=== PATIENT | female | born 1960 | race Caucasian/White ===

== ENCOUNTER 2019-07-07 13:44 | Emergency (ER) | payer OTHER, SELFPAY ==
[2019-07-07] VITALS (7 sets, daily range): BP systolic 131–163; BP diastolic 74–90; PULSE 84–103; RESP 14–18; TEMP 37.3; O2SAT 94–99; BMI 31.0
--- NOTE | 2019-07-07 13:50 | RAD_ITS ---
STUDY: X-RAY - LEFT ANKLE REASON FOR EXAM: Female, 59 years old. Fall TECHNIQUE: 2 view(s) of the ankle. COMPARISON: None. FINDINGS: There is a comminuted fracture of the distal fibula. There is a fracture of the medial malleolus. There is a faint lucency in the lateral view which likely represents a minimally displaced fracture of the posterior malleolus. There is dislocation of the ankle. RAD/Ankle min 3 Views IMPRESSION: Fracture dislocation of the left ankle, as described above. Electronically Signed: Keyur Regalado, at 14:20 EDT Tel , Service support ,
--- NOTE | 2019-07-07 13:52 | ED.VIS.LOWEX ---
History of Present Illness <Andrey Marquez - Last Filed: 07/07/19 15:02> Informant: Patient Occurred: Today Mechanism/Context: Fall Onset: Today Context: Sudden Onset Timing: Continuous Quality of Pain: Sharp Location: left ankle Current Severity: Mild Maximum Severity: Moderate Worsened by: movement Relieved by: nothing Associated Symptoms: Negative for: Parasthesia, Weakness, Loss of Funtion Narrative: 59-year-old female presents by squad with a left ankle injury. Patient was on a stool standing cleaning windows fell and injured her left ankle. She did not hit her head or lose consciousness and she denies any other injuries at this time. She is not on anticoagulation. She denies numbness or tingling. She denies history of injury or surgery to this extremity previously. Tetanus Immunization: Unknown Prior similar symptoms: No Recent Illness/Hospitalization: No <Georgi Gonzalez - Last Filed: 07/07/19 15:16> Chief Complaint: Lower Extremity Injury Past Medical History <Andrey Marquez - Last Filed: 07/07/19 15:02> Prior records reviewed: Yes Past Medical History: None Surgical History: - - tubal ligation Lives: With Family Smoking Status: Current every day smoker Alcohol: Occasional Drugs: None <Georgi Gonzalez - Last Filed: 07/07/19 15:16> - Allergies and Home Meds Allergies/Adverse Reactions: Allergies aspirin Allergy (Verified 07/07/19 13:46) Shortness of breath clarithromycin [From Biaxin] Allergy (Verified 07/07/19 13:46) Rash zinc Allergy (Verified 07/07/19 13:46) Rash Primary Care Physician: NOT,DEFINED [Primary Care Provider] - (your orthopaedic surgeon of choice -- call tuesday for appt JILLIAN) Review of Systems All systems negative except as indicated General: Denies: Chills, Fever, Malaise Eyes: Denies: Visual changes - bilaterally, Blurred Vision - bilaterally, Diplopia ENT: Denies: Rhinorrhea, Sore throat Cardiovascular: Denies: Chest pain, Palpitations, Heart racing Respiratory: Denies: Dyspnea, Cough, Sputum Gastrointestinal: Denies: Abdominal pain, Nausea, Vomiting, Diarrhea Genitourinary: Denies: Dysuria, Hematuria, Frequency Musculoskeletal: Reports: Extremity Pain. Denies: Myalgias, Arthralgias, Neck pain, Back pain Skin: Denies: Rash, Abscess, Abrasions, Wounds Neurological: Denies: Headache, Weakness, Parasthesia, Numbness <Georgi Gonzalez - Last Filed: 07/07/19 15:16> Physical Exam Vital Signs/Narrative: Vital Signs Temp Pulse Pulse Pulse Pulse Resp Resp 07/07/19 14:55 85 17 07/07/19 14:50 90 18 07/07/19 14:45 91 18 07/07/19 14:35 103 H 102 H 86 16 07/07/19 14:18 88 18 07/07/19 13:45 99.2 F H 103 H 15 Resp Resp BP BP BP BP Pulse Ox 07/07/19 14:55 146/81 H 95 07/07/19 14:50 137/79 H 95 07/07/19 14:45 145/88 H 97 07/07/19 14:35 14 18 161/85 H 147/82 H 136/74 H 07/07/19 14:18 154/88 H 97 07/07/19 13:45 163/90 H 95 <Andrey Marquez - Last Filed: 07/07/19 15:02> Vital Signs/Narrative: Vital Signs Temp Pulse Resp BP Pulse Ox 07/07/19 13:45 99.2 F H 103 H 15 163/90 H 95 Inital Vital Signs reviewed: Yes - Extremity Exam Left Ankle: Contusion, Deformity, Edema, - - Patient has an obvious deformity to her left ankle. The skin is intact. DP and PT pulses are normal. She had normal capillary refill and sensation of all 5 toes. She had no bony tenderness of her foot leg or knee. General: Well nourished, Well developed Head: Normocephalic, Atraumatic. Negative for: Trauma Eyes: Perrl, EOMI ENT: No Trauma, Moist Mucous Membranes Neck: Nontender, Full ROM. Negative for: Spinal Tenderness, Paraspinal Tenderness Cardiovascular: Regular rate, Regular rhythm, No murmurs Respiratory: No distress, CTA bilaterally, Chest nontender Abdomen: Soft, Nontender, Nondistended, Normal bowel sounds, No masses Back: Nontender Skin: Normal color, No rash, Trauma Neurological: Alert, Oriented x3 Psychological: Normal affect, Normal Mood <Georgi Gonzalez - Last Filed: 07/07/19 15:16> Diagnostic/Tx/Re-eval - Medical Decision Making Seen and evaluated independently and in conjunction with physician assistant tennis professional. Agree with notes above unless documented otherwise. Patient has isolated closed fracture dislocation trimalleolar left ankle. See the procedure note and x-rays for details, she was sedated safely, reduced, splinted, there were no complications. She will follow-up as an outpatient and [place] [facility], she has an orthopedic surgeon in mind that she will see so she was given her x-rays on disc. <Andrey Marquez - Last Filed: 07/07/19 15:02> Impressions Ankle X-Ray 07/07/19 14:49 IMPRESSION: Status post reduction and casting with improved alignment. Electronically Signed: Keyur Fabricio, at 15:07 EDT Tel , Service support , 07/07/19 13:50 Ankle min 3 Views [RAD] Stat 07/07/19 14:49 XRAY Ankle [Ankle 2 Views] [RAD] Stat Laboratory Results 07/07/19 07/07/19 13:55 13:55 WBC 9.8 RBC 4.90 Hgb 13.7 Hct 44.1 MCV 90.0 MCH 28.0 MCHC 31.1 L RDW Std Deviation 47.6 H RDW Coeff of Delilah 14.4 Plt Count 369 MPV 9.1 Immature Gran % (Auto) 0.300 Neut % (Auto) 65.4 Lymph % (Auto) 26.1 [place] % (Auto) 6.9 Eos % (Auto) 0.9 Baso % (Auto) 0.4 Absolute Neuts (auto) 6.4 Absolute Lymphs (auto) 2.56 Nucleated RBC % 0 Sodium 140 Potassium 3.6 Chloride 106 Carbon Dioxide 28.0 Anion Gap 6 BUN 13 Creatinine 1.08 H Estim Creat Clear Calc 44.36 Est GFR (MDRD) Af Amer 67 Est GFR (MDRD) Non-Af 55 L BUN/Creatinine Ratio 12.0 Glucose 134 H Calcium 8.7 <Georgi Gonzalez - Last Filed: 07/07/19 15:16> Procedures - Lower Extremity Splints Lower Extremity Splint: Jose Espinosa - Short leg posterior and sugar tong; neurovascularly intact distally after splinting. Splint Fabrication: Fabricated Location: Left Procedure(s): Procedural sedation --patient had been n.p.o. for just over 1 hour at the time of sedation, so we did not sedate her deeply. We discussed the risks of aspiration with her, and alternative treatments other than sedation. She consented to sedation and preferred it despite the risks. She was pretreated with fentanyl 50 mcg and midazolam 4 mg. She was on nasal cannula oxygen, IV fluids, monitored the entire time, there were no complications and the patient tolerated sedation well and recovered uneventfully. Closed reduction left closed ankle fracture dislocation --prior to reduction, there was a 3-4-second cap refill, skin intact. Sedation as above was performed. Assisted by both physician assistant tennis professional and nursing, manual reduction was performed very easily, and splinting was performed. Neurovascularly intact distally after closed reduction with 2-3-second cap refill. X-rays show good reduction. <Andrey Marquez - Last Filed: 07/07/19 15:02> ED Disposition <Andrey Marquez - Last Filed: 07/07/19 15:02> <Georgi Gonzalez - Last Filed: 07/07/19 15:16> - Plan for ED Patient: Disposition: Home or Assisted Living Diagnosis: Displaced trimalleolar fracture of left lower leg, initial encounter for closed fracture Prescriptions: Oxycodone HCl/Acetaminophen [Percocet 5/325] 1 tab PO Q4H PRN PRN 3 Days #20 tab PRN Reason: Pain Prescription Printed Referrals: NOT,DEFINED [Primary Care Provider] - (your orthopaedic surgeon of choice -- call tuesday for appt JILLIAN) Damien Greco DO [STAFF PHYSICIAN] - Additional Instructions: NO weightbearing left lower extremity; use crutches, walker, assistance, whatever you need.
[2019-07-07 14:00] LABS: Absolute Lymphocyte Count 2.56 X10^3/uL (0.83-4.51); Absolute Neutrophil Count 6.4 X10^3/uL (2.0-7.7); Basophil# 0.04 X10^3/uL; Basophil% 0.4 % (0-1); Eosinophil# 0.09 X10^3/uL; Eosinophils% 0.9 % (0-5); Hematocrit 44.1 % (37-47); Hemoglobin 13.7 g/dL (12.0-15.0); Lymphocyte # 2.56 X10^3/ul (4.0); Lymphocyte % 26.1 % (19-41); Mean Corp Hgb Conc 31.1 g/dL (32-36); Mean Platelet Vol. 9.1 fl (6.2-12.0); Monocyte# 0.68 X10^3/uL; Monocyte% 6.9 % (0-10); NRBC Flagged by Analyzer 0 % (0-5); Neutrophil # 6.42 X10^3/uL (2.7-7.7); Neutrophil % 65.4 % (47-70); Platelet Count 369 K/mm3 (150-450); RBC Distribution Width CV 14.4 % (11.6-14.6); RBC Distribution Width SD 47.6 fl (35.1-43.9); White Blood Count 9.8 K/mm3 (4.4-11.0)
--- NOTE | 2019-07-07 14:05 | ED.RN ---
PTS FAMILY VERY UNDERSTANDING WITH NO VISITORS BUT WOULD LIKE A CALL WITH AN UPDATE OF PT. CALL MOM FIRST KERA - [phone]. IF NO ANSWER PLEASE CALL SISTER MARTIN @ [phone]
[2019-07-07 14:13] LABS: Anion Gap 6 (5-15); BUN 13 mg/dL (7-18); Calcium,Total 8.7 mg/dL (8.5-10.1); Chloride 106 mmol/L (98-107); Creatinine, Serum 1.08 mg/dL (0.55-1.02); EST Glomerular Filtration Rate 55 mL/min (>60); Est Glom Filt Rate - Afr Amer 67 mL/min (>60); Estimated Creatinine Clearance 44.36 ml/min; Glucose 134 mg/dL (74-106); Potassium 3.6 mmol/L (3.5-5.1); Sodium Level 140 mmol/L (136-145)
[2019-07-07] MEDS: fentaNYL 100 MCG/2 ML Ampul 50 MCG IV (14:30)
[2019-07-07] MEDS: Midazolam 5 MG/ML Syringe 4 MG IV (14:34)
--- NOTE | 2019-07-07 14:49 | RAD_ITS ---
STUDY: X-RAY - LEFT ANKLE REASON FOR EXAM: Female, 59 years old. Post reduction TECHNIQUE: 2 view(s) of the ankle. COMPARISON: 07/07/2019 FINDINGS: The patient is status post reduction and casting of the previously seen fracture dislocation of the left ankle. Alignment is improved. RAD/Ankle 2 Views IMPRESSION: Status post reduction and casting with improved alignment. Electronically Signed: Keyur Regalado, at 15:07 EDT Tel , Service support ,
== END 2019-07-07 15:36 | disposition home or self-care (01) ==
LOC: ED 15:19
PROVIDERS: Emergency Provider Physician Assistant Medical
DX: S82.852A Displaced trimalleolar fracture of left lower leg, initial encounter for closed fracture (principal); W08.XXXA Fall from other furniture, initial encounter; Y93.E9 Activity, other interior property and clothing maintenance; Y92.89 Other specified places as the place of occurrence of the external cause; Y99.9 Unspecified external cause status; F17.200 Nicotine dependence, unspecified, uncomplicated
CPT/HCPCS: 27818; 73600; 73610; 80048; 85025; 96374; 96375; 99152; 99285; J7030; A4216

== ENCOUNTER 2019-07-19 06:14 | Day surgery (SDC) | payer OTHER, SELFPAY ==
[2019-07-07 13:45] VITALS: BMI 31.0
--- NOTE | 2019-07-12 15:13 | CT_ITS ---
STUDY: CT LEFT ANKLE WITHOUT CONTRAST REASON FOR EXAM: Female, 59 years old. DISPLACED TRIMALLEOLAR FX RADIATION DOSAGE (If Supplied By Facility): CTDIvol = ( 15.35 ) mGy, DLP = ( 449.71 ) mGycm TECHNIQUE: Thin section transaxial imaging of the ankle was obtained, with sagittal and coronal reconstructed images. Individualized dose optimization techniques were used for this CT. COMPARISON: Comparison is made with prior radiographs dated July 07, 2019. FINDINGS: There is evidence of an avulsion fracture of the medial malleolus. There is evidence of an oblique fracture of the lateral malleolus with a mild lateral displacement of the distal fracture fragment. There is also evidence of a nondisplaced vertical fracture of the distal portion of the tibia. There is evidence of a asymmetry of the ankle mortise. A spur is seen at the insertion of the Achilles tendon.. Normal subtalar, talonavicular and calcaneocuboid articulations. Normal navicular-cuneiform, cuneiform tarsal bones and intercuneiform articulations. Normal tarsometatarsal articulations and visualized metatarsi. Diffuse soft tissue swelling. CT/Extremity Lower without Contra IMPRESSION: Trimalleolar fracture as described. Asymmetry of the ankle mortise. Diffuse soft tissue swelling. Electronically Signed: Gerson Gonzalez, at 15:41 EDT , Service support ,
--- NOTE | 2019-07-12 15:13 | RAD_ITS ---
STUDY: X-RAY CHEST REASON FOR EXAM: Female, 59 years old. PRE OP ANKLE TECHNIQUE: PA and lateral views of the chest. COMPARISON: None. FINDINGS: Scattered calcified granulomas. No acute abnormality is seen. There is no demonstrated pleural abnormality. Normal size heart. Normal mediastinum and brandy. Normal visualized pulmonary arteries. Normal visualized aortic arch and descending thoracic aorta. There are diffuse degenerative changes of the visualized thoracic spine. Mild dextroscoliosis. Normal visualized ribs, clavicles, and shoulders. There is no demonstrated abnormality of the visualized soft tissue structures of the upper abdomen. RAD/Chest PA and Lateral IMPRESSION: No acute abnormality is seen. Electronically Signed: Gerson Gonzalez, at 15:39 EDT , Service support ,
--- NOTE | 2019-07-12 15:14 | EKG12_ITS ---
Test Reason : PREOP Blood Pressure : / mmHG Vent. Rate : 106 BPM Atrial Rate : 106 BPM P-R Int : 148 ms QRS Dur : 090 ms QT Int : 332 ms P-R-T Axes : 066 -39 051 degrees QTc Int : 441 ms Sinus tachycardia Left axis deviation Abnormal ECG No previous ECGs available Confirmed by TANYA BUTLER, PAUL ([id number]), editor index MICK CULLEN ([id number]) on 07/17/2019 9:00:19 AM Referred By: Al Cullen Confirmed By:PAUL MARTÍNEZ MD
[2019-07-12 17:01] LABS: Partial Thromboplast Time 26.7 Seconds (24.1-36.2); Prothrombin Time (Protime)PT. 12.2 SECONDS (11.7-14.9)
[2019-07-12 17:26] LABS: Hemoglobin A1c 5.8 % (3.8-5.6)
[2019-07-19] VITALS (8 sets, daily range): BP systolic 130–154; BP diastolic 74–92; PULSE 72–80; RESP 14–18; TEMP 36.4–36.9; O2SAT 92–99; BMI 29.3
[2019-07-19] MEDS: Lactated Ringers 1,000 ML 100 ML IV (07:08)
--- NOTE | 2019-07-19 07:50 | RAD_ITS ---
STUDY: X-RAY - LEFT ANKLE REASON FOR EXAM: Female, 59 years old. Left ORIF Trimalleolar TECHNIQUE: 3 view(s) of the ankle. COMPARISON: None. FINDINGS: Intraoperative imaging provided for open reduction and internal fixation of the lateral malleolar fracture utilizing screws and sideplate fixation device. RAD/Ankle min 3 Views IMPRESSION: ORIF lateral malleolar fracture. There is good alignment. Electronically Signed: Gerson Gonzalez, at 13:56 EDT , Service support ,
[2019-07-19] MEDS: Cefazolin 2 GM in 0.9% Normal Saline 100 ML IV (08:14)
[2019-07-19] MEDS: Bupivacaine Mpf 0.5% 30 ML VIAL (08:30)
--- NOTE | 2019-07-19 10:42 | RAD_ITS ---
STUDY: X-RAY - LEFT ANKLE REASON FOR EXAM: Female, 59 years old. ORIF the trimalleolar fracture TECHNIQUE: 3 view(s) of the ankle. COMPARISON: Comparison is made with prior study done earlier in the day. FINDINGS: The patient is status post ORIF of the lateral malleolar fracture utilizing screw and sideplate fixation device. There is evidence of a screw fixation of the medial malleolar fracture. There is good alignment. RAD/Ankle min 3 Views IMPRESSION: Status post ORIF of the medial and lateral malleolar fractures. There is good alignment. Postoperative soft tissue changes. Electronically Signed: Gerson Gonzalez, at 13:57 EDT , Service support ,
--- NOTE | 2019-07-19 10:47 | PCM.DC.ORTHO ---
Discharge Diet: No Restrictions Discharge Activity: May Not Drive, May Not Shower, Use Walker, Use Crutches Ice area for (Minutes): 20 Weight Bearing Status: No weight bearing Keep extremity elevated above heart level: Left Leg Additional Activity Instructions:: 1. Keep dressing clean, dry, intact to the left lower extremity. Do not remove dressing. Do not get dressing wet. If get dressing wet, call office for further instructions. I recommend sponge bathing only at this time. 2. Elevate left foot above level of heart as much as possible until follow-up appointment. 3. Ice around the left knee 20 minutes on, 20 minutes off, every hour while you are awake until follow-up appointment. 4. No walking or standing on left foot. Use crutches/walker/scooter for assistance. 5. [facility], as instructed. Begin taking these when you start to feel pain. Take them as needed and as instructed. Can supplement with Tylenol, but make sure to not take more than 3000mg of Tyelenol in a 24 hour period. 6. Begin taking the doxycycline (antibiotic) tomorrow, July 19. This is twice a day. 7. Begin taking Xarelto tomorrow, July 19, as instructed. Call your doctor if your incision/area has: Sudden Increased Bleeding, Increased Pain/ Swelling Call your doctor if you observe: Fever of 101 or Higher, Coldness, Increased Pain, Inability to have a bowel movement, Shortness of breath, Chest pain, Prolonged hiccoughing, Increased palpitations (irregular heartbeat), Calf discomfort, Uncontrolled pain Cleanse incision/area with: Keep Dressing Clean & Dry Allergies/Adverse Reactions: Allergies aspirin Allergy (Verified 07/19/19 06:51) Shortness of breath clarithromycin [From Biaxin] Allergy (Verified 07/19/19 06:51) Rash zinc Allergy (Verified 07/19/19 06:51) Rash yellow jacket stings Allergy (Severe, Uncoded 07/19/19 06:51) Anaphylaxis environmental Allergy (Uncoded 07/19/19 06:51) Rash Medications to take at Discharge Acetaminophen [Tylenol Extra Strength] 500 - 1,000 mg PO Q6H PRN PRN 07/13/19 Epi Pen (for allergic rxn) 0.3 mg IM X1 07/13/19 Fluticasone 0.05% [Flonase Nasal [place]] 1 spray NASAL DAILY 07/13/19 Primary Care Physician: NAOMI BABIN [Other] Test Results: Test results from this visit will be discussed in further detail at your follow-up appointment, if applicable. Please Follow Up With: Al Cullen DPM When: as previously instructed Proposed Discharge Date: 07/19/19
--- NOTE | 2019-07-19 10:53 | PCM.OPRPT ---
Problem List (1) Fracture of ankle, trimalleolar, left, closed Status: Acute Qualifiers: Encounter type: initial encounter Qualified Code(s): S82.852A - Displaced trimalleolar fracture of left lower leg, initial encounter for closed fracture Report of Operation Date of Procedure: 07/19/19 Pre-Operative Diagnosis: 1. Left ankle joint trimalleolar fracture. 2. Left ankle joint dislocation Post-Operative Diagnosis: Same as preoperative Surgery/Procedure Performed:: 1. Left ankle open reduction with internal fixation of trimalleolar fracture. 2. Application of bone graft, left fibula. 3. Primary repair of deltoid ligament. Description of Surgical Findings:: Consistent with diagnosis. Comminution of fibular fracture noted. Due to multiple fragments, it was necessary to place a bone graft. manager code: Gauri Yoo Type of Anesthesia:: General/Regional - with a popliteal and saphenous block to the left lower extremity Anesthesiologist: Francisco Javier Padilla Special Medications: 2 g of Ancef given preoperatively Specimen's removed: None Drains: None Estimated Blood Loss (mL): 50 Description of Procedure: Anesthesia: General with a popliteal and saphenous block to left lower extremity Hemostasis: Pneumatic thigh tourniquet placed at the level of left thigh at 250 mmHg for 101 minutes Materials: #1. [place] Vitoss 2. [place] 4 hole distal lateral fibula plate. 3. [place] Asnis 4.0 x 30 mm partially-threaded screw. 4. Jovita Asnis 4.0 x 50 mm partially-threaded screw. 5. Jovita 3.5 x 12 mm locking screw x2. 6. [place] 3.5 x 14 mm locking screw. 7. Jovita 3.5 x 12 mm nonlocking screw x2. 8. [place] 3.5 x 14 mm nonlocking screw x2. 9. Jovita 3.5 x 16 mm nonlocking screw x1. 10. Size 2-0 Vicryl. 11. Size 3-0 Vicryl. 12. Size 4-0 nylon. Injectables: None Condition: Stable Indications: Patient is a 59-year-old female with multiple medical problems who suffered a slip and fall while at her mother's house on July 07, 2019. Patient states that she was up on a stepstool cleaning windows. She did lose her balance, and fell with full weight on her left ankle. Patient felt immediate pain in her left ankle, and noticed a deformity. Patient presented to the [facility] emergency department after the injury. X-rays were taken, revealing a trimalleolar fracture of the left ankle along with ankle joint dislocation. At that time, a closed reduction was performed, patient was then placed in a posterior splint and sent for follow-up. Patient initially presented to my office on July 08. At that time, clinical evaluation revealed significant swelling with loss of skin lines noted around the left ankle. I discussed with the patient that due to the significant swelling, we would have to wait a period of 10 to 14 days to allow the soft tissue edema to decrease. In the meantime, I ordered a CT scan of the left ankle for preoperative planning along with preoperative testing. I did discuss with the patient that due to the deformity that was present along with the fracture of her ankle, I recommended surgical intervention. I did discuss with the patient that since she is a smoker, she is at a significantly higher risk for delayed or nonhealing wound and delayed or nonhealing bone. I instructed the patient on proper smoking cessation, and the need for her to reduce and eventually quit her smoking to aid in her healing. Patient was agreeable to this. Patient then presented back to my office on July 15. A significant reduction in the swelling was noted. CT scan was then reviewed with the patient in detail at that time. I discussed with the patient the surgical intervention of the left ankle, including open reduction with internal fixation of the ankle fracture. Patient displayed verbal understanding. Patient was agreeable to the surgical intervention, which was scheduled today, July 19, 2019. Operative report: Before the patient was brought to the operating room, the risks, benefits, possible outcomes, possible complications of the procedure were discussed with the patient. These included but not limited to delayed or nonhealing wounds, delayed or nonhealing bone, infection, DVT, loss of function of limb, decreased function of limb, loss of limb, loss of life. COVID-19 risks were discussed with her as well. Since this surgery was necessary to avoid permanent dysfunction of her limb, patient understood and accepted the risks. Her smoking status and proper cessation was reiterated once again. All the patient's questions were answered to her satisfaction and all of her concerns were addressed. No guarantees were made as to the outcome of the procedure. Patient understood all aspects of the procedure, and consent was then signed by the patient. Before the patient was brought to the operating room, the anesthesiologist administered a popliteal block to the left lower extremity. Patient was then brought to the operating room and placed on the operating table in the supine position. Care was taken make sure that adequate padding was placed in all pressure points. Anesthesia then to control the airway, and general anesthesia was obtained. Next, 10 mL of 0.5% Marcaine plain was distributed a proximal saphenous nerve block fashion in the area of the medial tibial tuberosity. Next, well-padded pneumatic thigh tourniquet was placed at the level of the left thigh. The left foot, ankle, leg were then scrubbed, prepped, draped in the usual sterile manner. At this time, attention was then directed to the lateral aspect of the left ankle. Radiographic evaluation was performed to determine the level of the distal tip of the lateral malleolus, fracture of the fibula, and the lateral aspect of the distal one third of the fibular shaft. These were then marked on the patient. Of note was that patient had a callus formation noted on the lateral aspect of the distal fibula. Careful incision planning was performed. Attention was then directed to the medial aspect the left ankle in the area of the medial malleolus fracture. The level of the fracture along with the distal tip of the medial malleolus were palpated and marked on the patient, with confirmation using radiographs. At this time, the left lower extremity was elevated and exsanguinated via Esmarch and inflation with pneumatic thigh tourniquet was performed to 250 mmHg. Attention was then directed back to the lateral aspect the left ankle. At this time, a #15 blade was used to perform a curvilinear longitudinal incision starting at the distal aspect the lateral malleolus extending proximally to the lateral aspect of the distal one third of the fibular shaft. This was performed to avoid the callus tissue formation. This incision was deepened utilizing sharp and blunt dissection. Care was taken retract all vital neural and vascular structures. All bleeders were cauterized and ligated as necessary. Next, a linear periosteal incision was made in line with the original skin incision. The periosteal and capsular structures were then reflected anteriorly and posteriorly, thus exposing the fibular fracture at the operative site. At this time, upon viewing the fibular fracture, comminuted pieces were noted. These were multiple in nature, specifically in the anterior aspect of the fibula. It was incredibly difficult to reapproximate these pieces. Thus, it was determined that a bone graft will be placed in this area when the fibular fracture was reduced. At this time, a curette was used to remove any fibrous tissue contained within the fracture fibula. The surgical site was irrigated with copious amounts normal sterile saline. At this time, the fibula fracture was then reduced and held via temporary fixation. Radiographs were then performed. The fibula was noted to be out to length at this time. Slight external rotation was noted of the distal fibula. Multiple attempts were made to reduce this. Radiograph evaluation was performed, and adequate reduction was obtained. The fibula was noted to be out to length at this time. This was then held via temporary fixation. At this time, a [place] 3.5 nonlocking screw was placed from anterior superior to posterior inferior across the fracture fragment to aid as an interfragmentary screw. This was inserted in standard AO fixation and as perpendicular to the fracture as possible. Of note during insertion of the screw was adequate compression of the fracture fragments. Furthermore, no shifting any of the fragments occurred during insertion of the screw. Once the screw was fully inserted, all temporary fixation was then removed. The fibula was noted to be out to length at this time, and and the interfragmentary screw was noted to hold the fibula in the reduced position. Next, the Jovita 4 hole fibular plate was placed over the lateral aspect of the fibula. Radiographic evaluation was performed to determine positioning. Once adequate positioning was had, this was temporarily fixed to the lateral aspect of the fibula. Next, a mixture of nonlocking and locking screws were used to adhere the plate to the bone. Of note during insertion of the screws was the adequate compression of the plate to the bone. Furthermore, no shifting in the fragments occurred during insertion of the screws. Once the screws were fully inserted, all temporary fixation was then removed. Radiograph evaluation was then performed. The hardware noted on the fibula was noted to hold the fibula in the corrected reduced position. The screws noted in either be too long or too short. At this time, live radiograph evaluation was used to perform the hook and cotton test to assess the syndesmosis. The syndesmosis was deemed intact at this time. Attention was then directed back to the anterior aspect of the fibula where the bone void was noted. At this time, the pieces of bone that were comminuted in the anterior fibular were crushed up and mixed with Jovita Vitoss. These were then applied to that void site. At this time, radiograph evaluation was used to assess the posterior malleolus. At this time, the posterior malleolus was noted to be reduced from preoperative assessment. Furthermore, the posterior malleolus was noted to be less than 25% of the articular surface of the joint. At this time, is determined that no fixation would be needed for the posterior malleolus. Attention was then directed to the medial aspect the left ankle in the area of the medial malleolus. At this time, a curvilinear incision was made starting the medial aspect of the medial malleolus just above the fracture site extending distally and anteriorly past the distal tip of the medial malleolus. This incision was deepened utilizing sharp and blunt dissection. Care was taken retract all vital neural and vascular structures. All bleeders were cauterized and ligated as necessary. At this time, visual inspection was then performed of the deltoid ligament, which was noted to have tearing. It was determined that this deltoid ligament would be repaired. Next, dental pick was used to reduce the medial malleolus in the correct the reduced position. This was then held via temporary fixation. At this time, radiographic evaluation was then performed. The medial malleolus was noted to be held back in the reduced position. Next, the [place] 4.0 Asnis screws x 2 were placed from the inferior aspect of the medial malleolus and into the midportion of the tibia. These were inserted in standard AO fixation. Of note during insertion of the screws was the adequate compression of the medial malleolus fracture. Furthermore, no shifting of the fragment occurred during insertion of the screws. Once the screws were fully inserted, all temporary fixation was then removed. Radiographic evaluation was then performed once again. The medial malleolus was noted to be held in the correct the reduced position. Furthermore, the screws were noted to not to be too long or too short and were well contained within the medullary canal of the tibia. Radiograph evaluation was then performed once again. The fibula was noted to be out the length at this time. The hardware was noted to hold the fibula in the reduced position, the hardware was noted to not be too long or too short. The medial malleolus was noted to be back to the reduced position. Furthermore, the hardware was noted to hold the medial malleolus in the corrected reduced position. The posterior malleolus was then assessed once again, and it was deemed that no internal fixation was needed. The syndesmosis was checked once again, and was deemed intact under live radiograph evaluation. At this time, the pneumatic thigh tourniquet was then released and a prompt hyperemic response noted to the entirety of the left lower extremity. All bleeders were cauterized and ligated as necessary. Each surgical site was then irrigated with copious amounts of normal sterile saline. The deltoid ligament of the medial malleolus was then repaired utilizing size 2-0 Vicryl in a pants over vest stitch fashion. Good coaptation of the deltoid ligament was achieved. The subcutaneous tissue of the medial malleolus surgical site was reapproximated coapted utilizing 2-0 Vicryl and 3-0 Vicryl. The skin of the medial malleolus surgical site was reapproximated coapted using 4-0 nylon in a simple interrupted and horizontal mattress fashion. The periosteal and capsular structures of the lateral surgical site were reapproximated and coapted utilizing size 2-0 Vicryl and 3-0 Vicryl. The subcutaneous tissue was reapproximated coapted utilizing 3-0 Vicryl. The skin was reapproximated coapted utilizing 4-0 nylon in a simple interrupted horizontal mattress fashion. Each surgical site was then dressed with Betadine soaked gauze, and a dry sterile dressing consisting of 4 x 4 gauze, ABD pads, wrapped with Kerlix. The left foot and ankle were then wrapped with an Anastacio bandage. At this time, a stockinette was placed over the left lower extremity for the metatarsal heads up to the tibial tuberosity. Cast padding was wrapped from the metatarsal heads extending proximally to the level just distal to the tibial tuberosity. A posterior splint was fashioned to the left lower extremity and was adhered to the left lower extremity utilizing Anastacio bandages. Care was taken make sure that the foot and ankle held in neutral position as the posterior splint dried. The patient tolerated the anesthesia and the procedure well and was transported to the PACU vital signs stable and neurovascular status intact to left lower extremity. After period of postoperative monitoring, patient was discharged home with written and oral instructions for wound care and follow-up. The surgical territory manager, the nurse practitioner, was utilized throughout the entire procedure. She helped with patient positioning, holding of limb, holding retractors. She helped with exposure throughout. She helped with bandage application, and cast application. Without the surgical territory manager, surgical time would have been increased and surgical outcome could have been less optimal. - Complications Comminution of fibular fracture noted. Due to multiple pieces, was necessary to place a bone graft to fill the void of the fibula fracture. - Admit VTE Documentation VTE Present on Admission: No VTE Mechan Device Prophylaxis: SCD's VTE Pharm Prophylaxis ordered?: Yes
[2019-07-19] MEDS: HYDROmorphone 0.5 MG/0.5 ML SYRINGE IV (13:09)
[2019-07-19] MEDS: HYDROcodone Bitartrate/Apap 5/325 Tablet PO (13:56)
== END 2019-07-19 14:48 | disposition home or self-care (01) ==
LOC: SDC 06:15 → AC 06:15
PROVIDERS: Anesthesiology; Referring Provider Podiatrist Foot & Ankle Surgery; Visit Provider Podiatrist Foot & Ankle Surgery
DX: S82.852D Displaced trimalleolar fracture of left lower leg, subsequent encounter for closed fracture with routine healing (principal); S93.05XD Dislocation of left ankle joint, subsequent encounter; W08.XXXD Fall from other furniture, subsequent encounter; E78.00 Pure hypercholesterolemia, unspecified; F17.210 Nicotine dependence, cigarettes, uncomplicated; R60.0 Localized edema; Z11.59 Encounter for screening for other viral diseases
CPT/HCPCS: 01470; 27695; 27822; 27899; 64445; 36415; 71046; 73610; 73700; 76000; 83036; 85610; 85730; 87635; 93005; C1713; C9803; G2023; J7120; J2405; U0003

== ENCOUNTER 2022-11-05 11:22 | Inpatient (IN) | payer OTHER, SELFPAY ==
[2022-11-05] VITALS (34 sets, daily range): BP systolic 120–177; BP diastolic 67–112; PULSE 73–114; RESP 13–24; TEMP 36.1–37.2; O2SAT 90–98; BMI 28.5; BMI 31.1
--- NOTE | 2022-11-05 11:28 | CT_ITS ---
STUDY: CTA HEAD AND NECK WITH CONTRAST REASON FOR EXAM: Female, 62 years old. Neuro deficit, acute, stroke suspected RADIATION DOSAGE (If Supplied By Facility): CTDIvol = ( 18.96 ) mGy, DLP = ( 741.16 ) mGycm TECHNIQUE: CT angiography was performed with a multi-detector CT scanner. Data acquisition was obtained from the skull base through the vertex following intravenous administration of IV 100mL [id number]-[id number]. MIP images were reconstructed from the axial data set. Post-processing of the angiographic images was performed, with multiplanar reformation and 3D reconstruction. Individualized dose optimization techniques were used for this CT. COMPARISON: No relevant priors. FINDINGS: Normal bilateral petrous carotid arteries. There is calcified plaque formation of the right cavernous carotid artery, without a cross-sectional luminal stenosis. There is calcified plaque formation of the left cavernous carotid artery, without a cross-sectional luminal stenosis. Normal right A1 segments of the anterior cerebral artery. Normal left A1 segments of the anterior cerebral artery. Normal intact anterior communicating artery (ACOM). Normal bilateral A2 segments of the anterior cerebral arteries. Normal right M1 and M2 segments of the middle cerebral arteries, with a normal M1 bifurcation. Normal left M1 and M2 segments of the middle cerebral arteries, with a normal M1 bifurcation. Normal right posterior communicating artery (PCOM). Normal left posterior communicating artery (PCOM). Normal bilateral vertebral arteries. Normal basilar artery with a normal basilar bifurcation. The visualized bilateral superior cerebellar (SCA) arteries are normal. Normal bilateral P1, P2 and visualized P3 segments of the posterior cerebral arteries. There is no demonstrated aneurysm of the [place]. There is no demonstrated abnormality of the visualized brain. AORTIC ARCH: There is atherosclerotic calcific plaque formation of the aortic arch and great vessels arising from the aortic arch, without a hemodynamically significant stenosis. There is a normal origin of the brachiocephalic, left common carotid, and left subclavian arteries. Calcific plaque at the origin of the left subclavian artery and left common carotid artery. . RIGHT CAROTID ARTERIES: Normal right common carotid artery (CCA). Normal right common carotid bulb. There is moderate atherosclerotic plaque formation of the origin of the right internal carotid artery with an estimated stenosis of 50-69% stenosis. Normal visualized cervical portion of the right internal carotid artery. Normal origin of the right external carotid artery (ECA). LEFT CAROTID ARTERIES: Normal left common carotid artery (CCA). Normal left common carotid bulb. There is mild atherosclerotic plaque formation of the origin of the left internal carotid artery with less than 50% cross sectional diameter stenosis. Normal visualized cervical portion of the left internal carotid artery. Normal origin of the left external carotid artery (ECA). VERTEBRAL ARTERIES: Normal bilateral vertebral arteries. CT/STROKE CTA Head AND Neck W/Con IMPRESSION: Plaque formation at the origin of the right internal carotid artery causing between 50 and 69% stenosis. Calcific plaque at the origin of the left internal carotid artery causing approximately 50% narrowing. N.B. : The above Results were Read Back by Gerson Gonzalez MD to Dr Alma MD, and understanding confirmed on 11/05/2022 12:18:27 (ET). Electronically Signed: Gerson Gonzalez MD at 12:19 EDT ,
--- NOTE | 2022-11-05 11:28 | CT_ITS ---
STUDY: CT HEAD STROKE PROTOCOL W/O CONTRAST INJECTION REASON FOR EXAM: Female, 62 years old. Neuro deficit, acute, stroke suspected RADIATION DOSAGE (If Supplied By Facility): CTDIvol = ( 44.99 ) mGy, DLP = ( 779.24 ) mGycm TECHNIQUE: Transaxial CT imaging of the brain was performed without administration of intravenous contrast material. Individualized dose optimization techniques were used for this CT. COMPARISON: No relevant priors. FINDINGS: Normal soft tissue structures. Normal calvarium. Normal size ventricles and extra-axial spaces for the patient''s age. Normal white matter tracts of the cerebral hemispheres. Normal basal ganglia and thalami. Normal brainstem. Normal cerebellum. There is no intracranial hemorrhage. There are no findings of an acute ischemic infarction. Atherosclerotic plaque formation of the cavernous portions of the internal carotid arteries bilaterally. Normal visualized paranasal sinuses. ASPECT score: 10 CT/STROKE Brain/Head without Cont IMPRESSION: Normal unenhanced CT scan of the brain. N.B. : The above Results were Read Back by Gerson Gonzalez MD to Dr Alma MD, and understanding confirmed on 11/05/2022 11:42:23 (ET). Electronically Signed: Gerson Gonzalez MD at 11:43 EDT ,
--- NOTE | 2022-11-05 11:30 | ED.VIS.STROK ---
HPI History of Present Illness Chief Complaint: Stroke Alert Informant: patient Narrative Narrative: Patient presents with weakness and numbness to the left arm that started suddenly 15 minutes prior to arrival, she walked in the front door on her own. She states she feels a little dizzy, off balance, and has some numbness in the left lower face and left upper extremity, but denies any other symptoms. She denies leg issues. She denies headache. She has no vision change. She states she had just gotten out of the shower when this started out of nowhere. She has never had this before. She is healthy except for being a smoker. She has had a tubal ligation in the past and an orthopedic ankle surgery neither of which were recent, no recent injuries, no chest pain or shortness of breath or recent illness otherwise. She takes no medications. She sees a doctor every now and then. [facility] Medical History (Updated 11/05/22 @ 12:[address] Andrey Marquez MD) No acute medical problems Medical History no medical history no medical history Home Medications acetaminophen 500 mg tablet 500 - 1,000 mg PO Q6H PRN PRN Pain Or Fever 07/13/19 [History Last Taken Unknown] epinephrine 0.3 mg/0.3 mL injection, auto-injector 0.3 mg IM X1 yellow jackets 07/13/19 [History Last Taken Unknown] fluticasone propionate 50 mcg/actuation nasal spray,suspension 1 spray NASAL DAILY allergies 07/13/19 [History Last Taken Unknown] Allergy/AdvReac Type Severity Reaction Status Date / Time insect venom [yellow jacket] Allergy Severe Anaphylaxis Verified 11/05/22 12:06 aspirin Allergy Shortness Verified 11/05/22 12:06 of breath clarithromycin [From Biaxin] Allergy Rash Verified 11/05/22 12:06 Environmental Allergies: Allergy Rash Verified 11/05/22 12:06 Uncoded zinc Allergy Rash Verified 11/05/22 12:06 Social History Smoking Status: Current every day smoker tobacco type: cigarettes ROS ROS ED Constitutional Constitutional ED: Denies chills or fever(s) Eyes Eyes: Denies change in vision or diplopia ENT ENT ED: Denies rhinorrhea or sore throat Cardiovascular Cardiovascular: Denies chest pain or palpitations Respiratory/Chest Respiratory/Chest: Denies cough or dyspnea Gastrointestinal Gastrointestinal: Denies abdominal pain, diarrhea, nausea or vomiting Genitourinary Genitourinary ED: Denies dysuria or hematuria Musculoskeletal Musculoskeletal: Denies back pain or neck pain Integumentary Denies abscess or rash Neurologic Neurologic: Reports as per HPI, disequilibrium, paresthesias LUE (And left lower face) and weakness; Denies headache(s) or vertigo Psychiatric Psychiatric: Denies anxiety or suicidal thoughts EXAM Physical Exam Const Vital Signs: 11/05/22 11:26 11/05/22 11:33 11/05/22 11:44 Temperature 97 F L 97 F L Temperature Source Temporal Temporal Pulse Rate 114 H 114 H Respiratory Rate 18 18 Blood Pressure 177/112 H 177/112 H 159/84 H Blood Pressure Mean 133 133 Blood Pressure Source Blood Pressure Position Blood Pressure Location Pulse Ox 91 91 Oxygen Delivery Method Room Air Room Air 11/05/22 11:58 11/05/22 11:59 11/05/22 11:59 Temperature Temperature Source Pulse Rate 84 91 Respiratory Rate 15 17 Blood Pressure 165/95 H 155/92 H Blood Pressure Mean 118 113 Blood Pressure Source Monitor Blood Pressure Position Semi-Fowlers Blood Pressure Location Left Arm Pulse Ox 95 98 94 Oxygen Delivery Method Room Air Room Air Room Air 11/05/22 12:03 11/05/22 12:14 11/05/22 11:44 Temperature 98.2 F Temperature Source Oral Pulse Rate 89 92 93 Respiratory Rate 15 17 15 Blood Pressure 155/92 H 167/87 H 159/84 H Blood Pressure Mean 113 113 109 Blood Pressure Source Monitor Monitor Blood Pressure Position Semi-Fowlers Semi-Fowlers Blood Pressure Location Left Arm Left Arm Pulse Ox 94 94 97 Oxygen Delivery Method Room Air Room Air Room Air 11/05/22 12:26 11/05/22 11:44 11/05/22 12:29 Temperature Temperature Source Pulse Rate 83 93 89 Respiratory Rate 17 15 18 Blood Pressure 165/91 H 159/84 H 147/86 H Blood Pressure Mean 115 109 106 Blood Pressure Source Monitor Blood Pressure Position Semi-Fowlers Blood Pressure Location Left Arm Pulse Ox 93 97 93 Oxygen Delivery Method Room Air Room Air Room Air 11/05/22 12:30 11/05/22 12:44 Temperature Temperature Source Pulse Rate 85 90 Respiratory Rate 22 H 18 Blood Pressure 147/86 H 159/70 H Blood Pressure Mean 106 99 Blood Pressure Source Monitor Blood Pressure Position Semi-Fowlers Blood Pressure Location Left Arm Pulse Ox 94 94 Oxygen Delivery Method Room Air Room Air Positive well nourished and well developed General Appearance ED: well developed and NAD HEENT Reports moist mucous membranes normocephalic and atraumatic Eyes PERRL and EOMs intact bilaterally Neck full ROM and supple Neck Narrative: No carotid bruits Resp normal respiratory effort and clear to auscultation bilaterally Cardio regular rate, regular rhythm and no murmurs Cardio Narrative: Equal bilateral 2+/4 radial pulses GI non-tender and non-distended Auscultation: normoactive bowel sounds Palpation: soft Back/Spine no CVA tenderness General Back: other FROM Extremity normal to inspection General Extremety ED: Negative for edema, pulses abnormal or tenderness General Extremity: Negative for edema or pulses abnormal Neuro oriented x3 and CN's II-XII intact bilaterally Neuro Narrative: See NIHSS. Keenly alert. Answers questions appropriately. Normal gait. Sensorium / Orientation: awake and alert Psych mental status grossly normal Skin no rashes or lesions noted and no wounds NIHSS NIHSS Initial: 1a Level of Consciousness: 0 1b LOC Questions (Score 2 if aphasic/stupor): 0 1c LOC Commands (Only score 1st attempt): 0 2 Best Gaze (If aphasic, use reflexive mvmts.): 0 3 Visual: 0 4 Facial Palsy: 1 5 Motor Arm Right (UN = amputation/fusion): 0 5 Motor Arm Left: 3 6 Motor Leg Right: 0 6 Motor Leg Left: 0 7 Limb ataxia (Only + if out of proportion): 0 8 Sensory (Aphasia/stupor=0 or 1, coma=2): 1 9 Best Language: 0 10 Dysarthria (mute, coma=2, intubated=UN): 0 11 Extinction and Inattention (only scored if +): 0 Total Score: 5 pre-TNK: 1a Level of Consciousness: 0 1b LOC Questions (Score 2 if aphasic/stupor): 0 1c LOC Commands (Only score 1st attempt): 0 2 Best Gaze (If aphasic, use reflexive mvmts.): 0 3 Visual: 0 4 Facial Palsy: 1 5 Motor Arm Right (UN = amputation/fusion): 0 5 Motor Arm Left: 1 6 Motor Leg Right: 0 6 Motor Leg Left: 0 7 Limb ataxia (Only + if out of proportion): 0 8 Sensory (Aphasia/stupor=0 or 1, coma=2): 1 9 Best Language: 0 10 Dysarthria (mute, coma=2, intubated=UN): 0 11 Extinction and Inattention (only scored if +): 0 Total Score: 3 MDM MDM MDM Narrative Medical decision making narrative: Stat BGT 118. Blood pressure initially 177/112, on recheck 155/92 and then prior to giving TNK diastolic in the 80s. Patient does not have any contraindications to TNK, and CT shows no bleed, I reviewed the images and discussed with the radiologist. I ordered TNK and pharmacy brought to the bedside, we held it until we discussed with neurology who agreed with giving it although the patient was improving when we repeated the NIH with the neurologist. Discussed pros and cons with the patient, she is well informed of the risks and benefits and is agreeable to the medications understanding that if we wait, we made increased risk for bleeding, and if long enough we may not be able to give the medication, and her weakness in her left arm may not come back as a worst case scenario. History & Record Review Discussion w/independent historian: Patient Additional record(s) reviewed:: No prior records Lab Data Attestation: I reviewed the patient's lab results. Labs: Laboratory Results - last 24 hr 11/05/22 11/05/22 11:25 11:32 WBC 9.4 RBC 5.56 H Hgb 15.2 H Hct 49.3 H MCV 88.7 MCH 27.3 MCHC 30.8 L RDW Std Deviation 49.2 H RDW Coeff of Delilah 15.0 H Plt Count 409 MPV 9.3 Immature Gran % (Auto) 0.600 Neut % (Auto) 62.8 Lymph % (Auto) 27.3 [place] % (Auto) 7.4 Eos % (Auto) 1.3 Baso % (Auto) 0.6 Absolute Neuts (auto) 5.9 Absolute Lymphs (auto) 2.55 Nucleated RBC % 0 Sodium 140 Potassium 3.3 L Chloride 107 Carbon Dioxide 29.0 Anion Gap 4 L BUN 12 Creatinine 0.84 Estim Creat Clear Calc 59.96 Est GFR (MDRD) Af Amer 89 Est GFR (MDRD) Non-Af 73 BUN/Creatinine Ratio 14.4 Glucose 113 H Calcium 8.9 Troponin I High Sens 7 POC Glucose 118 H Radiography Chest X-Ray - ED: 1 View, Read by ED Physician, Normal, Lungs, Mediastinum and No Acute Disease Diagnostic Testing: Clinical Impression(s) from Imaging Studies Brain CT 11/05/22 11:28 IMPRESSION: Normal unenhanced CT scan of the brain. N.B. : The above Results were Read Back by Gerson Gonzalez MD to Dr Alma MD, and understanding confirmed on 11/05/2022 11:42:23 (ET). Electronically Signed: Gerson Gonzalez MD at 11:43 EDT , ADDENDUM: 11/05/22 1150 IMPRESSION: Normal unenhanced CT scan of the brain. N.B. : The above Results were Read Back by Gerson Gonzalez MD to Dr Alma MD, and understanding confirmed on 11/05/2022 11:42:23 (ET). Electronically Signed: Gerson Gonzalez MD at 11:43 EDT , Head/Neck CTA 11/05/22 11:28 IMPRESSION: Plaque formation at the origin of the right internal carotid artery causing between 50 and 69% stenosis. Calcific plaque at the origin of the left internal carotid artery causing approximately 50% narrowing. N.B. : The above Results were Read Back by Gerson Gonzalez MD to Dr Alma MD, and understanding confirmed on 11/05/2022 12:18:27 (ET). Electronically Signed: Gerson Gonzalez MD at 12:19 EDT , ADDENDUM: 11/05/22 1226 IMPRESSION: Plaque formation at the origin of the right internal carotid artery causing between 50 and 69% stenosis. Calcific plaque at the origin of the left internal carotid artery causing approximately 50% narrowing. N.B. : The above Results were Read Back by Gerson Gonzalez MD to Dr Alma MD, and understanding confirmed on 11/05/2022 12:18:27 (ET). Electronically Signed: Gerson Gonzalez MD at 12:19 EDT , Rhythm Strip Rhythm Strip: Sinus Rhythm Rate: 90 Ectopy: None EKG Initial EKG: Attestation: I personally reviewed and interpreted this EKG as follows: Interpretation: Sinus Rhythm and No Acute Injury Pattern Management Discussion w/another healthcare provider: Hospitalist, Barbed Wire Machine Operator (Stroke neurologist) and Radiologist Stroke Documentation Questions Stroke Team Activated: Yes Reviewed Inclusion/Exclusion criteria: Yes Was Patient considered for Endovascular Intervention?: No-CTA negative, determined not to be an endovascular candidate IV Thrombolytic Administered: Yes No contraindications from thrombolytic administration: Yes Risks, Benefits, Alternatives Discussed: Yes Critical Care Time Critical Care Time: Yes Critical care time (excluding procedures): 30-74 minutes (33 min), Including time spent:, Discussing w/Patient &/or Family/Building Maintenance Custodian, Discussing w/Consultants, Arranging Admission or Transfer and Performing Direct Patient Care at Bedside Discharge Plan Triage Chief Complaint: Stroke Alert ED Provider: Andrey Marquez Dx/Rx/DC Orders Clinical Impression: Acute ischemic right MCA stroke Prescriptions: No Action epinephrine 0.3 MG syringe 0.3 mg IM X1 fluticasone propionate 1 SPRAY spray,suspension 1 spray NASAL DAILY acetaminophen 500 MG tablet 500 - 1,000 mg PO Q6H PRN PRN (Reason: Pain Or Fever) Primary Care Provider: Kristine Daly MD Referrals: Care Physician,No Primary [Non-Staff] - Disposition Disposition: Acute Care [facility]
--- NOTE | 2022-11-05 11:33 | CM.ED ---
Social Work Note Referral Source: Stroke Alert Referral Reason: emotional support SW responded to stroke alert and introduced herself and role to patient's mother. Patient's mother was agreeable to speak with SW and reviewed recent events explaining patient noticed this morning being unable to lift her arm, fingers were numb as well as face numbing. SW provided emotional support and reviewed [facility] response to stroke alert including teleconference with [facility] neurology. SW remains available if additional needs arise. Kassi Mckeon MSW, DULCE MARIA
[2022-11-05] MEDS: 0.9% Saline Lock 10 ML Syringe IV ×2 (11:43→11:45)
[2022-11-05] MEDS: TENECTEPLASE 2,707.2 MG IV (11:44)
[2022-11-05 11:46] LABS: Bedside Glucose 118 mg/dL (74-106)
[2022-11-05] MEDS: 0.9% Normal Saline (1000mL) 1,000 ML 100 ML IV ×2 (11:46→21:12)
--- NOTE | 2022-11-05 12:08 | ED.RN ---
[facility] NEUROLOGIST CALLED BACK AT 1140. [facility]UR[facility] BEAMED IN AT 1141. PER [facility] NEUROLOGY AND AT BEDSIDE, OKAY TO GIVE IV TENECTEPLASE ORDERED. DAVID MITCHELLINSURANCE VERIFICATION REP AND THIS RN CONFIRMED DOSAGE, ALLERGIES, HOME MEDICATIONS, AND WEIGHT PRIOR TO ADMINISTRATION.
--- NOTE | 2022-11-05 12:18 | RAD_ITS ---
STUDY: X-RAY CHEST REASON FOR EXAM: Female, 62 years old. Neuro deficit, acute, stroke suspected TECHNIQUE: Single AP portable view of the chest. COMPARISON: Comparison is made with prior study of July 12, 2019. FINDINGS: EKG electrodes are seen. The lungs are clear and expanded. There is no demonstrated pleural abnormality. Normal size heart. Normal mediastinum and brandy. Normal visualized pulmonary arteries. There is atherosclerotic tortuosity of the aortic arch and descending thoracic aorta. There are degenerative changes of the visualized thoracic spine. Normal visualized ribs, clavicles, and shoulders. There is no demonstrated abnormality of the visualized soft tissue structures of the upper abdomen. RAD/Chest 1 View IMPRESSION: No acute abnormality is seen. Electronically Signed: Gerson Gonzalez MD at 12:55 EDT ,
[2022-11-05 12:29] LABS: International Normalized Ratio 0.9
[2022-11-05 12:30] LABS: Absolute Lymphocyte Count 2.55 X10^3/uL (0.83-4.51); Absolute Neutrophil Count 5.9 X10^3/uL (2.0-7.7); Basophil# 0.06 X10^3/uL; Basophil% 0.6 % (0-1); Eosinophil# 0.12 X10^3/uL; Eosinophils% 1.3 % (0-5); Hematocrit 49.3 % (37-47); Hemoglobin 15.2 g/dL (12.0-15.0); Lymphocyte # 2.55 X10^3/ul (0.83-4.51); Lymphocyte % 27.3 % (19-41); Mean Corp Hgb Conc 30.8 g/dL (32-36); Mean Corpuscular Hgb 27.3 pg (27.0-32.0); Mean Corpuscular Volume 88.7 fL (81-99); Mean Platelet Vol. 9.3 fl (6.2-12.0); Monocyte# 0.69 X10^3/uL; Monocyte% 7.4 % (0-10); NRBC Flagged by Analyzer 0 % (0-5); Neutrophil # 5.87 X10^3/uL (2.7-7.7); Neutrophil % 62.8 % (47-70); Platelet Count 409 K/mm3 (150-450); RBC Distribution Width SD 49.2 fl (35.1-43.9); Red Blood Count 5.56 M/mm3 (4.2-5.4); White Blood Count 9.4 K/mm3 (4.4-11.0)
[2022-11-05 12:31] LABS: Partial Thromboplast Time 27.4 Seconds (24.1-36.2)
[2022-11-05 12:41] LABS: Anion Gap 4 (5-15); BUN 12 mg/dL (7-18); BUN/Creat Ratio 14.4 RATIO (10-20); Calcium,Total 8.9 mg/dL (8.5-10.1); Chloride 107 mmol/L (98-107); Creatinine, Serum 0.84 mg/dL (0.55-1.02); EST Glomerular Filtration Rate 73 mL/min (>60); Est Glom Filt Rate - Afr Amer 89 mL/min (>60); Estimated Creatinine Clearance 59.96 ml/min; Glucose 113 mg/dL (74-106); Potassium 3.3 mmol/L (3.5-5.1); Sodium Level 140 mmol/L (136-145); Troponin-I HS 7 pg/mL (3.0-54.0)
--- NOTE | 2022-11-05 12:56 | HP.PCM.HOS_ITS ---
HPI - General General Date of Admission: 11/05/22 Date of Service: 11/05/22 Chief Complaint: Left arm weakness HPI Narrative PRADEEP JIMENEZ, is a 62 F with history of tobacco use who presented to [facility] 11/05/22 as a stroke alert. She had weakness and numbness to the L arm that started 15min [employer]. Additionally she felt dizzy, off balance, and had some sensory changes in LL face and LUE. She was seen by [facility] stroke team and they recommended TNK after evaluation. This was given in the ED and the hospitalist consulted for admission. Patient seen with family/friends at bedside, she reports that she resumed her usual health until she got out of the shower this morning and realized that she could not move her left arm at all and was having some numbness and tingling in her hand and left lower part of her face. She called a friend who brought her to the hospital 15 minutes after onset of symptoms, she arrived around 11 AM. NIH was 5 initially, it was evaluated and patient given TNK and symptoms began to improve. Presently she reports she feels like the feeling is beginning to come back in her hand and her strength is significantly better and she feels almost back to normal. Denies any other complaints [facility] Medical History (Updated 11/05/22 @ 13:[address] Elvia Mcdermott MD) No acute medical problems Medical History no medical history Home Medications acetaminophen 500 mg tablet 500 - 1,000 mg PO Q6H PRN PRN Pain Or Fever 07/13/19 [History Last Taken Unknown] epinephrine 0.3 mg/0.3 mL injection, auto-injector 0.3 mg IM X1 yellow jackets 07/13/19 [History Last Taken Unknown] fluticasone propionate 50 mcg/actuation nasal spray,suspension 1 spray NASAL DAILY allergies 07/13/19 [History Last Taken Unknown] Allergy/AdvReac Type Severity Reaction Status Date / Time insect venom [yellow jacket] Allergy Severe Anaphylaxis Verified 11/05/22 12:06 aspirin Allergy Shortness Verified 11/05/22 12:06 of breath clarithromycin [From Biaxin] Allergy Rash Verified 11/05/22 12:06 Environmental Allergies: Allergy Rash Verified 11/05/22 12:06 Uncoded zinc Allergy Rash Verified 11/05/22 12:06 Social History Smoking Status: Current every day smoker tobacco type: cigarettes ROS ROS Narrative General: Denies fever/chills HENT: Denies headache, denies stuffy nose, denies sore throat EYES: Denies changes in vision Resp: Denies cough, denies shortness of breath Cardiac: Denies chest pain GI: Denies abdominal pain, denies changes in bowel, denies nausea/vomiting : Denies changes in urination Extremity: Denies swelling MSK: Denies weakness Neuro: Feeling beginning to come back in her left arm, feels her strength is improved as well Heme: Denies any bleeding or bruising Skin: Denies rashes Psychiatric: No complaints voiced Vital Signs Vital Signs Vital Signs: 11/05/22 11:26 11/05/22 11:33 11/05/22 11:44 Temperature 97 F L 97 F L Temperature Source Temporal Temporal Pulse Rate 114 H 114 H Respiratory Rate 18 18 Blood Pressure 177/112 H 177/112 H 159/84 H Blood Pressure Mean 133 133 Blood Pressure Source Blood Pressure Position Blood Pressure Location Pulse Ox 91 91 Oxygen Delivery Method Room Air Room Air 11/05/22 11:58 11/05/22 11:59 11/05/22 11:59 Temperature Temperature Source Pulse Rate 84 91 Respiratory Rate 15 17 Blood Pressure 165/95 H 155/92 H Blood Pressure Mean 118 113 Blood Pressure Source Monitor Blood Pressure Position Semi-Fowlers Blood Pressure Location Left Arm Pulse Ox 95 98 94 Oxygen Delivery Method Room Air Room Air Room Air 11/05/22 12:03 11/05/22 12:14 11/05/22 11:44 Temperature 98.2 F Temperature Source Oral Pulse Rate 89 92 93 Respiratory Rate 15 17 15 Blood Pressure 155/92 H 167/87 H 159/84 H Blood Pressure Mean 113 113 109 Blood Pressure Source Monitor Monitor Blood Pressure Position Semi-Fowlers Semi-Fowlers Blood Pressure Location Left Arm Left Arm Pulse Ox 94 94 97 Oxygen Delivery Method Room Air Room Air Room Air 11/05/22 12:26 11/05/22 11:44 11/05/22 12:29 Temperature Temperature Source Pulse Rate 83 93 89 Respiratory Rate 17 15 18 Blood Pressure 165/91 H 159/84 H 147/86 H Blood Pressure Mean 115 109 106 Blood Pressure Source Monitor Blood Pressure Position Semi-Fowlers Blood Pressure Location Left Arm Pulse Ox 93 97 93 Oxygen Delivery Method Room Air Room Air Room Air 11/05/22 12:30 11/05/22 12:44 Temperature Temperature Source Pulse Rate 85 90 Respiratory Rate 22 H 18 Blood Pressure 147/86 H 159/70 H Blood Pressure Mean 106 99 Blood Pressure Source Monitor Blood Pressure Position Semi-Fowlers Blood Pressure Location Left Arm Pulse Ox 94 94 Oxygen Delivery Method Room Air Room Air Weight Weight: 75.387 kg Body Mass Index (BMI) 28.5 Physical Exam Narrative General: Alert, oriented, no apparent distress HEENT: Atraumatic, normocephalic Eyes: Anicteric, normal conjunctiva, extraocular movements intact, pupils equal Neck: Supple Respiratory: Clear to auscultation bilaterally, normal respiratory effort Cardiovascular: Regular rate and rhythm GI: Soft, nontender, nondistended Extremities: No edema Musculoskeletal: Strength 5 out of 5 in right upper extremity, 5 - out of 5 left upper extremity, 5 out of 5 right lower extremity, 5 out of 5 left lower extremity Neuro: No overt focal neurological deficits, cranial nerves II through XII intact, [id number] without significant difficulty bilaterally Skin: No rashes appreciated Psych: Cooperative Results Lab / Micro Data 11/05/22 11:32 11/05/22 11:32 Labs: Laboratory Results - last 24 hr 11/05/22 11:25: POC Glucose 118 H 11/05/22 11:32: WBC 9.4, RBC 5.56 H, Hgb 15.2 H, Hct 49.3 H, MCV 88.7, MCH 27.3, MCHC 30.8 L, RDW Std Deviation 49.2 H, RDW Coeff of Delilah 15.0 H, Plt Count 409, MPV 9.3, Immature Gran % (Auto) 0.600, Neut % (Auto) 62.8, Lymph % (Auto) 27.3, [place] % (Auto) 7.4, Eos % (Auto) 1.3, Baso % (Auto) 0.6, Absolute Neuts (auto) 5.9, Absolute Lymphs (auto) 2.55, Nucleated RBC % 0, Sodium 140, Potassium 3.3 L , Chloride 107, Carbon Dioxide 29.0, Anion Gap 4 L, BUN 12, Creatinine 0.84, Estim Creat Clear Calc 59.96, Est GFR (MDRD) Af Amer 89, Est GFR (MDRD) Non-Af 73, BUN/Creatinine Ratio 14.4, Glucose 113 H, Calcium 8.9, Troponin I High Sens 7 Rhythm Strip Rhythm Strip: Sinus Rhythm Rate: 90 Ectopy: None Radiology Impression Brain CT 11/05/22 11:28 IMPRESSION: Normal unenhanced CT scan of the brain. N.B. : The above Results were Read Back by Gerson Gonzalez MD to Dr Alma MD, and understanding confirmed on 11/05/2022 11:42:23 (ET). Electronically Signed: Gerson Gonzalez MD at 11:43 EDT , ADDENDUM: 11/05/22 1150 IMPRESSION: Normal unenhanced CT scan of the brain. N.B. : The above Results were Read Back by Gerson Gonzalez MD to Dr Alma MD, and understanding confirmed on 11/05/2022 11:42:23 (ET). Electronically Signed: Gerson Gonzalez MD at 11:43 EDT , Head/Neck CTA 11/05/22 11:28 IMPRESSION: Plaque formation at the origin of the right internal carotid artery causing between 50 and 69% stenosis. Calcific plaque at the origin of the left internal carotid artery causing approximately 50% narrowing. N.B. : The above Results were Read Back by Gerson Gonzalez MD to Dr Alma MD, and understanding confirmed on 11/05/2022 12:18:27 (ET). Electronically Signed: Gerson Gonzalez MD at 12:19 EDT , ADDENDUM: 11/05/22 1226 IMPRESSION: Plaque formation at the origin of the right internal carotid artery causing between 50 and 69% stenosis. Calcific plaque at the origin of the left internal carotid artery causing approximately 50% narrowing. N.B. : The above Results were Read Back by Gerson Gonzalez MD to Dr Alma MD, and understanding confirmed on 11/05/2022 12:18:27 (ET). Electronically Signed: Gerson Gonzalez MD at 12:19 EDT , Assessment & Plan Assessment/Plan (1) Symptoms of cerebrovascular accident (CVA): PLAN: Plan #CVA status post TNK -Symptoms almost completely resolved -CT prior to TNK within normal limits, patient with right internal carotid plaque between 50 and 69% and on the left internal roughly 50% with no acute stroke identified -Admit to ICU with strict blood pressure parameters -Neuro checks -Mcbride catheter placed, bed rest for 24 hours -Vital signs per TNK protocol -A.m. lipid panel and A1c -MRI ordered, will also need repeat CT at 24 hours prior to transfer to the floor -Echo ordered, PT/OT/speech #Tobacco use -Advise cessation Time spent in the patient's overall evaluation,decision-making process, review of diagnostic data, adjustment of management, discussion with other providers, nursing nursing and ancillary staff involved in patient's care documentation, 56 minutes nicotine replacement Charges/Coding Visit Charges Inpatient E&M: 50817 Init Hosp L2
--- NOTE | 2022-11-05 13:28 | ED.RN ---
THIS RN CALLED REPORT AT 1323 TO ICU. REPORT GIVEN TO OLIVER ECKERT.
--- NOTE | 2022-11-05 13:37 | ECHOCS_ITS ---
Reason For Study: TIA/CVA Procedure This was a 2D Doppler, Color Flow transthoracic echocardiogram. The study was technically difficult. Contrast injection was performed. Exam performed portable in ICU/CCU. Left Ventricle Normal size and thickness. The left ventricular ejection fraction is 65 %. Stage 1 diastolic dysfunction. Right Ventricle Normal right ventricle. Atria The left and right atria are normal. Bubble contrast study is negative for PFO/ASD. Mitral Valve The mitral valve is structurally normal. No prolapse or stenosis seen. Tricuspid Valve Trivial tricuspid valve insufficiency. Unable to estimate RV systolic pressure due to insufficient tricuspid regurgitant envelope. Aortic Valve Trisinus/trileaflet aortic valve. Pulmonic Valve The pulmonic valve is not well visualized. Great Vessels Normal sized aortic root. Pericardium/Pleural Trivial pericardial effusion. Anterior epicardial fat pad versus pericardial layered clot. Recommend cardiac CT/MRI for further evaluation. Medication Diluted definity 2ml given slow IV push to enhance endocardial definition. Performed a rapid injection of agitated mix of 9 cc saline and 1cc air to assess for atrial septal defect. MMode/2D Measurements & Calculations LVIDd: 4.2 cm IVSd: 1.0 cm Ao root diam: 3.0 cm LVIDs: 2.9 cm LVPWd: 1.2 cm LA dimension: 3.7 cm FS: 31.1 % LAV(MOD-bp): 47.6 ml LVAd ap4: 26.8 cm2 SV(MOD-sp4): 49.5 ml LAV(MOD-bp) Indexed: 26.4 ml/m2 LVLd ap4: 7.4 cm LAV(MOD-sp2): 57.2 ml EDV(MOD-sp4): 78.1 ml LAV(MOD-sp4): 39.3 ml EDV(sp4-el): 82.1 ml LVAs ap4: 14.5 cm2 LVLs ap4: 6.3 cm ESV(MOD-sp4): 28.7 ml ESV(sp4-el): 28.6 ml EF(MOD-sp4): 63.3 % EF(sp4-el): 65.1 % SV(sp4-el): 53.5 ml LA A4 area: 16.5 cm2 RA A4 area: 14.4 cm2 TAPSE: 1.7 cm Time Measurements MV dec time: 0.18 sec Doppler Measurements & Calculations MV E max maksim: 70.4 cm/sec Lat Peak E' Maksim: 8.5 cm/sec Med Peak E' Maksim: 8.2 cm/sec MV A max maksim: 88.1 cm/sec E/E' lat: 8.2 E/E' med: 8.6 MV E/A: 0.80 MV V2 max: 104.1 cm/sec MV P1/2t max maksim: 91.8 cm/sec Ao V2 max: 149.7 cm/sec MV max P.3 mmHg MV P1/2t: 66.7 msec Ao max P.0 mmHg MV V2 mean: 53.2 cm/sec Ao V2 mean: 99.2 cm/sec MV mean P.4 mmHg MV dec slope: 403.4 cm/sec2 Ao mean P.6 mmHg MV V2 VTI: 32.0 cm MVA(P1/2t): 3.3 cm2 Ao V2 VTI: 31.2 cm AV (velocity ratio): 0.77 LV V1 max: 125.0 cm/sec PA V2 max: 108.0 cm/sec LV V1 max P.2 mmHg PA V2 mean: 78.5 cm/sec LV V1 mean P.2 mmHg LV V1 mean: 84.2 cm/sec LV V1 VTI: 23.9 cm ECHO/Echo Complete W/ Contrast Interpretation Summary The left ventricular ejection fraction is 65 %. Stage 1 diastolic dysfunction. Anterior epicardial fat pad versus pericardial layered clot. Recommend cardiac CT/MRI for further evaluation. Ordering Physician: Elvia Mcdermott Performed By: Torey Bateman RCS
--- NOTE | 2022-11-05 14:18 | ED.RN ---
THIS RN COMPLETED NIH ASSESSMENT AT THE BEDSIDE WITH OLIVER ECKERT. PT A&OX3. DENIES ANY PAIN OR ADVERSE SYMPTOMS.
--- NOTE | 2022-11-05 15:29 | EX.PCM.CONCC ---
Assessment & Plan Assessment/Plan (1) Acute ischemic right MCA stroke: PLAN: Plan RECOMMENDATIONS: 1. Continue with post tenecteplase order set 2. As needed antihypertensives for now, possible baseline tomorrow 3. Consider neurology consult for aspirin recommendations 4. Potassium supplementation as ordered IMPRESSIONS: 1. Acute CVA status post tenecteplase Patient with findings consistent with a right MCA stroke. Patient has responded well to tenecteplase. Blood pressure is slightly elevated and as needed meds are ordered. SCDs will be added for DVT prophylaxis. Patient was able to pass bedside swallow evaluation, so oral potassium has been ordered for hypokalemia. Echocardiogram is currently pending. CT/MRI have been ordered for tomorrow. Patient is reporting a significant allergy to aspirin, but defer to neurology on alternative. If patient has resolution of symptoms by tomorrow, will likely sign off from a critical care perspective 2. Obesity/rare primary care/aspirin allergy/hyperglycemia Complicates care, management, review and prognosis. Patient does have a slightly elevated glucose, but hemoglobin A1c has been ordered for evaluation of diabetes. Patient does have some mild stenosis noted. Patient may require baseline medications after 24 hours for hypertension. HPI Consult Data Date of Consult: 11/05/22 HPI Narrative HPI Narrative: PRADEEP JIMENEZ is a 62 F, with past medical history listed below, who presents to [facility] 11/05/2022 secondary to acute onset of left upper extremity numbness and weakness about 15 minutes prior to arrival. Patient states that she felt dizzy and off-balance with some numbness of her face, left upper extremity, but no leg issues or headache. Patient did not have any change in vision. Patient reportedly had just gotten out of the shower when this was in onset. Patient reportedly does not take any prescription medications, but does smoke at baseline. Patient has had no previous complaints. Patient does admit to not following up with a doctor routinely. Patient has noted that her blood pressure can be high at times. In the ER, patient was hypertensive at 177/112, but saturating 91% on room air. Patient was afebrile and tachycardic to 114 bpm. Patient's initial NIH was 5 secondary to a facial palsy, paralysis of the left upper extremity and sensory deprivation. Patient received the stroke protocol and was noted to have white blood cell count of 9.4, hemoglobin of 15.2 and platelets of 409. Chemistries were relatively unremarkable except for potassium of 3.3 and a bicarbonate of 29. Glucose was slightly elevated at 113. CT of the head was unremarkable and a CTA showed some mild stenosis of the right internal carotid. Given patient's findings, tenecteplase was chosen. Patient received tenecteplase and NIH improved to 3 with significant improvement in left upper arm. On arrival to the intensive care unit, patient was doing well. Patient did have some slightly elevated blood pressures, but not enough to require treatment. Patient does state that she only takes a vitamin at baseline. Patient has known knowledge of any diabetes, A-fib or previous stroke. Patient does have a long smoking history, but has never been diagnosed with COPD or asthma. Patient's NIH has improved to 2 with points only for left upper extremity sensory and mild drift. Patient's facial droop has resolved. Review of systems otherwise negative from a constitutional, HEENT, respiratory, cardiovascular, GI, genitourinary, musculoskeletal, skin, neurologic, psychiatric and hematologic system unless stated above. [facility] Medical History No acute medical problems Medical History no medical history no medical history (Admits to rare doctor visits) Home Medications acetaminophen 500 mg tablet 500 - 1,000 mg PO Q6H PRN PRN Pain Or Fever 07/13/19 [History Last Taken Unknown] epinephrine 0.3 mg/0.3 mL injection, auto-injector 0.3 mg IM X1 yellow jackets 07/13/19 [History Last Taken Unknown] fluticasone propionate 50 mcg/actuation nasal spray,suspension 1 spray NASAL DAILY allergies 07/13/19 [History Last Taken Unknown] Allergy/AdvReac Type Severity Reaction Status Date / Time insect venom [yellow jacket] Allergy Severe Anaphylaxis Verified 11/05/22 12:06 aspirin Allergy Shortness Verified 11/05/22 12:06 of breath clarithromycin [From Biaxin] Allergy Rash Verified 11/05/22 12:06 Environmental Allergies: Allergy Rash Verified 11/05/22 12:06 Uncoded zinc Allergy Rash Verified 11/05/22 12:06 no significant family history no surgical history Social History Smoking Status: Current every day smoker tobacco type: cigarettes ROS ROS Narrative See HPI Physical Exam Const oriented x3 and no apparent distress General Appearance: Negative for in distress HEENT normocephalic and head/scalp atraumatic; Negative for moist oral mucous membranes Eyes PERRL, EOMs intact bilaterally and conjunctivae normal Neck full ROM Lymph Lymphatic: no lymphadenopathy noted Resp normal respiratory effort and no use of accessory muscles Effort and Inspection: able to speak in complete sentences Auscultation: clear to auscultation bilaterally; Negative for rales, rhonchi or wheezes Cardio regular rate, regular rhythm, S1 normal heart sound, S2 normal heart sound, no murmurs, no rub, no gallops and no JVD GI normal to inspection, nondistended, normoactive bowel sounds Narrative: Mild CVA tenderness noted Extremity no clubbing, cyanosis or edema Skin no rashes or lesions noted Neuro oriented x3 and CN's II-XII intact bilaterally Neuro Narrative: Slight decrease sensation and drift of left upper extremity Psych cooperative and affect normal Medical Records Data Attestation: I reviewed the patient's medical records Lab / Micro Data Attestation: I reviewed the patient's lab results. 11/05/22 11:32 11/05/22 11:32 Labs: Laboratory Results - last 24 hr 11/05/22 11:25: POC Glucose 118 H 11/05/22 11:32: WBC 9.4, RBC 5.56 H, Hgb 15.2 H, Hct 49.3 H, MCV 88.7, MCH 27.3, MCHC 30.8 L, RDW Std Deviation 49.2 H, RDW Coeff of Delilah 15.0 H, Plt Count 409, MPV 9.3, Immature Gran % (Auto) 0.600, Neut % (Auto) 62.8, Lymph % (Auto) 27.3, Burt % (Auto) 7.4, Eos % (Auto) 1.3, Baso % (Auto) 0.6, Absolute Neuts (auto) 5.9, Absolute Lymphs (auto) 2.55, Nucleated RBC % 0, PT 12.0, INR 0.9, APTT 27.4, Sodium 140, Potassium 3.3 L, Chloride 107, Carbon Dioxide 29.0, Anion Gap 4 L, BUN 12, Creatinine 0.84, Estim Creat Clear Calc 59.96, Est GFR (MDRD) Af Amer 89, Est GFR (MDRD) Non-Af 73, BUN/Creatinine Ratio 14.4, Glucose 113 H, Calcium 8.9, Troponin I High Sens 7 Rhythm Strip Rhythm Strip: Sinus Rhythm Rate: 94 Ectopy: None Radiology Impression Brain CT 11/05/22 11:28 IMPRESSION: Normal unenhanced CT scan of the brain. N.B. : The above Results were Read Back by Gerson Gonzalez MD to Dr Alma MD, and understanding confirmed on 11/05/2022 11:42:23 (ET). Electronically Signed: Gerson Gonzalez MD at 11:43 EDT , ADDENDUM: 11/05/22 1150 IMPRESSION: Normal unenhanced CT scan of the brain. N.B. : The above Results were Read Back by Gerson Gonzalez MD to Dr Alma MD, and understanding confirmed on 11/05/2022 11:42:23 (ET). Electronically Signed: Gerson Gonzalez MD at 11:43 EDT , Head/Neck CTA 11/05/22 11:28 IMPRESSION: Plaque formation at the origin of the right internal carotid artery causing between 50 and 69% stenosis. Calcific plaque at the origin of the left internal carotid artery causing approximately 50% narrowing. N.B. : The above Results were Read Back by Gerson Gonzalez MD to Dr Alma MD, and understanding confirmed on 11/05/2022 12:18:27 (ET). Electronically Signed: Gerson Gonzalez MD at 12:19 EDT , ADDENDUM: 11/05/22 1226 IMPRESSION: Plaque formation at the origin of the right internal carotid artery causing between 50 and 69% stenosis. Calcific plaque at the origin of the left internal carotid artery causing approximately 50% narrowing. N.B. : The above Results were Read Back by Gerson Gonzalez MD to Dr Alma MD, and understanding confirmed on 11/05/2022 12:18:27 (ET). Electronically Signed: Gerson Gonzalez MD at 12:19 EDT , Chest X-Ray 11/05/22 12:18 IMPRESSION: No acute abnormality is seen. Electronically Signed: Gerson Gonzalez MD at 12:55 EDT , Charges/Coding Visit Charges Inpatient E&M: 30550 Init Hosp L2
[2022-11-05] MEDS: Potassium Chloride Oral Tablet 20 MEQ PO (16:55)
[2022-11-05] MEDS: Atorvastatin Calcium 80 MG Tablet PO (21:12)
[2022-11-06] VITALS (24 sets, daily range): BP systolic 101–171; BP diastolic 48–86; PULSE 62–83; RESP 13–22; TEMP 36.6–36.9; O2SAT 90–95; BMI 31.1; BMI 31.4
[2022-11-06 04:33] LABS: Absolute Lymphocyte Count 2.14 X10^3/uL (0.83-4.51); Absolute Neutrophil Count 6.1 X10^3/uL (2.0-7.7); Basophil# 0.04 X10^3/uL; Basophil% 0.4 % (0-1); Eosinophil# 0.11 X10^3/uL; Eosinophils% 1.2 % (0-5); Hematocrit 43.8 % (37-47); Hemoglobin 13.6 g/dL (12.0-15.0); Lymphocyte # 2.14 X10^3/ul (0.83-4.51); Lymphocyte % 23.7 % (19-41); Mean Corp Hgb Conc 31.1 g/dL (32-36); Mean Corpuscular Hgb 27.3 pg (27.0-32.0); Mean Platelet Vol. 8.9 fl (6.2-12.0); Monocyte# 0.58 X10^3/uL; Monocyte% 6.4 % (0-10); NRBC Flagged by Analyzer 0 % (0-5); Neutrophil # 6.12 X10^3/uL (2.7-7.7); Platelet Count 299 K/mm3 (150-450); RBC Distribution Width CV 14.8 % (11.6-14.6); RBC Distribution Width SD 47.7 fl (35.1-43.9); Red Blood Count 4.98 M/mm3 (4.2-5.4)
[2022-11-06 05:10] LABS: Anion Gap 4 (5-15); BUN 9 mg/dL (7-18); BUN/Creat Ratio 14.4 RATIO (10-20); Calcium,Total 8.1 mg/dL (8.5-10.1); Chloride 110 mmol/L (98-107); Cholesterol 242 mg/dL (200); Creatinine, Serum 0.62 mg/dL (0.55-1.02); EST Glomerular Filtration Rate 103 mL/min (>60); Est Glom Filt Rate - Afr Amer 124 mL/min (>60); Estimated Creatinine Clearance 74.41 ml/min; Glucose 111 mg/dL (74-106); High Density Lipoprotein 48 mg/dL; Potassium 3.9 mmol/L (3.5-5.1); Sodium Level 140 mmol/L (136-145); Thyroid Stim Hormone (TSH) 1.59 uIU/mL (0.358-3.74); Triglycerides 97 mg/dL; Very Low Density Lipoprotein 19 mg/dL (5-40)
--- NOTE | 2022-11-06 06:56 | PCM.PN.INT ---
Assessment & Plan Assessment/Plan (1) Acute ischemic right MCA stroke: PLAN: Plan RECOMMENDATIONS: 1. Continue with post tenecteplase order set 2. Consider neuro consult for antiplatelet recommendations given aspirin issues 3. Outpatient complete PFT given decreased oxygen saturations 4. Potential therapy for diabetes pending hemoglobin A1c IMPRESSIONS: 1. Acute CVA status post tenecteplase Patient with findings consistent with a right MCA stroke. Patient has responded well to tenecteplase. Blood pressure is slightly elevated and as needed meds are ordered. SCDs will be added for DVT prophylaxis. Patient's neurologic symptoms have resolved. Patient should have an MRI today to see if there is any residual damage. Patient likely would benefit from a neuro consult as she is reporting an allergy to aspirin. Patient likely will require a high-dose statin. Given hemodynamic stability with resolution of neurologic symptoms, will sign off from a critical care perspective. Would be happy to see as an outpatient if pulmonary function tests are abnormal 2. Obesity/rare primary care/aspirin allergy/hyperglycemia Complicates care, management, review and prognosis. Patient does have a slightly elevated glucose, but hemoglobin A1c has been ordered for evaluation of diabetes. Patient does have some mild carotid stenosis noted. Patient may require baseline medications after 24 hours for hypertension and diabetes. Patient likely would benefit from a pulmonary function test as she has had marginal saturations overnight with a protracted smoking history. Did stress smoking cessation. Subjective Subjective Patient did well overnight. Patient has reported some mild left hand swelling, but neurologic symptoms have completely resolved. Nursing has reported marginal saturations overnight in the low 90s on room air. Objective Data Objective Data Vital Signs: Vital Signs Temp Pulse Resp BP Pulse Ox O2 Del Method 36.6 C 66 13 126/69 H 90 Room Air 11/06/22 04:00 11/06/22 06:00 11/06/22 06:00 11/06/22 06:00 11/06/22 06:00 11/06/22 06:00 Oxygen Delivery Method Room Air Weight: 78.1 kg Body Mass Index (BMI) 31.4 Intake & Output: Intake and Output for Last 24 Hours 11/04/22 11/05/22 11/06/22 23:59 23:59 23:59 Intake Total 1443.33 / 1443.33 Output Total 1100 / 1400 750 / 750 Balance 343.33 / 43.33 -750 / -750 Lab / Micro Data Attestation: I reviewed the patient's lab results. 11/06/22 04:15 11/06/22 04:15 Labs: Laboratory Results - last 24 hr 11/05/22 11:25: POC Glucose 118 H 11/05/22 11:32: WBC 9.4, RBC 5.56 H, Hgb 15.2 H, Hct 49.3 H, MCV 88.7, MCH 27.3, MCHC 30.8 L, RDW Std Deviation 49.2 H, RDW Coeff of Delilah 15.0 H, Plt Count 409, MPV 9.3, Immature Gran % (Auto) 0.600, Neut % (Auto) 62.8, Lymph % (Auto) 27.3, Hettinger % (Auto) 7.4, Eos % (Auto) 1.3, Baso % (Auto) 0.6, Absolute Neuts (auto) 5.9, Absolute Lymphs (auto) 2.55, Nucleated RBC % 0, PT 12.0, INR 0.9, APTT 27.4, Sodium 140, Potassium 3.3 L, Chloride 107, Carbon Dioxide 29.0, Anion Gap 4 L, BUN 12, Creatinine 0.84, Estim Creat Clear Calc 59.96, Est GFR (MDRD) Af Amer 89, Est GFR (MDRD) Non-Af 73, BUN/Creatinine Ratio 14.4, Glucose 113 H, Calcium 8.9, Troponin I High Sens 7 11/06/22 04:15: WBC 9.0, RBC 4.98, Hgb 13.6, Hct 43.8, MCV 88.0, MCH 27.3, MCHC 31.1 L, RDW Std Deviation 47.7 H, RDW Coeff of Delilah 14.8 H, Plt Count 299, MPV 8.9, Immature Gran % (Auto) 0.300, Neut % (Auto) 68.0, Lymph % (Auto) 23.7, Hettinger % (Auto) 6.4, Eos % (Auto) 1.2, Baso % (Auto) 0.4, Absolute Neuts (auto) 6.1, Absolute Lymphs (auto) 2.14, Nucleated RBC % 0, Sodium 140, Potassium 3.9, Chloride 110 H, Carbon Dioxide 26.0, Anion Gap 4 L, BUN 9, Creatinine 0.62, Estim Creat Clear Calc 74.41, Est GFR (MDRD) Af Amer 124, Est GFR (MDRD) Non-Af 103, BUN/Creatinine Ratio 14.4, Glucose 111 H, Calcium 8.1 L, Triglycerides 97, Cholesterol 242 H, LDL Cholesterol 175 H, VLDL Cholesterol 19, HDL Cholesterol 48, TSH 1.59 Radiography Diagnostic Testing: Radiology Impression Brain CT 11/05/22 11:28 IMPRESSION: Normal unenhanced CT scan of the brain. N.B. : The above Results were Read Back by Gerson Gonzalez MD to Dr Alma MD, and understanding confirmed on 11/05/2022 11:42:23 (ET). Electronically Signed: Gerson Gonzalez MD at 11:43 EDT , ADDENDUM: 11/05/22 1150 IMPRESSION: Normal unenhanced CT scan of the brain. N.B. : The above Results were Read Back by Gerson Gonzalez MD to Dr Alma MD, and understanding confirmed on 11/05/2022 11:42:23 (ET). Electronically Signed: Gerson Gonzalez MD at 11:43 EDT , Head/Neck CTA 11/05/22 11:28 IMPRESSION: Plaque formation at the origin of the right internal carotid artery causing between 50 and 69% stenosis. Calcific plaque at the origin of the left internal carotid artery causing approximately 50% narrowing. N.B. : The above Results were Read Back by Gesron Gonzalez MD to Dr Alma MD, and understanding confirmed on 11/05/2022 12:18:27 (ET). Electronically Signed: Gerson Gonzalez MD at 12:19 EDT , ADDENDUM: 11/05/22 1226 IMPRESSION: Plaque formation at the origin of the right internal carotid artery causing between 50 and 69% stenosis. Calcific plaque at the origin of the left internal carotid artery causing approximately 50% narrowing. N.B. : The above Results were Read Back by Gerson Gonzalez MD to Dr Alma MD, and understanding confirmed on 11/05/2022 12:18:27 (ET). Electronically Signed: Gerson Gonzalez MD at 12:19 EDT , Chest X-Ray 11/05/22 12:18 IMPRESSION: No acute abnormality is seen. Electronically Signed: Gerson Gonzalez MD at 12:55 EDT , Rhythm Strip Rhythm Strip: Sinus Rhythm Rate: 78 Ectopy: None Physical Exam Const oriented x3 and no apparent distress General Appearance: Negative for in distress HEENT normocephalic and head/scalp atraumatic; Negative for moist oral mucous membranes Eyes PERRL, EOMs intact bilaterally and conjunctivae normal Neck full ROM Lymph Lymphatic: no lymphadenopathy noted Resp normal respiratory effort and no use of accessory muscles Effort and Inspection: able to speak in complete sentences Auscultation: clear to auscultation bilaterally; Negative for rales, rhonchi or wheezes Cardio regular rate, regular rhythm, S1 normal heart sound, S2 normal heart sound, no murmurs, no rub, no gallops and no JVD GI normal to inspection, nondistended, normoactive bowel sounds Narrative: Mild CVA tenderness noted Extremity no clubbing, cyanosis or edema Skin no rashes or lesions noted Neuro oriented x3, CN's II-XII intact bilaterally, moves all extremities and no focal motor deficits Neuro Narrative: NIH 0 Psych cooperative and affect normal Charges/Coding Visit Charges Inpatient E&M: 41131 Subs Hosp L2
--- NOTE | 2022-11-06 07:04 | PN.HOSP_ITS ---
Reason for Visit Reason for Visit: Diagnoses Cerebral infarction due to unspecified occlusion or stenosis of right middle ce rebral artery (11/05/22) Other specified symptoms and signs involving the circulatory and respiratory systems (11/05/22) Subjective Subjective Feeling stronger today, feels her symptoms have almost resolved. Reported she f elt a little chest discomfort when she swallowed her atorvastatin that has since resolved and it was right after she ate so she is not sure if it was GERD or not. Objective Data Objective Data Vital Signs: Vital Signs Temp Pulse Resp BP Pulse Ox O2 Del Method 97.8 F 66 13 126/69 H 90 Room Air 11/06/22 04:00 11/06/22 06:00 11/06/22 06:00 11/06/22 06:00 11/06/22 06:00 11/06/22 06:00 Oxygen Delivery Method Room Air Weight: 78.1 kg Body Mass Index (BMI) 31.4 Intake & Output: Intake and Output for Last 24 Hours 11/04/22 11/05/22 11/06/22 23:59 23:59 23:59 Intake Total 1443.33 / 1443.33 Output Total 1100 / 1400 750 / 750 Balance 343.33 / 43.33 -750 / -750 Lab / Micro Data 11/06/22 04:15 11/06/22 04:15 Labs: Laboratory Results - last 24 hr 11/05/22 11:25: POC Glucose 118 H 11/05/22 11:32: WBC 9.4, RBC 5.56 H, Hgb 15.2 H, Hct 49.3 H, MCV 88.7, MCH 27.3, MCHC 30.8 L, RDW Std Deviation 49.2 H, RDW Coeff of Delilah 15.0 H, Plt Count 409, MPV 9.3, Immature Gran % (Auto) 0.600, Neut % (Auto) 62.8, Lymph % (Auto) 27.3, [place] % (Auto) 7.4, Eos % (Auto) 1.3, Baso % (Auto) 0.6, Absolute Neuts (auto) 5.9, Absolute Lymphs (auto) 2.55, Nucleated RBC % 0, PT 12.0, INR 0.9, APTT 27.4, Sodium 140, Potassium 3.3 L, Chloride 107, Carbon Dioxide 29.0, Anion Gap 4 L, BUN 12, Creatinine 0.84, Estim Creat Clear Calc 59.96, Est GFR (MDRD) Af Amer 89, Est GFR (MDRD) Non-Af 73, BUN/Creatinine Ratio 14.4, Glucose 113 H, Calcium 8.9, Troponin I High Sens 7 11/06/22 04:15: WBC 9.0, RBC 4.98, Hgb 13.6, Hct 43.8, MCV 88.0, MCH 27.3, MCHC 31.1 L, RDW Std Deviation 47.7 H, RDW Coeff of Delilah 14.8 H, Plt Count 299, MPV 8.9, Immature Gran % (Auto) 0.300, Neut % (Auto) 68.0, Lymph % (Auto) 23.7, [place] % (Auto) 6.4, Eos % (Auto) 1.2, Baso % (Auto) 0.4, Absolute Neuts (auto) 6.1, Absolute Lymphs (auto) 2.14, Nucleated RBC % 0, Sodium 140, Potassium 3.9, Chloride 110 H, Carbon Dioxide 26.0, Anion Gap 4 L, BUN 9, Creatinine 0.62, Estim Creat Clear Calc 74.41, Est GFR (MDRD) Af Amer 124, Est GFR (MDRD) Non-Af 103, BUN/Creatinine Ratio 14.4, Glucose 111 H, Calcium 8.1 L, Triglycerides 97, Cholesterol 242 H, LDL Cholesterol 175 H, VLDL Cholesterol 19, HDL Cholesterol 48, TSH 1.59 Radiography Diagnostic Testing: Radiology Impression Brain CT 11/05/22 11:28 IMPRESSION: Normal unenhanced CT scan of the brain. N.B. : The above Results were Read Back by Gerson Gonzalez MD to Dr Alma MD, and understanding confirmed on 11/05/2022 11:42:23 (ET). Electronically Signed: Gerson Gonzalez MD at 11:43 EDT , ADDENDUM: 11/05/22 1150 IMPRESSION: Normal unenhanced CT scan of the brain. N.B. : The above Results were Read Back by Gerson Gonzalez MD to Dr Alma MD, and understanding confirmed on 11/05/2022 11:42:23 (ET). Electronically Signed: Gerson Gonzalez MD at 11:43 EDT , Head/Neck CTA 11/05/22 11:28 IMPRESSION: Plaque formation at the origin of the right internal carotid artery causing between 50 and 69% stenosis. Calcific plaque at the origin of the left internal carotid artery causing approximately 50% narrowing. N.B. : The above Results were Read Back by Gerson Gonzalez MD to Dr Alma MD, and understanding confirmed on 11/05/2022 12:18:27 (ET). Electronically Signed: Gerson Gonzalez MD at 12:19 EDT , ADDENDUM: 11/05/22 1226 IMPRESSION: Plaque formation at the origin of the right internal carotid artery causing between 50 and 69% stenosis. Calcific plaque at the origin of the left internal carotid artery causing approximately 50% narrowing. N.B. : The above Results were Read Back by Gerson Gonzalez MD to Dr Alma MD, and understanding confirmed on 11/05/2022 12:18:27 (ET). Electronically Signed: Gerson Gonzalez MD at 12:19 EDT , Chest X-Ray 11/05/22 12:18 IMPRESSION: No acute abnormality is seen. Electronically Signed: Gerson Gonzalez MD at 12:55 EDT , Rhythm Strip Rhythm Strip: Sinus Rhythm Rate: 78 Ectopy: None Physical Exam Narrative General: Alert, oriented, no apparent distress HEENT: Atraumatic, normocephalic Eyes: Anicteric, normal conjunctiva, extraocular movements intact, pupils equal Neck: Supple Respiratory: Clear to auscultation bilaterally, normal respiratory effort Cardiovascular: Regular rate and rhythm GI: Soft, nontender, nondistended Extremities: No edema Musculoskeletal: Strength 5 out of 5 in right upper extremity, 5 - out of 5 left upper extremity, 5 out of 5 right lower extremity, 5 out of 5 left lower extremity Neuro: No overt focal neurological deficits, cranial nerves II through XII intac t, [id number] without significant difficulty bilaterally Skin: No rashes appreciated Psych: Cooperative Assessment & Plan Assessment/Plan (1) Symptoms of cerebrovascular accident (CVA): PLAN: Plan #CVA status post TNK -Symptoms almost completely resolved -CT prior to TNK within normal limits, patient with right internal carotid plaque between 50 and 69% and on the left internal roughly 50% with no acute stroke identified -Admit to ICU with strict blood pressure parameters -Neuro checks -Mcbride catheter placed, bed rest for 24 hours -Vital signs per TNK protocol -A.m. lipid panel and A1c -MRI ordered, will also need repeat CT at 24 hours prior to transfer to the floor -Echo ordered, PT/OT/speech -11/05: Pending, will consult neuro after transfer to floor for antiplatelet recommendations given reported intolerance to aspirin which will likely be later today #Prediabetes -A1c 6.1 -Strongly recommend lifestyle management #Tobacco use -Advise cessation -11/05: Outpatient PFTs due to decreased O2 Time spent in the patient's overall evaluation,decision-making process, review of diagnostic data, adjustment of management, discussion with other providers, nursing nursing and ancillary staff involved in patient's care documentation, 36 minutes nicotine replacement Charges/Coding Visit Charges Inpatient E&M: 32726 Subs Hosp L2
[2022-11-06 08:35] LABS: Hemoglobin A1c 6.1 % (3.8-5.6)
[2022-11-06] MEDS: Pantoprazole Sodium 40 MG Tablet PO (09:28)
--- NOTE | 2022-11-06 10:15 | CASEMGMT ---
Social Work PHQ-9 completed, assessment does not indicate signs of depression. SHON Kitchen
[2022-11-06] MEDS: LORazepam 0.5 MG Tablet PO (10:48)
--- NOTE | 2022-11-06 11:30 | MRI_ITS ---
We are attempting to reach an attending provider to discuss findings. An addendum with communication details will be sent when the communication is complete. STUDY: MRI BRAIN WITHOUT CONTRAST REASON FOR EXAM: Female, 62 years old. CVA -- MRI 24 hours after IV thrombolytic administration TECHNIQUE: Standardized multiplanar fat and water weighted pulse sequences were obtained. COMPARISON: Head CT dated November 05, 2022 FINDINGS: There are multiple cortical acute infarcts clustered at the superior/apex region of the right frontal and parietal lobes and one single acute cortical infarct in the right external capsule region of the right parietal lobe seen on image 18/56 series 4. Normal size of the ventricles and extra-axial spaces for the patient''s age. There are a limited number of small white matter hyperintensities, distributed throughout the deep white matter tracts of the cerebral hemispheres, consistent with mild chronic white matter ischemic changes. Normal bilateral basal ganglia. Normal thalami. There is no extra-axial fluid accumulation. Normal flow voids within the major intracranial circulation suggesting patency by spin echo criteria. Normal sella turcica, pituitary gland, infundibular stalk, optic chiasm and hypothalamus. Normal tectal plate and pineal gland. Normal midbrain, sawyer and medulla. Normal cerebellum. Normal basal cisterns. Normal bilateral temporal bones. Normal bilateral internal auditory canals. No demonstrated orbital abnormality, within the constraints of a routine brain study. Normal visualized paranasal sinuses. Normal calvarium and skull base. Normal visualized soft tissue structures. Normal visualized upper cervical spine. MRI/Brain without Contrast IMPRESSION: 1. There are multiple cortical acute infarcts clustered at the superior/apex region of the right frontal and parietal lobes and one single acute cortical infarct in the right external capsule region of the right parietal lobe seen on image 18/56 series 4. Electronically Signed: Maldonado Dorman MD at 12:31 EDT ,
--- NOTE | 2022-11-06 12:00 | CASEMGMT ---
RN CM Face to Face with patient for initial transition planning/care coordination assessment. RN CM introduced self and role at [facility]. Patient lying in bed, alert and oriented. Patient willing to participate in assessment and is able to answer all questions appropriately. Care providers, pharmacy, and demographics verified. Patient wishes to discharge home, denies need for home health at this time. Patient states she has no further needs or concerns at this time. CM to follow for discharge planning needs that may arise. PCP: Malika Specialists: none Preferred Pharmacy: [facility] Insurance: MMO Prescription Benefit: yes Living Will/HPOA: none LNOK: mother, sister Living Arrangements: Patient lives with mother and sister in a single story home with 2 steps to enter. Patient states she is independent at home. Transportation: self, sister, mother DME/HHC: Patient states she has shower chair, cane, walker, wheelchair, grab bars, and knee scooter at home. No previous HHC or SNF Disposition Plan: Patient to discharge home with family support and follow-up plans in place. Will monitor progress with therapy. Anita ROSA, RN, CM
[2022-11-06] MEDS: Atorvastatin Calcium 80 MG Tablet PO (21:04)
[2022-11-07] VITALS (14 sets, daily range): BP systolic 117–173; BP diastolic 63–98; PULSE 60–82; RESP 16–20; TEMP 36.1–37.2; O2SAT 91–98; BMI 31.1
--- NOTE | 2022-11-07 02:52 | NURSING ---
SOC called for consult related to antiplatelet recommendation. Pt sleeping at this time. SOC will call back in the morning [phone] for consult.
[2022-11-07 05:35] LABS: Absolute Neutrophil Count 6.1 X10^3/uL (2.0-7.7); Basophil# 0.05 X10^3/uL; Basophil% 0.6 % (0-1); Eosinophils% 1.2 % (0-5); Hematocrit 43.9 % (37-47); Hemoglobin 13.7 g/dL (12.0-15.0); Mean Corp Hgb Conc 31.2 g/dL (32-36); Mean Corpuscular Hgb 27.2 pg (27.0-32.0); Mean Corpuscular Volume 87.3 fL (81-99); Mean Platelet Vol. 9.1 fl (6.2-12.0); Monocyte# 0.54 X10^3/uL; Monocyte% 6.3 % (0-10); NRBC Flagged by Analyzer 0 % (0-5); Neutrophil # 6.06 X10^3/uL (2.7-7.7); Neutrophil % 70.7 % (47-70); Platelet Count 297 K/mm3 (150-450); RBC Distribution Width CV 14.9 % (11.6-14.6); Red Blood Count 5.03 M/mm3 (4.2-5.4); White Blood Count 8.6 K/mm3 (4.4-11.0)
[2022-11-07 05:51] LABS: Anion Gap 4 (5-15); BUN 9 mg/dL (7-18); Calcium,Total 8.4 mg/dL (8.5-10.1); Chloride 109 mmol/L (98-107); Creatinine, Serum 0.64 mg/dL (0.55-1.02); EST Glomerular Filtration Rate 99 mL/min (>60); Est Glom Filt Rate - Afr Amer 120 mL/min (>60); Estimated Creatinine Clearance 72.08 ml/min; Glucose 111 mg/dL (74-106); Potassium 3.7 mmol/L (3.5-5.1); Sodium Level 140 mmol/L (136-145)
--- NOTE | 2022-11-07 07:01 | PCM.PN.HOSP ---
Reason for Visit Reason for Visit: Diagnoses Cerebral infarction due to unspecified occlusion or stenosis of right middle cerebral artery (11/05/22) Other specified symptoms and signs involving the circulatory and respiratory systems (11/05/22) Subjective Subjective Patient still with slight residual weakness but overall feels much better Objective Data Objective Data Vital Signs: Vital Signs Temp Pulse Resp BP Pulse Ox O2 Del Method 97.8 F 62 16 129/68 H 92 Room Air 11/07/22 06:00 11/07/22 06:00 11/07/22 06:00 11/07/22 06:00 11/07/22 06:00 11/07/22 06:00 Oxygen Delivery Method Room Air Weight: 77.4 kg Body Mass Index (BMI) 31.1 Intake & Output: Intake and Output for Last 24 Hours 11/05/22 11/06/22 11/07/22 23:59 23:59 23:59 Intake Total 1443.33 / 1443.33 2080 / 2080 200 / 200 Output Total 1100 / 1400 2000 Balance 343.33 / 43.33 79 / 79 200 / 200 Lab / Micro Data 11/07/22 05:15 11/07/22 05:15 Labs: Laboratory Results - last 24 hr 11/06/22 04:31: Hemoglobin A1c 6.1 H 11/07/22 05:15: WBC 8.6, RBC 5.03, Hgb 13.7, Hct 43.9, MCV 87.3, MCH 27.2, MCHC 31.2 L, RDW Std Deviation 48.0 H, RDW Coeff of Delilah 14.9 H, Plt Count 297, MPV 9.1, Immature Gran % (Auto) 0.200, Neut % (Auto) 70.7 H, Lymph % (Auto) 21.0, [place] % (Auto) 6.3, Eos % (Auto) 1.2, Baso % (Auto) 0.6, Absolute Neuts (auto) 6.1, Absolute Lymphs (auto) 1.80, Nucleated RBC % 0, Sodium 140, Potassium 3.7, Chloride 109 H, Carbon Dioxide 27.0, Anion Gap 4 L, BUN 9, Creatinine 0.64, Estim Creat Clear Calc 72.08, Est GFR (MDRD) Af Amer 120, Est GFR (MDRD) Non-Af 99, BUN/Creatinine Ratio 14.0, Glucose 111 H, Calcium 8.4 L Radiography Diagnostic Testing: Radiology Impression Echocardiogram 11/05/22 13:37 Interpretation Summary The left ventricular ejection fraction is 65 %. Stage 1 diastolic dysfunction. Anterior epicardial fat pad versus pericardial layered clot. Recommend cardiac CT/MRI for further evaluation. Ordering Physician: Elvia Mcdermott Performed By: Torey Bateman RCS Brain MRI 11/06/22 11:30 IMPRESSION: 1. There are multiple cortical acute infarcts clustered at the superior/apex region of the right frontal and parietal lobes and one single acute cortical infarct in the right external capsule region of the right parietal lobe seen on image 18/56 series 4. Electronically Signed: Maldonado Dorman MD at 12:31 EDT , ADDENDUM: 11/06/22 1250 IMPRESSION: 1. There are multiple cortical acute infarcts clustered at the superior/apex region of the right frontal and parietal lobes and one single acute cortical infarct in the right external capsule region of the right parietal lobe seen on image 18/56 series 4. N.B. : Felicia Vasquez RN, confirmed on 11/06/2022 12:44:06 (ET) that the referring physician received the results and does not require a verbal communication. Electronically Signed: Maldonado Dorman MD at 12:31 EDT , Rhythm Strip Rhythm Strip: Sinus Rhythm Rate: 78 Ectopy: None Physical Exam Narrative General: Alert, oriented, no apparent distress HEENT: Atraumatic, normocephalic Eyes: Anicteric, normal conjunctiva, extraocular movements intact, pupils equal Neck: Supple Respiratory: Clear to auscultation bilaterally, normal respiratory effort Cardiovascular: Regular rate and rhythm GI: Soft, nontender, nondistended Extremities: No edema Musculoskeletal: Strength 5 out of 5 in right upper extremity, 5 - out of 5 left upper extremity, 5 out of 5 right lower extremity, 5 out of 5 left lower extremity Neuro: No overt focal neurological deficits, cranial nerves II through XII intact Skin: No rashes appreciated Psych: Cooperative Assessment & Plan Assessment/Plan (1) Symptoms of cerebrovascular accident (CVA): PLAN: Plan #CVA status post TNK -Symptoms almost completely resolved -CT prior to TNK within normal limits, patient with right internal carotid plaque between 50 and 69% and on the left internal roughly 50% with no acute stroke identified -Admit to ICU with strict blood pressure parameters -Neuro checks -Mcbride catheter placed, bed rest for 24 hours -Vital signs per TNK protocol -A.m. lipid panel and A1c -MRI ordered, will also need repeat CT at 24 hours prior to transfer to the floor -Echo ordered, PT/OT/speech -11/06: Pending, will consult neuro after transfer to floor for antiplatelet recommendations given reported intolerance to aspirin which will likely be later today -11/07: MRI with multiple right hemispheric strokes concerning for embolic phenomenon, echocardiogram queried. Buccal fat pad versus pericardial layering clot, do not have the ability to do inpatient cardiac MRI or cardiac CT, discussed with coatings inspector who said that this was a nonemergent finding that could be further evaluated on outpatient basis. Neuro has been consulted however for further recommendations on antiplatelet/anticoagulation given her multiple strokes and her aspirin allergy #Prediabetes -A1c 6.1 -Strongly recommend lifestyle management #Tobacco use -Advise cessation -11/06: Outpatient PFTs due to decreased O2 Time spent in the patient's overall evaluation,decision-making process, review of diagnostic data, adjustment of management, discussion with other providers, nursing nursing and ancillary staff involved in patient's care documentation, 36 minutes nicotine replacement Charges/Coding Visit Charges Inpatient E&M: 47317 Subs Hosp L2
[2022-11-07] MEDS: Pantoprazole Sodium 40 MG Tablet PO (09:31)
--- NOTE | 2022-11-07 19:26 | PCM.HOSP.N ---
Hospitalist Note Spoke w/ neuro, they recommended life long plavix and vascular consult d/t multiple right sided strokes and R sided carotid plaque, orders placed
[2022-11-07] MEDS: Atorvastatin Calcium 80 MG Tablet PO (22:43)
[2022-11-07] MEDS: Clopidogrel Bisulfate 75 MG Tablet PO (22:43)
[2022-11-08 03:26] VITALS: BMI 29.7
[2022-11-08 03:30] VITALS: BP 144/67; PULSE 62; RESP 16; TEMP 36.5; O2SAT 95
[2022-11-08 07:08] LABS: Absolute Lymphocyte Count 1.58 X10^3/uL (0.83-4.51); Basophil# 0.04 X10^3/uL; Basophil% 0.5 % (0-1); Eosinophil# 0.08 X10^3/uL; Hematocrit 44.8 % (37-47); Hemoglobin 14.1 g/dL (12.0-15.0); Lymphocyte # 1.58 X10^3/ul (0.83-4.51); Lymphocyte % 19.2 % (19-41); Mean Corp Hgb Conc 31.5 g/dL (32-36); Mean Corpuscular Hgb 27.6 pg (27.0-32.0); Mean Corpuscular Volume 87.7 fL (81-99); Mean Platelet Vol. 9.1 fl (6.2-12.0); Monocyte# 0.56 X10^3/uL; Monocyte% 6.8 % (0-10); NRBC Flagged by Analyzer 0 % (0-5); Neutrophil # 5.96 X10^3/uL (2.7-7.7); Neutrophil % 72.3 % (47-70); Platelet Count 313 K/mm3 (150-450); RBC Distribution Width CV 14.7 % (11.6-14.6); RBC Distribution Width SD 47.6 fl (35.1-43.9); Red Blood Count 5.11 M/mm3 (4.2-5.4); White Blood Count 8.2 K/mm3 (4.4-11.0)
[2022-11-08 07:15] VITALS: BP 139/72; PULSE 65; RESP 15; TEMP 36.6; O2SAT 95
[2022-11-08 07:24] LABS: Anion Gap 4 (5-15); BUN 11 mg/dL (7-18); BUN/Creat Ratio 16.1 RATIO (10-20); Calcium,Total 8.7 mg/dL (8.5-10.1); Chloride 107 mmol/L (98-107); Creatinine, Serum 0.68 mg/dL (0.55-1.02); EST Glomerular Filtration Rate 93 mL/min (>60); Est Glom Filt Rate - Afr Amer 112 mL/min (>60); Estimated Creatinine Clearance 67.84 ml/min; Glucose 105 mg/dL (74-106); Potassium 3.7 mmol/L (3.5-5.1); Sodium Level 139 mmol/L (136-145)
[2022-11-08 07:42] VITALS: O2SAT 95
[2022-11-08] MEDS: Clopidogrel Bisulfate 75 MG Tablet PO (09:39)
[2022-11-08] MEDS: Pantoprazole Sodium 40 MG Tablet PO (09:39)
[2022-11-08 11:15] VITALS: BP 130/72; PULSE 74; RESP 14; TEMP 36.7; O2SAT 94
--- NOTE | 2022-11-08 11:29 | CDU_ITS ---
Reason For Study: Carotid Stenosis Rt. Velocities/BP Lt. Velocities/BP Prox CCA 96/19 cm/sec. Prox CCA 80/15 cm/sec. Mid CCA 80/20 cm/sec. Mid CCA 83/19 cm/sec. Dist CCA 69/16 cm/sec. Dist CCA 69/19 cm/sec. Prox ICA 36/12 cm/sec. Prox ICA 79/19 cm/sec. Mid ICA 90/28 cm/sec. Mid ICA 58/17 cm/sec. Dist ICA 84/29 cm/sec. Dist ICA 65/23 cm/sec. Rt. ICA/CCA = 1.1. Lt. ICA/CCA = 1.0. Prox ECA 134/16 cm/sec. Prox ECA 131/5 cm/sec. Rt. Vert. 44/13 cm/sec. Lt. Vert. 68/16 cm/sec. Right Extracranial There is heterogeneous, smooth atherosclerotic plaque noted in the right common carotid artery. There is heterogeneous, irregular atherosclerotic plaque noted in the right internal carotid artery. There is heterogeneous, smooth atherosclerotic plaque noted in the right external carotid artery. Antegrade flow is noted in the right vertebral artery. Left Extracranial There is heterogeneous, irregular atherosclerotic plaque noted in the left common carotid artery. There is heterogeneous, irregular atherosclerotic plaque noted in the left internal carotid artery. There is intimal thickening but no significant atherosclerotic plaque noted in the left external carotid artery. Antegrade flow is noted in the left vertebral artery. Procedure Carotid Duplex [id number]. This is a Carotid Duplex examination using B-mode, color flow and specral Doppler. Exam performed portable in patient room. VL/Carotid Duplex Ultrasound Interpretation Summary Mild (<50%) stenosis right extracranial internal carotid. Mild (<50%) stenosis left extracranial internal carotid. Patent and antegrade vertebrals bilaterally. Ordering Physician: Francisco Javier Valentine Performed By: Earlene Ivan, RDCS, RVT
--- NOTE | 2022-11-08 11:48 | EX.PCM.CON.S ---
Assessment & Plan Assessment/Plan (1) Carotid stenosis, symptomatic, with infarction: PLAN: -given poor CT quality will obtain duplex to confirm significant enough stenosis to be considered cause of CVA -if duplex does not reveal stenosis may repeat CTA -will start scheduling process for potential CEA, either this week while admitted or next week as outpatient HPI Consult Data Date of Consult: 11/08/22 HPI Narrative HPI Narrative: PRADEEP JIMENEZ, is a 62 F who presents with left upper extremity weakness/numbness, left facial numbness. Presented to ED quickly after symptom onset and received lytics; her symptoms resolved. MRI revealed multi-focal right hemispheric acute infarcts. CTA revealed right carotid stenosis, though contrast timing was poor. [facility] Medical History No acute medical problems Medical History no medical history Home Medications acetaminophen 500 mg tablet 500 - 1,000 mg PO Q6H PRN PRN Pain Or Fever 07/13/19 [History Last Taken Unknown] epinephrine 0.3 mg/0.3 mL injection, auto-injector 0.3 mg IM X1 yellow jackets 07/13/19 [History Last Taken Unknown] fluticasone propionate 50 mcg/actuation nasal spray,suspension 1 spray NASAL DAILY allergies 07/13/19 [History Last Taken Unknown] Allergy/AdvReac Type Severity Reaction Status Date / Time insect venom [yellow jacket] Allergy Severe Anaphylaxis Verified 11/05/22 12:06 aspirin Allergy Shortness Verified 11/05/22 12:06 of breath clarithromycin [From Biaxin] Allergy Rash Verified 11/05/22 12:06 Environmental Allergies: Allergy Rash Verified 11/05/22 12:06 Uncoded zinc Allergy Rash Verified 11/05/22 12:06 Family History no significant family his Surgical History no surgical history Social History Smoking Status: Current every day smoker tobacco type: cigarettes ROS Constitutional Constitutional: Denies chills, fever(s), frequent falls, lethargy or weakness Eyes Eyes: Denies blind spots, change in vision or loss of vision ENT HEENT: Denies bleeding gums, hoarseness or sore throat Cardiovascular Cardiovascular: Reports numbness in extremities and weakness in extremities; Denies abdominal pain, bluish discoloration of hand/feet, chest pain with activity, claudication, cold extremities, cyanosis, dyspnea on exertion, erythema on extremities, irregular heart rhythm, leg edema or leg ulcers Respiratory/Chest Respiratory/Chest: Denies cough, excessive phlegm production, shortness of breath at rest, shortness of breath with exertion or wheezing Gastrointestinal Gastrointestinal: Denies anorexia, change in stool character, constipation, diarrhea, melena or rectal bleeding Genitourinary Genitourinary: Denies dysuria or hematuria Musculoskeletal Musculoskeletal: Denies abnormal gait Integumentary Integumentary: Reports other Details: ; Denies erythema, non-healing lesions or wounds Neurologic Neurologic: Reports focal weakness, numbness and sensory deficit; Denies abnormal speech, headache(s), loss of vision or paresthesias Hematologic/Lymphatic Hematologic/Lymphatic: Denies easy bleeding, easy bruising or lymphadenopathy Physical Exam Const alert, oriented x3, no apparent distress and healthy appearing General Appearance: cooperative; Negative for combative or lethargic Orientation / Consciousness: awake Exam Limitations: no limitations HEENT Head and Scalp: normocephalic and atraumatic Eyes EOMs intact bilaterally General Eye: normal appearance of both eyes Neck full ROM and thyroid normal General: trachea midline Thyroid: thyroid normal Resp normal respiratory effort and no use of accessory muscles Effort and Inspection: Negative for labored, stridor or audible wheezes Cardio regular rate and regular rhythm Back/Spine Cervical Spine: cervical ROM normal Extremity full ROM, normal capillary refill and no clubbing, cyanosis or edema Skin no rashes or lesions noted and no wounds Neuro oriented x3, CN's II-XII intact bilaterally, no focal motor deficits and no sensory deficits noted Psych thought process normal, cooperative, affect normal, speech normal and activity/motor behavior normal Lab / Micro Data 11/08/22 06:36 11/08/22 06:36 Labs: Laboratory Results - last 24 hr 11/08/22 06:36: WBC 8.2, RBC 5.11, Hgb 14.1, Hct 44.8, MCV 87.7, MCH 27.6, MCHC 31.5 L, RDW Std Deviation 47.6 H, RDW Coeff of Delilah 14.7 H, Plt Count 313, MPV 9.1, Immature Gran % (Auto) 0.200, Neut % (Auto) 72.3 H, Lymph % (Auto) 19.2, [place] % (Auto) 6.8, Eos % (Auto) 1.0, Baso % (Auto) 0.5, Absolute Neuts (auto) 6.0, Absolute Lymphs (auto) 1.58, Nucleated RBC % 0, Sodium 139, Potassium 3.7, Chloride 107, Carbon Dioxide 28.0, Anion Gap 4 L, BUN 11, Creatinine 0.68, Estim Creat Clear Calc 67.84, Est GFR (MDRD) Af Amer 112, Est GFR (MDRD) Non-Af 93, BUN/Creatinine Ratio 16.1, Glucose 105, Calcium 8.7 Rhythm Strip Rhythm Strip: Sinus Rhythm Rate: 78 Ectopy: None Charges/Coding Visit Charges Inpatient E&M: 84963 Init Hosp L3
--- NOTE | 2022-11-08 12:20 | CT_ITS ---
STUDY: CTA NECK WITH CONTRAST REASON FOR EXAM: Female, 62 years old. carotid stenosis. Comparison is made with prior study November 05, 2022. RADIATION DOSAGE (If Supplied By Facility): CTDIvol = ( 20.52 ) mGy, DLP = ( 512.76 ) mGycm TECHNIQUE: CT angiography with multi-detector data acquisition was performed from the aortic arch to the skull base following intravenous administration of IV 100mL Isovue-370. MIP images were reconstructed from the axial data set. Post-processing of the angiographic images was performed, with multiplanar reformation and 3D reconstruction. Individualized dose optimization techniques were used for this CT. COMPARISON: None. FINDINGS: AORTIC ARCH: There is atherosclerotic calcific plaque formation of the aortic arch and great vessels arising from the aortic arch, without a hemodynamically significant stenosis. There is a normal origin of the brachiocephalic, left common carotid, and left subclavian arteries. Atherosclerotic plaque formation at the origin of the left common carotid artery and left subclavian artery. RIGHT CAROTID ARTERIES: Normal right common carotid artery (CCA). Normal right common carotid bulb. There is mild atherosclerotic plaque formation of the origin of the right internal carotid artery with less than 50% cross sectional diameter stenosis. Normal visualized cervical portion of the right internal carotid artery. Normal origin of the right external carotid artery (ECA). LEFT CAROTID ARTERIES: Normal left common carotid artery (CCA). Normal left common carotid bulb. There is mild atherosclerotic plaque formation of the origin of the left internal carotid artery with less than 50% cross sectional diameter stenosis. Normal visualized cervical portion of the left internal carotid artery. Normal origin of the left external carotid artery (ECA). VERTEBRAL ARTERIES: Normal bilateral vertebral arteries. CT/CTA Neck W/WO Contrast IMPRESSION: Calcific plaque formation at the origin of the right and left internal carotid arteries causing less than 50% luminal stenosis. Electronically Signed: Gerson Gonzalez MD at 14:23 EDT ,
--- NOTE | 2022-11-08 14:05 | DCINST_ITS ---
Discharge Instructions Diet Discharge Diet: Low fat / Low cholesterol Activity Discharge Activity: Return to Normal Activity Weight Bearing Status: Weight bearing as tolerated Dressing / Incision Call your doctor if you observe: Fever of 101 or Higher, Shortness of breath, Dizziness, Swelling in the ankles and Chest pain Follow Up Care Test Results: Test results from this visit will be discussed in further detail at your follow- up appointment, if applicable. Discharge Plan Admission Admit Date/Time: 11/05/22 12:56 Primary Reason for Your Visit: acute CVA Attending Provider: Ptai Quinones Primary Care Provider: Kristine Daly MD Consulting Providers: Juan Sumner; Jeremy Logan; Antonio Lugo; Michelet Rutherford; Tam Peters; Rianna Sales METAL NUMERICAL TOOL PROGRAMMER; Elvia Mcdermott; Francisco Javier Valentine Instructions Patient Instructions: Booklet - Understanding Stroke Discharge Orders/Prescriptions Prescriptions: New atorvastatin 80 mg Tablet 80 mg PO QHS Qty: 30 2RF clopidogrel 75 mg Tablet 75 mg PO DAILY Qty: 30 2RF Continued epinephrine 0.3 MG syringe 0.3 mg IM X1 fluticasone propionate 1 SPRAY spray,suspension 1 spray NASAL DAILY acetaminophen 500 MG tablet 500 - 1,000 mg PO Q6H PRN PRN (Reason: Pain Or Fever) Referrals / Follow Up: Kristine Daly MD [Other] - Within 2 Weeks Francisco Javier Valentine MD [Med Staff - Active Staff] - Within 2 Weeks Azael Cavanaugh MD [Non-Staff -Ordering Privileges] - Within 2 Weeks (see to establish care for neurology. ) Care Physician,No Primary [Non-Staff] - Disposition Disposition (needs filled in before D/C Order can be placed): Home, Self Care
--- NOTE | 2022-11-08 14:06 | DS.PCM_ITS ---
Providers Date of Admission: 11/05/22 Date of Discharge: 11/08/22 Primary Care Physician: Kristine Phillip MD, [place] Consultations 11/05/22 11:29 Consult: Public Health Specialist / Pulmonary Medicine Routine Consulting Provider: Pulmonary Medicine alyssa [place] Reason for Consult: stroke for thrombolytic administration EMERGENT Consult: Yes MD Notified: Yes Date Notified: 11/05/22 Time Notified: 11:29 Method of Notification: Verbal Comments:: Consult may be done in ED or ICU 11/08/22 05:55 Consult: Vascular Surgery AM (NON MEDS) Consulting Provider: Francisco Javier Valentine Reason for Consult: R sided carotid plaque w/ mult R hemispheric strokes- neuro rec vasc c/s EMERGENT Consult: No Notified: Yes Date Notified: 11/08/22 Time Notified: 07:41 Method of Notification: Text 11/08/22 08:13 Consult: Vascular Surgery Routine Consulting Provider: Francisco Javier Valentine Reason for Consult: embolic stroke, concern for right carotid stenosis EMERGENT Consult: No Notified: Yes Date Notified: 11/08/22 Time Notified: 08:13 Method of Notification: Text Reason For Visit: STROKE S/P TNK Diagnosis Discharge Diagnosis (1) Carotid stenosis, symptomatic, with infarction: Status: Acute Code(s): I63.239 - Cerebral infarction due to unspecified occlusion or stenosis of unspecified carotid artery Medications at Discharge Home Medications acetaminophen 500 mg tablet 500 - 1,000 mg PO Q6H PRN PRN Pain Or Fever 07/13/19 epinephrine 0.3 mg/0.3 mL injection, auto-injector 0.3 mg IM X1 yellow jackets 07/13/19 fluticasone propionate 50 mcg/actuation nasal spray,suspension 1 spray NASAL DAILY allergies 07/13/19 atorvastatin 80 mg tablet 80 mg PO QHS #30 tabs 11/08/22 clopidogrel 75 mg tablet 75 mg PO DAILY #30 tabs 11/08/22 Hospital Course Operations None Procedures 2-D Echocardiogram Summary of Care Provided Minutes Spent on Discharge: 45 Hospital Course: Patient is a 62 y/o female with a PMH as outlined including nicotine dependence who was admitted via the ED on 11/05/2022 with a complaint of weakness and numbness to the left arm that started about 15 minutes prior to arrival. She had associated dizziness, and felt off balance, and also had some sensory changes to the left side of her face and LUE. [facility] reviewed patient and TNK was recommended. She received TNK and she was admitted and managed for probable stroke. Her symptoms started improving afterwards and subsequently resolved. CT of the brain showed no acute intracranial pathology. CTA of the brain showed right internal carotid plaque between 50-69% and on the left internal carotid artery, roughly 50% with no acute stroke identified. She was initially admitted to the ICU. MRI of the brain showed multiple cortical acute infarcts clustered at the superior/apex region of the right frontal and parietal lobes and one single acute cortical infarct in the right external capsule region of the right parietal lobe. [facility] neurology was consulted and reviewed patient, and recommended patient be on lifelong plavix and high intensity statin. Patient was allergic to aspirin, so she wasnt placed on aspirin. She had 2D echo which showed LVEF of 65% and stage 1 diastolic dysfunction, as well as anterior epicardial fat pad vs pericardial layered clot, nad cardiac CT/MRI was recommended for further evaluation. HOspitalist seeing patient then discussed with hydroelectric plant electrical engineer who felt that this was a nonemergent finding and could be further evaluated on outpatient basis. NEurology reviewed echo and felt it was an incidental finding and was unrelated to the stroke. Vascular surgery was consulted, and requested for a carotid USG showed mild <50% right and left extracranial internal carotid arteries. She remained stable and was discharged home on 11/08/2022. She is to follow up with her PCP and was referred to neurology on outpatient basis. She is to follow up with vascular surgery within one week. Patient seen and examined. She had no complaints and had an uneventful night. Review of systems is otherwise negative. Labs and vitals reviewed. HOme meds reviewed and reconciled. Physical Exam Const alert, oriented x3 and no apparent distress General Appearance: cooperative, comfortable and well kempt Orientation / Consciousness: awake Exam Limitations: no limitations and altered mental status HEENT normocephalic, head/scalp atraumatic, hearing grossly normal bilaterally and moist oral mucous membranes Mouth: oral and palatal mucosa normal Eyes PERRL, EOMs intact bilaterally and conjunctivae normal Resp normal respiratory effort, no retractions, no use of accessory muscles and clear to auscultation bilaterally Cardio regular rate, regular rhythm, S1 normal heart sound, S2 normal heart sound and no murmurs GI normal to inspection, nondistended, normoactive bowel sounds, soft to palpation, non-tender and non-distended Extremity normal to inspection, full ROM and no clubbing, cyanosis or edema Skin no rashes or lesions noted Neuro oriented x3, CN's II-XII intact bilaterally, moves all extremities and no focal motor deficits Sensorium / Orientation: awake and alert Motor Exam: strength 5/5 throughout Psych affect normal Weight / BMI Weight Weight: 170 lb 10.205 oz Body Mass Index (BMI) 29.7 ABG / Lab / Microbiology Data 11/08/22 06:36 11/08/22 06:36 Laboratory: Laboratory Results - last 24 hr 11/08/22 06:36: WBC 8.2, RBC 5.11, Hgb 14.1, Hct 44.8, MCV 87.7, MCH 27.6, MCHC 31.5 L, RDW Std Deviation 47.6 H, RDW Coeff of Delilah 14.7 H, Plt Count 313, MPV 9.1, Immature Gran % (Auto) 0.200, Neut % (Auto) 72.3 H, Lymph % (Auto) 19.2, Wilcox % (Auto) 6.8, Eos % (Auto) 1.0, Baso % (Auto) 0.5, Absolute Neuts (auto) 6.0, Absolute Lymphs (auto) 1.58, Nucleated RBC % 0, Sodium 139, Potassium 3.7, Chloride 107, Carbon Dioxide 28.0, Anion Gap 4 L, BUN 11, Creatinine 0.68, Estim Creat Clear Calc 67.84, Est GFR (MDRD) Af Amer 112, Est GFR (MDRD) Non-Af 93, BUN/Creatinine Ratio 16.1, Glucose 105, Calcium 8.7 D/C Instructions Discharge Diet: Low fat / Low cholesterol Discharge Activity: Return to Normal Activity Weight Bearing Status: Weight bearing as tolerated Call your doctor if you observe: Fever of 101 or Higher, Shortness of breath, Dizziness, Swelling in the ankles and Chest pain Meaningful Use Info Meaningful Use Diagnoses (Choose all that apply): None applicable Discharge Plan Admission Admit Date/Time: 11/05/22 12:56 Primary Reason for Your Visit: acute CVA Attending Provider: Pati Quinones Primary Care Provider: Kristine Daly MD Consulting Providers: Juan Sumner; Jeremy Logan; Antonio Lugo; Michelet Rutherford; Tam Peters; Rianna Sales PROP SETTER; Elvia Mcdermott; Francisco Javier Valentine Instructions Patient Instructions: Booklet - Understanding Stroke Discharge Orders/Prescriptions Prescriptions: New atorvastatin 80 mg Tablet 80 mg PO QHS Qty: 30 2RF clopidogrel 75 mg Tablet 75 mg PO DAILY Qty: 30 2RF Continued epinephrine 0.3 MG syringe 0.3 mg IM X1 fluticasone propionate 1 SPRAY spray,suspension 1 spray NASAL DAILY acetaminophen 500 MG tablet 500 - 1,000 mg PO Q6H PRN PRN (Reason: Pain Or Fever) Referrals / Follow Up: Kristine Daly MD [Other] - Within 2 Weeks Francisco Javier Valentine MD [Med Staff - Active Staff] - Within 2 Weeks Azael Cavanaugh MD [Non-Staff -Ordering Privileges] - Within 2 Weeks (see to establish care for neurology. ) Care Physician,No Primary [Non-Staff] - Disposition Disposition (needs filled in before D/C Order can be placed): Home, Self Care Charges/Coding Visit Charges Inpatient E&M: 23097 Disch Hosp >30min
--- NOTE | 2022-11-08 14:28 | CHAPLAIN ---
Type of Pastoral Visit _x__ Initial Visit ___ Follow-up Visit ___ On-call Visit ___ General Patient Visit ___ Spiritual Assessment ___ Family Conference ___ Bereavement ___ Rapid Response ___ Code Blue ___ Other (describe below) Pastoral Care Referral From _x__ Patient ___ Family ___ Nurse ___ Physician ___ Input Output Clerk ___ Office Support Clerk ___ Other (describe below) Sacrament/Intervention _x__ Active listening ___ Anointing ___ Yarsani ___ Bereavement ___ Communion _x__ Molly exploration ___ ___ Life review _x__ Prayer ___ Reconciliation ___ Sacrament of Sick ___ Supportive presence ___ Wedding ___ Other (describe below) Pastoral Comments patient has had good news and good results in her care; pt is very expressive about thanks to God and for medical help; pt speaks of her spiritual insights to this stage builder and reports a new sense of the larger picture of life; pt welcomes prayer of thanks and presence
--- NOTE | 2022-11-08 14:59 | PHA.DC.MC.R ---
Pharmacy [facility] has performed discharge medication reconciliation and counseling for this patient. The patient's discharge medication list was reviewed for discrepancies and discrepancies were resolved. The patient was counseled on the following discharge medications and changes in medications for homegoing were reviewed. The Reason for Use, instructions for use, and potential side effects were reviewed for all new medications. The patient's questions regarding all of their medications were answered. 1. Atorvastatin 80 mg PO QHS 2. Clopidogrel 75 mg PO daily The patient was able to verbally demonstrate an understanding of their discharge medications. Medications at Discharge Home Medications acetaminophen 500 mg tablet 500 - 1,000 mg PO Q6H PRN PRN Pain Or Fever 07/13/19 epinephrine 0.3 mg/0.3 mL injection, auto-injector 0.3 mg IM X1 yellow jackets 07/13/19 fluticasone propionate 50 mcg/actuation nasal spray,suspension 1 spray NASAL DAILY allergies 07/13/19 atorvastatin 80 mg tablet 80 mg PO QHS #30 tabs 11/08/22 clopidogrel 75 mg tablet 75 mg PO DAILY #30 tabs 11/08/22
--- NOTE | 2022-11-08 15:13 | CASEMGMT ---
OLIVER GARCIA Follow-up: This RN CM met with pt at bedside. Noted PT and OT notes reflect pt to be back to baseline and not needing further therapy. Pt states she plans to return home at discharge and denies any discharge needs at this time. Pt states she has the support of her mom and other family if needed. Plan: Return home with support of family. Merly Colon RN CM
[2022-11-08 17:01] VITALS: BP 153/98; PULSE 78; RESP 17; TEMP 36.6; O2SAT 97
[2022-11-08 17:13] VITALS: BMI 29.7
== END 2022-11-08 17:30 | disposition home or self-care (01) | DRG 66 ==
LOC: ED 12:49 → ICU 13:09 → PCU 11-07 11:02
PROVIDERS: Admitting Provider Internal Medicine; Emergency Provider Emergency Medicine; Visit Provider Student in an Organized Health Care Education/Training Program
DX: I63.511 Cerebral infarction due to unspecified occlusion or stenosis of right middle cerebral artery (principal); E11.65 Type 2 diabetes mellitus with hyperglycemia; I10 Essential (primary) hypertension; I65.23 Occlusion and stenosis of bilateral carotid arteries; F17.210 Nicotine dependence, cigarettes, uncomplicated; E87.6 Hypokalemia; G51.0 Bell's palsy; E66.9 Obesity, unspecified; Z68.29 Body mass index [BMI] 29.0-29.9, adult
CPT/HCPCS: 36415; 51702; 70450; 70496; 70498; 70551; 71045; 80048; 80061; 82962; 83036; 84443; 84484; 85025; 85610; 85730; 92610; 93005; 93306; 93880; 97165; 97802; 99285; J3101; J7030; Q9957; Q9967; A4216; C8929

== ENCOUNTER → 2023-04-12 | Outpatient (CLI) | payer OTHER, SELFPAY ==
[2023-04-12 12:41] LABS: Erythrocyte Sedimentation Rate 51 mm/hr (0-30)
[2023-04-12 13:14] LABS: ALB/GLOB Ratio 0.8 RATIO (0.9-2.4); AST(SGOT) 16 U/L (15-37); Alanine Aminotransfer ALT/SGPT 26 U/L (13-56); Albumin, Serum 3.3 g/dL (3.2-5.0); Alkaline Phosphatase 121 U/L (45-117); Anion Gap 8 (5-15); BUN 8 mg/dL (7-18); BUN/Creat Ratio 11.6 RATIO (10-20); Calcium,Total 8.8 mg/dL (8.5-10.1); Chloride 108 mmol/L (98-107); Cholesterol 174 mg/dL (200); Creatinine, Serum 0.69 mg/dL (0.55-1.02); EST Glomerular Filtration Rate 92 mL/min (>60); Est Glom Filt Rate - Afr Amer 111 mL/min (>60); Globulin 4.2 g/dL (2.2-4.2); Glucose 111 mg/dL (74-106); High Density Lipoprotein 52 mg/dL; Potassium 4.1 mmol/L (3.5-5.1); Protein, Total 7.5 g/dL (6.4-8.2); Sodium Level 142 mmol/L (136-145); Thyroid Stim Hormone (TSH) 1.61 uIU/mL (0.358-3.74); Triglycerides 118 mg/dL; Very Low Density Lipoprotein 24 mg/dL (5-40)
[2023-04-12 13:20] LABS: Vitamin B12 177 pg/mL (211-911)
[2023-04-12 14:35] LABS: Hemoglobin A1c 6.2 % (3.8-5.6)
[2023-04-13 14:10] LABS: ANTINUCLEAR ANTIBODIES DIRECT Negative (Negative)
[2023-04-21 10:09] LABS: Anti-Cardiolipin Ab, IgA, Qn < 9 APL U/mL (0-11); Anti-Cardiolipin Ab, IgG, Qn < 9 GPL U/mL (0-14); Anti-Cardiolipin Ab, IgM, Qn < 9 MPL U/mL (0-12); Anti-Thrombin 3 AG, Immunol 116 % (72-124); Antithrombin 3 Function 116 % (75-135); Complement C3 155 mg/dL (82-167); Complement CH50 > 60 U/mL (>41); Dilute Prothrombin Time (dPT) 37.6 sec (0.0-47.6); Dilute Russell Viper Venom 36.5 sec (0.0-47.0); Free Kappa Light Chains 31.3 mg/L (3.3-19.4); Free Lambda Light Chains 20.8 mg/L (5.7-26.3); Interpretation Comment: (.); PTT-LA 38.2 sec (0.0-43.5); Protein C Antigen 170 % (60-150); Protein C, Functional 151 % (73-180); Protein S, Free 92 % (61-136); Protein S, Funtional 82 % (63-140); Protein S, Total 85 % (60-150); Thrombin Time 16.5 sec (0.0-23.0); Vitamin B1, Thiamine 147.2 nmol/L (66.5-200.0); dPT Confirm Ratio 1.22 Ratio (0.00-1.34)
== END | disposition home or self-care (01) ==
LOC: MTLAB 09:14
PROVIDERS: Referring Provider Psychiatry & Neurology Neurology; Visit Provider Psychiatry & Neurology Neurology
DX: I63.9 Cerebral infarction, unspecified (principal); E78.00 Pure hypercholesterolemia, unspecified; G62.9 Polyneuropathy, unspecified; R73.09 Other abnormal glucose
CPT/HCPCS: 36415; 80053; 80061; 81240; 81241; 82607; 82746; 83036; 83883; 84425; 84443; 85300; 85301; 85302; 85303; 85305; 85306; 85652; 86038; 86147; 86160; 86162; 86225; 86235

== ENCOUNTER → 2023-04-19 | Outpatient (CLI) | payer OTHER, SELFPAY ==
--- OUTSIDE RECORDS SUMMARY | 2023-04-19 20:26 | XMS RPT_ITS | CCD ---
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 Name Role Phone Talya BUTLER, Naomi Phillip Primary Care Provider AQUILES EDMONDSON Attending Unavailabl e TALYANAOMI Abbasi Primary Care Unavailable TALYANAOMI Abbasi Attending Unavailable TALYARENANNAOMI Kenji Primary Care Unavailable TALYARENANNAOMI Kenji Attending Unavailable TALYA, NAOMI L Primary Care Unavailable TALYAGISELLENAOMI L Primary Care Unavailable Allergies Allergy Classification Reported Allergen(s) Allergy Type Date of Onset Reaction(s) Facility (13 sources) Aspirin; Translations: [ASPIRIN] Drug Allergy 11-16-2002 [facility] Work Phone: (13 sources) Clarithromycin; Translations: [CLARITHROMYCIN] Drug Allergy 12-17-2005 Rash [facility] Work Phone: (13 sources) Tomatoes; Translations: [TOMATOES] Food Allergy 04-11-2012 Shortness of Breath [facility] Work Phone: Medications Current Medications Medication Drug Class(es) Dates Sig (Normalized) Sig (Original) amoxicillin 875 mg oral tablet (2 sources) Penicillin-class Antibacterial Start: 09-30-2022 End: 10-10-2022 take 1 tablet by mouth twice daily amoxicillin (AMOXIL) 875 mg tablet Indications: Toothache Take 1 tablet by mouth twice daily for 10 days. 20 tablet 0 09/30/2022 10/10/2022 Active Completed/Discontinued Medications Medication Drug Class(es) Dates Sig (Normalized) Sig (Original) [id number] 0.3 ml EPINEPHrine 1 mg/ml auto-injector (12 sources) alpha-Adrenergic Agonist, beta-Adrenergic Agonist, Catecholamine Start: 05-08-2019 End: 10-05-2022 EPINEPHrine (EPIPEN) 0.3 mg/0.3 mL auto-injector Indications: Food allergy Inject 0.3 mL intramuscularly as needed. 1 Each 0 10/05/2022 Active Problems Active Problems Problem Classification Problem Date Documented Date Episodic/Chronic Acute cerebrovascular disease (4 sources) Cerebrovascular accident; Translations: [Cerebral infarction, unspecified] Onset: 01-06-2023 11-17-2022 Chronic Diabetes mellitus without complication (1 source) Impaired fasting glycemia; Translations: [Impaired fasting glucose] 11-23-2022 Episodic Disorders of lipid metabolism (15 sources) Hyperlipidemia; Translations: [Hyperlipidemia, unspecified] Onset: 05-03-2016 05-03-2016 Chronic Disorders of teeth and jaw (1 source) Toothache; Translations: [Other specified disorders of teeth and supporting structures] 09-30-2022 Episodic Other circulatory disease (12 sources) Elevated blood-pressure reading without diagnosis of hypertension; Translations: [Elevated blood-pressure reading, without diagnosis of hypertension] Onset: 05-03-2016 05-03-2016 Episodic Other connective tissue disease (1 source) Other symptoms and signs involving the musculoskeletal system; Translations: [Other musculoskeletal symptoms referable to limbs] 11-17-2022 Episodic Other screening for suspected conditions (not mental disorders or infectious disease) (5 sources) Patient encounter status; Translations: [Encounter for screening mammogram for malignant neoplasm of breast] Onset: 01-06-2023 Episodic Residual codes; unclassified (1 source) History of ankle surgery; Translations: [Other specified postprocedural states] Episodic Residual codes; unclassified (1 source) Tobacco user; Translations: [Tobacco use] 12-13-2022 Episodic Substance-related disorders (13 sources) Tobacco user; Translations: [Nicotine dependence, unspecified, uncomplicated] Onset: 11-16-2002 06-03-2003 Chronic Past or Other Problems Problem Classification Problem Date Documented Da te Episodic/Chronic Allergic reactions (12 sources) Allergy to yellow jacket venom; Translations: [Bee allergy status] Onset: 11-12-2014 11-12-2014 Episodic Other circulatory disease (1 source) Elevated blood-pressure reading, without diagnosis of hypertension; Translations: [Elevated blood pressure reading without diagnosis of hypertension] Onset: 05-03-2016 Episodic Results Test Name Value Interpretation Reference Range Facil ity Vital Signs Date Time Vital Sign Value Performing Clinician Ana Paula ruiz 01-06-2023 10:25-0500 Body height 157.5 cm Aquiles Edmondson MD Work Phone: [facility] 01-06-2023 10:25-0500 Body weight 72.58 kg Aquiles Edmondson MD Work Phone: [facility] 01-06-2023 10:25-0500 Diastolic blood pressure 95 mm[Hg] Aquiles Edmondson MD Work Phone: [facility] 01-06-2023 10:25-0500 Heart rate 76 /min Aquiles Edmondson MD Work Phone: [facility] 01-06-2023 10:25-0500 Respiratory rate 18 /min Aquiles Edmondson MD Work Phone: [facility] 01-06-2023 10:25-0500 SaO2% (BldA) [Mass fraction] 95 % Aquiles Edmondson MD Work Phone: [facility] 01-06-2023 10:25-0500 Systolic blood pressure 166 mm[Hg] Aquiles Edmondson MD Work Phone: [facility] 12-06-2022 14:38-0400 Body weight 73.94 kg Naomi Babin MD Work Phone: [facility] 12-06-2022 14:38-0400 Diastolic blood pressure 86 mm[Hg] Naomi Babin MD Work Phone: [facility] 12-06-2022 14:38-0400 Heart rate 82 /min Naomi Babin MD Work Phone: [facility] 12-06-2022 14:38-0400 SaO2% (BldA) [Mass fraction] 98 % Naomi Babin MD Work Phone: [facility] 12-06-2022 14:38-0400 Systolic blood pressure 138 mm[Hg] Naomi Babin MD Work Phone: [facility] 11-17-2022 12:38-0400 Diastolic blood pressure 82 mm[Hg] Naomi Babin MD Work Phone: [facility] 11-17-2022 12:38-0400 Systolic blood pressure 127 mm[Hg] Naomi Babin MD Work Phone: [facility] 11-17-2022 11:40-0400 Body weight 74.39 kg Naomi Babin MD Work Phone: [facility] 11-17-2022 11:40-0400 Heart rate 79 /min Naomi Babin MD Work Phone: [facility] 11-17-2022 11:40-0400 SaO2% (BldA) [Mass fraction] 96 % Naomi Babin MD Work Phone: [facility] 09-30-2022 12:32-0400 Body temperature 98.29 [degF] Clemente Levar FUSING LINE INSPECTOR.DISTRICT BRANCH MANAGER Work Phone: [facility] 09-30-2022 12:32-0400 Body weight 75.03 kg Clemente Levar FUSING LINE INSPECTOR.DISTRICT BRANCH MANAGER Work Phone: [facility] 09-30-2022 12:32-0400 Diastolic blood pressure 88 mm[Hg] Clemente Levar FUSING LINE INSPECTOR.DISTRICT BRANCH MANAGER Work Phone: [facility] 09-30-2022 12:32-0400 Heart rate 98 /min Clemente Levar FUSING LINE INSPECTOR.DISTRICT BRANCH MANAGER Work Phone: [facility] 09-30-2022 12:32-0400 Respiratory rate 21 /min Clemente Levar FUSING LINE INSPECTOR.DISTRICT BRANCH MANAGER Work Phone: [facility] 09-30-2022 12:32-0400 SaO2% (BldA) [Mass fraction] 95 % Clemente Levar FUSING LINE INSPECTOR.DISTRICT BRANCH MANAGER Work Phone: [facility] 09-30-2022 12:32-0400 Systolic blood pressure 150 mm[Hg] Clemente Cristobal APRNZeeDISTRICT BRANCH MANAGER Work Phone: [facility] Encounters Encounter Date Encounter Type Care Provider Facility Start: 01-06-2023 End: 01-06-2023 ambulatory AQUILES EDMONDSON Facility:[facility] Start: 01-06-2023 End: 01-06-2023 Patient encounter procedure Aquiles Edmondson MD Work Phone: [facility] Procedures Date Procedure Procedure Detail Performing Clinician Start: 01-06-2023 Ecg routine ecg w/le ast 12 lds w/i&r Aquiles Edmondson MD Work Phone: Start: 05-18-2016 Lipid 1996 panel - S armida or Plasma Naomi Babin MD Work Phone: Start: 05-03-2016 Adult depression screening assessment Naomi Babin MD Work Phone: Plan of Treatment Date Care Activity Detail Author Start: 11-27-2024 Urine microalbumin profile [facility] Start: 11-17-2022 End: 01-17-2023 Comprehensive metabolic 2000 panel - Serum or Plasma COMP METABOLIC PANEL Lab Routine Mixed hyperlipidemia Expected: 11/17/2022, Expires: 01/17/2023 [facility] Work Phone: Immunizations Immunization Date Immunization Notes Care Provider Fa ciligabrielle 05-03-2016 influenza virus vacc ine, unspecified formulation Naomi Babin MD Work Phone: [facility] 11-27-2014 pneumococcal polysaccharide vaccine, 23 valent Naomi Babin MD Work Phone: [facility] 11-27-2014 tetanus toxoid, redu jerson diphtheria toxoid, and acellular pertussis vaccine, adsorbed Naomi Babin MD Work Phone: [facility] Payers Date Payer Category Payer Unknown MMO MMO [employer] [id number] 2018-Present [phone] [address] [place] [address] PPO [id number] 2018 Unknown MMO MMO [employer] PPO [id number] 2018-Present [phone] [address] [place] [address] PPO [id number] 2018 Unknown [id number] Social History Date Type Detail Facility Start: 03-31-2012 Tobacco smoking stat [facility] Smokes tobacco daily [facility] History of tobacco use Cigarette Smoker C [facility] Start: 08-15-2019 End: 01-06-2023 Alcohol intake Current drinker of alcohol (finding) [facility] Start: 03-31-2012 History SDOH Alcohol Comment social - wine [facility] Start: 1960 Sex Assigned At Not on file C [facility] Start: 03-31-2012 End: 11-10-2022 Cigarettes smoked current (pack per day) - Reported 1 [facility] Start: 03-31-2012 Tobacco use and exposure Smokeless tobacco non-user [facility] Work Phone: Start: 09-30-2022 End: 11-10-2022 Tobacco use panel [facility] National Score (1-10 0), lower number is lower risk Not on file [facility] Are you now , , , , never or living with a partner? Refused [facility] (I/We) worried marilyn er (my/our) food would run out before (I/we) got money to buy more. DK or Refused [facility] Clinical Notes 08-08-2007 to 01-06-2023 Patient InstructionsAquiles Edmondson MD - 01/06/2023 10:37 AM Amina Souza MA - 01/06/2023 10:25 AM Tamara Ureña RN - 12/06/2022 3:16 PM EDTStacia Harris - 08/25/2021 2:40 PM EDT Note Date & Type Note Facility 01-06-2023 Note HNO ID: [id number] Author: Aquiles Edmondson MD Service: ? Author Type: Physician Type: Progress Notes Filed: 01/06/2023 11:13 AM Note Text: Chief Complaint Patient presents with: CARD New Patient Consult: Scleroscope Tester ref for abnormal echo History of Present Illness: Pradeep Jimenez is a 62 year old female with hx of HTN, HLD, CVA (recent cortical infarcts ). Pt. Noted to have trivial pericardial effusion with possible pericardial fat vs layered clot described on TTE from [place], [place]. Pt. Noted to have no significant recurrence of L arm weakness, she intermittent sxs of weakness in L arm with increased activity and note compliance with rx. 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 She reports cutting back on cigarettes to 7 cigs a day, she notes no orthopnea, PND or LE edema, notes no chest pain or palpitation. She notes no sxs of dizzyness or syncope. Pt notes well controlled BP in 130s at home, notes cutting back on caffeine, sodas and tobacco. Noted to have frontal and parietal cortical infarct and R carotid has a 50-69% stenosis and L carotid has a 50% stenosis. PAST MEDICAL HISTORY Diagnosis Date Abnormal echocardiogram CVA (cerebral vascular accident) (HCC) Mixed hyperlipidemia Yellow jacket sting allergy PAST SURGICAL HISTORY Procedure Laterality Date LIG/TRNSXJ FLP TUBE ABDL/VAG APPR UNI/BI 1999 OPTX ANKLE DISLOCATION W/REPAIR/INT/XTRNL FIXJ 07/19/2019 ORIF Ankle FAMILY HISTORY Problem Relation Age of Onset Diabetes Mother Hypertension Mother Seizures Mother historical Cancer Mother lymphoma other (Hyperparathyroid) Mother other (Migraine) Mother other (SHIV) Mother Coronary Artery Disease Father dx late 50's, stent Prostate Cancer Father Cancer Father lung other (Asbestosis) Father Coronary Artery Disease Sister stent age 58 Hypertension Sister other (Nephrolithiasis) Sister Asthma Sister Aneurysm Maternal Grandfather Coronary Artery Disease Paternal Uncle MD 60's Colon Cancer Other paternal cousin (dx age 50) Social History Tobacco Use Smoking status: Every Day Packs/day: 1.00 Years: 36.00 Additional pack years: 0.00 Total pack years: 36.00 Types: Cigarettes Smokeless tobacco: Never Substance Use Topics Alcohol use: Yes Comment: social - wine Drug use: No ALLERGIES Allergen Reactions Aspirin tinnitus, sob, dizziness Biaxin [Clarithromy* Rash Tomatoes Shortness of Breath Medications: Current Outpatient Medications Medication Sig Dispense Refill atorvastatin (LIPITOR) 80 mg tablet Take 1 tablet by mouth once daily. clopidogrel (PLAVIX) 75 mg tablet Take 1 tablet by mouth once daily. EPINEPHrine (EPIPEN) 0.3 mg/0.3 mL auto-injector Inject 0.3 mL intramuscularly as needed. 1 Each 0 fluocinolone (SYNALAR) 0.01 % external solution 2 gtts in each ear bid prn itching 60 mL 0 fluticasone (FLONASE) 50 mcg/actuation nasal spray Use 2 Sprays in each nostril once daily as needed. 1 Bottle 6 triamcinolone acetonide (KENALOG) 0.5 % cream Apply as directed to affected area twice daily. (Patient not taking: Reported on 01/06/2023) 45 g 0 OMEGA-3 FATTY ACIDS (OMEGA-3 ORAL) Take by mouth. (Patient not taking: Reported on 01/06/2023) No current facility-administered medications for this visit. Review of Systems Constitutional: Negative for diaphoresis, malaise/fatigue and weight loss. HENT: Negative for congestion and nosebleeds. Eyes: Negative for blurred vision and double vision. Respiratory: Negative for cough, sputum production, shortness of breath and stridor. Cardiovascular: Negative for chest pain, palpitations, orthopnea, claudication, leg swelling and PND. Gastrointestinal: Negative for abdominal pain, blood in stool, constipation, diarrhea, heartburn, melena and nausea. Genitourinary: Negative for frequency and urgency. Musculoskeletal: Negative for falls and myalgias. Skin: Negative for rash. Neurological: Positive for weakness (Intermittent L arm weakness and burning sensation.). Negative for dizziness, tingling, tremors, sensory change, speech change and headaches. Endo/Heme/Allergies: Does not bruise/bleed easily. Psychiatric/Behavioral: Negative for memory loss. The patient does not have insomnia. Physical Examination: Vitals:BP 166/95 Pulse 76 Resp 18 Ht 5' 2 (1.58m) Wt 160 lb (72.6kg) SpO2 95[ROOM AIR]% LMP 10/29/2014 BMI 29.26 kg/(m2). BP w/Orthostatic Vitals Date and Time Orthostatic BP Orthostatic Pulse BP Pulse BP Position BP Site BP Cuff Size 01/06/23 1025 -- -- 166/95 76 Sitting Left Arm Regular Adult Peak Flow Date and Time PF Resp 01/06/23 1025 -- 18 Last 2 Encounter Wt Readings: Date: Wt: 01/06/2023 160 lb (72.6 kg) 12/06/2022 163 lb (73.9 kg) Physical Exam Vitals and nursing note reviewed. Constitutional: General: She is not in acute distress. Appearance: She is not diaph (more content not included)... [facility] 01-06-2023 Instructions Aquiles Edmondson MD - 01/06/2023 11:03 AM EST Heart Disease: Warning Signs Why are warning signs of heart disease important? Heart disease is the leading cause of in the [place]. Often there are symptoms of heart disease years before you have major heart problems. Ignoring warning signs of heart disease can be fatal. It can also lead to years of unnecessary disability. The signs of heart disease are not the same for everyone, and symptoms can be a lot like symptoms of other problems. However, some common warning signs are: Chest pain Shortness of breath, especially with activity Swelling in the legs and feet Pain in your calf muscles when you are walking High blood pressure High cholesterol If you pay attention to these possible signs of heart and blood vessel disease and get treatment, you may prevent a serious problem later. Chest pain (angina) Angina is pain, tightness, or pressure in your chest. It happens when your heart muscles are not getting enough oxygen. The symptoms of angina may vary from person to person. It can be a discomfort in the chest that lasts for several minutes, or that goes away but keeps coming back. It can feel like uncomfortable pressure, squeezing, or viselike pain. There may be discomfort in other areas of the upper body, such as in one or both upper arms, the back, neck, or jaw. Angina can also feel like stomach indigestion or heartburn. It can happen with activity, after you eat, or even when you are just resting. Most angina happens when you exert yourself physically and then goes away when you rest. A type of angina that comes on unexpectedly, particularly when you are at rest, is called unstable angina. Unstable angina is much more serious. It may mean that without immediate medical attention a heart attack will soon occur. It is possible to have a heart attack with no warning and no pain, but many people have angina for days, weeks, or months before a heart attack. If you think you have been having angina, you should see your healthcare provider right away. Follow your provider's advice for control of blood pressure, cholesterol, smoking, diet, exercise, weight, and stress. This may help prevent a heart attack. Call 911 for emergency help right away if you have symptoms of a heart attack or stroke. The most common symptoms of a heart attack include: Chest pain or pressure, squeezing, or fullness in the center of your chest that lasts more than a few minutes, or goes away and comes back (may feel like indigestion or heartburn) Pain or discomfort in one or both arms or shoulders, or in your back, neck, jaw, or stomach Trouble breathing Breaking out in a cold sweat for no known reason If your provider has prescribed nitroglycerin for angina, pain that does not go away after taking your nitroglycerin as directed Along with these symptoms, you may also feel very tired, faint, or be sick to your stomach. Shortness of breath Shortness of breath is the most common symptom of heart failure. Heart failure happens when the heart muscle is cannot pump enough blood to meet the body's needs. The blood begins to back up because the heart is not pumping well. The veins, tissues, and lungs become congested with fluid. This can make it hard for you to breathe. If heart failure is not treated, it will get worse. If you begin to get breathless going upstairs, or after less than usual exercise, or if you need to be propped by more pillows to breathe comfortably in bed at night, see your provider as soon as possible. Shortness of breath from heart failure usually happens gradually over a long period of time. Sudden shortness of breath, even without chest pain, can mean a heart attack. There are usually other symptoms with a heart attack, such as nausea, sweating, and lightheadedness, but sudden shortness of breath is an emergency, even when there are no other symptoms. Swelling (edema) in the legs and feet Many people have leg swelling from causes other than heart disease. However, the collection of fluid in your legs can be a warning sign of heart problems. This is especially true if you have other symptoms, such as shortness of breath, especially with activity. You may have swelling in your abdomen, too. Tell your healthcare provider if your legs, ankles, or feet have become swollen. Pain in the legs with walking (claudication) Pain that occurs in the calf muscles when you walk can be a sign of heart and blood vessel disease. This type of pain happens only with activity and stops a minute or two after you stop the activity. It occurs when your muscles are not getting enough oxygen because of blocked arteries. Blocked leg arteries may mean there are also blockages in the heart (coronary) arteries. High blood pressure and high blood cholesterol High blood pressure and high blood cholesterol are both warning signs of possible heart problems. You usually cannot tell if you have high blood pressure or high blood cholesterol without measuring your blood pressure or testing your blood. Both measurements may be done at health checkups. A blood pressure machine may be available in your local pharmacy. High blood pressure and high blood cholesterol can be treated by your healthcare provider. High blood pressure also increases your risk of stroke, kidney problems, and loss of vision. Lowering your blood pressure helps lower your risk of heart disease and these other problems. What should I do if have warning signs of heart disease? If you have any of these warning signs, see your healthcare provider. Your provider will ask about your personal and family medical history, examine you, and do the recommended tests to check for heart disease. You can lower your risk of heart attack or other problems caused by heart disease by following the treatment recommended by your provider. documented in this encounter [facility] 01-06-2023 History of Presen t illness Narrative Chief Complaint Patient presents with: CARD New Patient Consult: Scleroscope Tester ref for abnormal echo History of Present Illness: Pradeep Jimenez is a 62 year old female with hx of HTN, HLD, CVA (recent cortical infarcts ). Pt. Noted to have trivial pericardial effusion with possible pericardial fat vs layered clot described on TTE from [place], [place]. Pt. Noted to have no significant recurrence of L arm weakness, she intermittent sxs of weakness in L arm with increased activity and note compliance with rx. 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 She reports cutting back on cigarettes to 7 cigs a day, she notes no orthopnea, PND or LE edema, notes no chest pain or palpitation. She notes no sxs of dizzyness or syncope. Pt notes well controlled BP in 130s at home, notes cutting back on caffeine, sodas and tobacco. Noted to have frontal and parietal cortical infarct and R carotid has a 50-69% stenosis and L carotid has a 50% stenosis. PAST MEDICAL HISTORY Diagnosis Date Abnormal echocardiogram CVA (cerebral vascular accident) (HCC) Mixed hyperlipidemia Yellow jacket sting allergy PAST SURGICAL HISTORY Procedure Laterality Date LIG/TRNSXJ FLP TUBE ABDL/VAG APPR UNI/BI 1999 OPTX ANKLE DISLOCATION W/REPAIR/INT/XTRNL FIXJ 07/19/2019 ORIF Ankle FAMILY HISTORY Problem Relation Age of Onset Diabetes Mother Hypertension Mother Seizures Mother historical Cancer Mother lymphoma other (Hyperparathyroid) Mother other (Migraine) Mother other (SHIV) Mother Coronary Artery Disease Father dx late 50's, stent Prostate Cancer Father Cancer Father lung other (Asbestosis) Father Coronary Artery Disease Sister stent age 58 Hypertension Sister other (Nephrolithiasis) Sister Asthma Sister Aneurysm Maternal Grandfather Coronary Artery Disease Paternal Uncle MD 60's Colon Cancer Other paternal cousin (dx age 50) Social History Tobacco Use Smoking status: Every Day Packs/day: 1.00 Years: 36.00 Additional pack years: 0.00 Total pack years: 36.00 Types: Cigarettes Smokeless tobacco: Never Substance Use Topics Alcohol use: Yes Comment: social - wine Drug use: No ALLERGIES Allergen Reactions Aspirin tinnitus, sob, dizziness Biaxin [Clarithromy* Rash Tomatoes Shortness of Breath Medications: Current Outpatient Medications Medication Sig Dispense Refill atorvastatin (LIPITOR) 80 mg tablet Take 1 tablet by mouth once daily. clopidogrel (PLAVIX) 75 mg tablet Take 1 tablet by mouth once daily. EPINEPHrine (EPIPEN) 0.3 mg/0.3 mL auto-injector Inject 0.3 mL intramuscularly as needed. 1 Each 0 fluocinolone (SYNALAR) 0.01 % external solution 2 gtts in each ear bid prn itching 60 mL 0 fluticasone (FLONASE) 50 mcg/actuation nasal spray Use 2 Sprays in each nostril once daily as needed. 1 Bottle 6 triamcinolone acetonide (KENALOG) 0.5 % cream Apply as directed to affected area twice daily. (Patient not taking: Reported on 01/06/2023) 45 g 0 OMEGA-3 FATTY ACIDS (OMEGA-3 ORAL) Take by mouth. (Patient not taking: Reported on 01/06/2023) No current facility-administered medications for this visit. Review of Systems Constitutional: Negative for diaphoresis, malaise/fatigue and weight loss. HENT: Negative for congestion and nosebleeds. Eyes: Negative for blurred vision and double vision. Respiratory: Negative for cough, sputum production, shortness of breath and stridor. Cardiovascular: Negative for chest pain, palpitations, orthopnea, claudication, leg swelling and PND. Gastrointestinal: Negative for abdominal pain, blood in stool, constipation, diarrhea, heartburn, melena and nausea. Genitourinary: Negative for frequency and urgency. Musculoskeletal: Negative for falls and myalgias. Skin: Negative for rash. Neurological: Positive for weakness (Intermittent L arm weakness and burning sensation.). Negative for dizziness, tingling, tremors, sensory change, speech change and headaches. Endo/Heme/Allergies: Does not bruise/bleed easily. Psychiatric/Behavioral: Negative for memory loss. The patient does not have insomnia. Physical Examination: Vitals:BP 166/95 Pulse 76 Resp 18 Ht 5' 2 (1.58m) Wt 160 lb (72.6kg) SpO2 95[ROOM AIR]% LMP 10/29/2014 BMI 29.26 kg/(m^2). BP w/Orthostatic Vitals Date and Time Orthostatic BP Orthostatic Pulse BP Pulse BP Position BP Site BP Cuff Size 01/06/23 1025 -- -- 166/95 76 Sitting Left Arm Regular Adult Peak Flow Date and Time PF Resp 01/06/23 1025 -- 18 Last 2 Encounter Wt Readings: Date: Wt: 01/06/2023 160 lb (72.6 kg) 12/06/2022 163 lb (73.9 kg) Physical Exam Vitals and nursing note reviewed. Constitutional: General: She is not in acute distress. Appearance: She is not diaphoretic. HENT: Head: Normocephalic. Eyes: General: No scleral icterus. Conjunctiva/sclera: Conjunctivae normal. Neck: Thyroid: No thyromegaly. Vascular: Carotid bruit (faint bruit in R) present. No JVD. Trachea: No tracheal deviation. Cardiovascular: Rate and Rhythm: Normal rate and regular rhythm. No extrasystoles are present. Chest Wall: PMI is not displaced. Pulses: No decreased pulses. Carotid pulses are 2+ on the right side and 2+ on the left side. Radial pulses are 2+ on the right side and 2+ on the left side. Dorsalis pedis pulses are 2+ on the right side and 2+ on the left side. Posterior tibial pulses are 2+ on the right side and 2+ on the left side. Heart sounds: S1 normal and S2 normal. Heart sounds not distant. No murmur heard. No systolic murmur is present. No diastolic murmur is present. No friction rub. No gallop. No S3 or S4 sounds. Pulmonary: Effort: Pulmonary effort is normal. No respiratory distress. Breath sounds: Normal breath sounds. No stridor. No wheezing or rales. Chest: Chest wall: No tenderness. Abdominal: General: Bowel sounds are normal. There is no distension. Palpations: Abdomen is soft. Tenderness: There is no abdominal tenderness. There is no rebound. Musculoskeletal: General: No tenderness or deformity. Right lower leg: No edema. Left lower leg: No edema. Lymphadenopathy: Cervical: No cervical adenopathy. Skin: General: Skin is warm and dry. Findings: No erythema or rash. Neurological: Mental Status: She is alert and oriented to person, place, and time. Cranial Nerves: No cranial nerve deficit. Gait: Gait is intact. Psychiatric: Mood and Affect: Mood normal. Cognition and Memory: Memory normal. Pertinent Labs: CBC: Hemoglobin (g/dL) Date Value 05/18/2016 16.0 Hematocrit (%) Date Value 05/18/2016 50.1 WBC (k/uL) Date Value 05/18/2016 3.75 Platelet Count (k/uL) Date Value 05/18/2016 288 BMP: Glucose (mg/dL) Date Value 05/18/2016 106 Potassium (mmol/L) Date Value 05/18/2016 4.1 Sodium (mmol/L) Date Value 05/18/2016 138 Chloride (mmol/L) Date Value 05/18/2016 97 CO2 (mmol/L) Date Value 05/18/2016 24 Creatinine (mg/dL) Date Value 05/18/2016 0.78 BUN (mg/dL) Date Value 05/18/2016 12 Anion Gap (mmol/L) Date Value 05/18/2016 17 Calcium (mg/dL) Date Value 05/18/2016 9.0 INR: Lipid Profile: Cholesterol, Total Date Value Ref Range Status 05/18/2016 237 (H) 100 - 199 mg/dL Final HDL Cholesterol Date Value Ref Range Status 05/18/2016 33 (L) >55 mg/dL Final LDL Cholesterol Date Value Ref Range Status 05/18/2016 178 (H) 60 - 129 mg/dL Final Triglyceride Date Value Ref Range Status 05/18/2016 129 30 - 149 mg/dL Final Hemoglobin A1C: No results found for: HGBA1C TSH: No results found for: TSHREFL Most Recent Cardiac Testing ZIO patch(): Patient had a min HR of 58 bpm, max HR of 203 bpm, and avg HR of 84 bpm. Predominant underlying rhythm was Sinus Rhythm. 1 run of Ventricular Tachycardia occurred lasting 4 beats with a max rate of 167 bpm (avg 142 bpm). 10 Supraventricular Tachycardia runs occurred, the run with the fastest interval lasting 5 beats with a max rate of 203 bpm, the longest lasting 16.7 secs with an avg rate of 132 bpm. Isolated SVEs were rare (<1.0%), SVE Couplets were rare (<1.0%), and SVE Triplets were rare (<1.0%). Isolated VEs were rare (<1.0%), and no VE Couplets or VE Triplets were present. (TTE (): Left Ventricle Normal size and thickness. The left ventricular ejection fraction is 65 %. Stage 1 diastolic dysfunction. Right Ventricle Normal right ventricle. Atria The left and right atria are normal. Bubble contrast study is negative for PFO/ASD. Mitral Valve The mitral valve is structurally normal. No prolapse or stenosis seen. Tricuspid Valve Trivial tricuspid valve insufficiency. Unable to estimate RV systolic pressure due to insufficient tricuspid regurgitant envelope. Aortic Valve Trisinus/trileaflet aortic valve. Pulmonic Valve The pulmonic valve is not well visualized. Great Vessels Normal sized aortic root. Pericardium/Pleural Trivial pericardial effusion. Anterior epicardial fat pad versus pericardial layered clot. Recommend cardiac CT/MRI for further evaluation. Assessment and Plan: CVA HTN, HLD Epicardial fat pad ASCVD -no sxs of pericarditis, trivial effusion, and no sxs of constriction. Can consider repeat TTE if there is any progression in activity intolerance. -instructed pt to monitor for any recurrent sxs of L arm weakness, may need to discuss R CEA. Cont. Plavix and lipitor. -offered stress testing if there is failure to imporve activity tolerance with cutting back on tobacco and increasing activity. -will cont. Ambulatory BP monitoring, pt defers rx initiation for HTN at this time. -pt defers tobacco cessation aides at this time, cutting back on her own. Electronically signed by Aquiles Edmondson MD on January 06, 2023, 10:37 AM documented in this encounter [facility] 01-06-2023 Nurse Note Patient denies any cardiac issues or symptoms. documented in this encounter [facility] 12-13-2022 Note Patient Outreach ([facility] LMMN) PRADEEP JIMENEZ ([id number]) 1960 F Date Time Provider Department 12/13/22 RADHIKA ZEE During your visit today, we recorded the following information about you: Allergies As of Date: 12/13/2022 Noted Allergy Reaction ASPIRIN 11/16/2002 Comments: tinnitus, sob, dizziness BIAXIN (CLARITHROMYCIN) 12/17/2005 2 - Rash TOMATOES 04/11/2012 12 - Shortness of Breath Date Reviewed: 12/06/2022 Reviewed by: Josseline Guevara OCCA - Fully Assessed Visit Diagnosis:Tobacco abuse [Z72.0] Order(s):[facility]SULT [facility] [[id number]] Order #: [id number]: 1 FUTURE Prescriptions as of 12/13/2022 - atorvastatin (LIPITOR) 80 mg tablet Take 1 tablet by mouth once daily. - clopidogrel (PLAVIX) 75 mg tablet Take 1 tablet by mouth once daily. - EPINEPHrine (EPIPEN) 0.3 mg/0.3 mL auto-injector Inject 0.3 mL intramuscularly as needed. - fluocinolone (SYNALAR) 0.01 % external solution 2 gtts in each ear bid prn itching - triamcinolone acetonide (KENALOG) 0.5 % cream Apply as directed to affected area twice daily. - fluticasone (FLONASE) 50 mcg/actuation nasal spray Use 2 Sprays in each nostril once daily as needed. - OMEGA-3 FATTY ACIDS (OMEGA-3 ORAL) Take by mouth. Problem List As Of Date 12/13/2022 Noted Resolved TOBACCO USE DISORDER [F17.200] 11/16/2002 Other acute infections of external ear [H60.399]05/13/2006 11/27/2014 Pain in joint, lower leg [M25.569] 08/08/2007 11/27/2014 Yellow jacket sting allergy [Z91.030] 11/12/2014 Hyperlipidemia [E78.5] 05/03/2016 Elevated blood pressure reading without diagnos*05/03/2016 Encounter Status:Closed by RADHIKA ZEE on 12/13/22 [facility] 12-06-2022 Note HNO ID: [id number] Author: Tamara Mccracken RN Service: ? Author Type: Registered Nurse Type: Progress Notes Filed: 12/10/2022 3:59 PM Note Text: EVENT MONITOR DISPOSABLE PATCH INSTRUCTIONS Patient Name: Pradeep Jimenez [facility] Number: [id number] Skin prepped and cleansed with alcohol Patch secured to prepped area Monitor Activated Serial #: [id number] Patient Instructed: Prescribed order timeframe Bathing guidelines Usage of event button and diary documentation Return of monitor at the end of prescribed order Call with problems [phone] or [phone]. [phone] Patient expresses a good understanding of instructions Tamara cMcracken RN [facility] 12-06-2022 Note HNO ID: [id number] Author: Naomi Babin MD Service: ? Author Type: Physician Type: Progress Notes Filed: 12/10/2022 3:59 PM Note Text: CC: recheck HPI: 62 year-old female here for follow-up from visit 11/17/2022. Saw Dr. Valentine (vascular) 11/18/2022. Advised monitor (yet to be placed), repeat carotid duplex 3 years. Did not yet see Dr. Cavanaugh (neurology). Slowly cutting down cigarettes. 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 Did not yet schedule PT/OT. Scheduled to go back to work 12/08/2022. Some concern with fatigue, but is going to proceed as planned. Reviewed echo results from hospitalization. PHYSICAL EXAMINATION: General appearance: well appearing, in no acute distress Skin: color, texture, turgor normal Lungs: clear to auscultation, no wheezing or rhonchi Heart: RRR without murmur, gallop, or rubs, no ectopy Extremities: no clubbing, cyanosis, or edema Neuro: no focal findings Assessment/Plan: (I63.9) Cerebrovascular accident (CVA), unspecified mechanism (HCC) (primary encounter diagnosis) Comment: stable, vascular follow-up complete Plan: to schedule with neurology, Zio placed, risk factor modification, to notify me if any issues with RTW (R93.1) Abnormal echocardiogram Comment: anterior epicardial fat pad vs pericardial layering clot - curbside in-house consult advised outpatient follow-up Plan: CONSULT TO CARDIOLOGY Cardiology consult entered (E78.2) Mixed hyperlipidemia Comment: now on statin Plan: repeat labs before next visit (F17.200) Tobacco use disorder Comment: tapering down Plan: encouraged continued smoking cessation efforts Return 8 weeks - PRN sooner [facility] 12-06-2022 History of Presen t illness Narrative EVENT MONITOR DISPOSABLE PATCH INSTRUCTIONS Patient Name: Pradeep Jimenez Clinic Number: [id number] Skin prepped and cleansed with alcohol Patch secured to prepped area Monitor Activated Serial #: [id number] Patient Instructed: Prescribed order timeframe Bathing guidelines Usage of event button and diary documentation Return of monitor at the end of prescribed order Call with problems [phone] or [phone]. [phone] Patient expresses a good understanding of instructions Tamara Mccracken, RN CC: recheck HPI: 62 year-old female here for follow-up from visit 11/17/2022. Saw Dr. Valentine (vascular) 11/18/2022. Advised monitor (yet to be placed), repeat carotid duplex 3 years. Did not yet see Dr. Cavanaugh (neurology). Slowly cutting down cigarettes. 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 Did not yet schedule PT/OT. Scheduled to go back to work 12/08/2022. Some concern with fatigue, but is going to proceed as planned. Reviewed echo results from hospitalization. PHYSICAL EXAMINATION: General appearance: well appearing, in no acute distress Skin: color, texture, turgor normal Lungs: clear to auscultation, no wheezing or rhonchi Heart: RRR without murmur, gallop, or rubs, no ectopy Extremities: no clubbing, cyanosis, or edema Neuro: no focal findings Assessment/Plan: (I63.9) Cerebrovascular accident (CVA), unspecified mechanism (HCC) (primary encounter diagnosis) Comment: stable, vascular follow-up complete Plan: to schedule with neurology, Zio placed, risk factor modification, to notify me if any issues with RTW (R93.1) Abnormal echocardiogram Comment: anterior epicardial fat pad vs pericardial layering clot - curbside in-house consult advised outpatient follow-up Plan: CONSULT TO CARDIOLOGY Cardiology consult entered (E78.2) Mixed hyperlipidemia Comment: now on statin Plan: repeat labs before next visit (F17.200) Tobacco use disorder Comment: tapering down Plan: encouraged continued smoking cessation efforts Return 8 weeks - PRN sooner documented in this encounter [facility] 12-01-2022 Miscellaneous Notes Called pt, Went over the zio monitor with her. Typically when mailed by [employer] it takes two weeks to receive to the pt. Pt is seeing Dr. Babin on the of this month. If pt has not received the monitor by then we will place one in the office. All pts questions were answered about A-Fib and the zio monitor. Return call from patient Very frustrated with the run around trying to get this heart monitor resolved Reviewed with patient concerning the 'Zoe Majestet' message response She states she will double check with the company for the status of the request. documented in this encounter [facility] 11-24-2022 Note Patient Outreach ([facility] TMMN) PRADEEP JIMENEZ ([id number]) 1960 F Date Time Provider Department 11/24/22 NAOMI BABIN During your visit today, we recorded the following information about you: Allergies As of Date: 11/24/2022 Noted Allergy Reaction ASPIRIN 11/16/2002 Comments: tinnitus, sob, dizziness BIAXIN (CLARITHROMYCIN) 12/17/2005 2 - Rash TOMATOES 04/11/2012 12 - Shortness of Breath Date Reviewed: 11/17/2022 Reviewed by: Josseline Guevara OCCA - Fully Assessed Visit Diagnosis:Encounter for screening mammogram for breast cancer [Z12.31] Order(s):[facility] SCREENING [[id number]] Order #: [id number] FUTURE Prescriptions as of 11/29/2022 - atorvastatin (LIPITOR) 80 mg tablet Take 1 tablet by mouth once daily. - clopidogrel (PLAVIX) 75 mg tablet Take 1 tablet by mouth once daily. - EPINEPHrine (EPIPEN) 0.3 mg/0.3 mL auto-injector Inject 0.3 mL intramuscularly as needed. - fluocinolone (SYNALAR) 0.01 % external solution 2 gtts in each ear bid prn itching - triamcinolone acetonide (KENALOG) 0.5 % cream Apply as directed to affected area twice daily. - fluticasone (FLONASE) 50 mcg/actuation nasal spray Use 2 Sprays in each nostril once daily as needed. - OMEGA-3 FATTY ACIDS (OMEGA-3 ORAL) Take by mouth. Problem List As Of Date 11/24/2022 Noted Resolved TOBACCO USE DISORDER [F17.200] 11/16/2002 Other acute infections of external ear [H60.399]05/13/2006 11/27/2014 Pain in joint, lower leg [M25.569] 08/08/2007 11/27/2014 Yellow jacket sting allergy [Z91.030] 11/12/2014 Hyperlipidemia [E78.5] 05/03/2016 Elevated blood pressure reading without diagnos*05/03/2016 Encounter Status:Closed by [employer], PRODUSER on 11/29/22 [facility] 11-17-2022 Note HNO ID: [id number] Author: Naomi Babin MD Service: ? Author Type: Physician Type: Progress Notes Filed: 11/23/2022 3:34 PM Note Text: CC: hospital follow-up HPI: 62 year-old female here for above. Last visit with me 06/03/2016. Admitted 11/05/2022 at [facility] for acute ischemic right MCA stroke. Onset of symptoms just prior to presentation. Numbness and weakness left UE - couldn't move arm while getting ready for work. Associated symptoms of dizziness, numbness left lower face. Hypertensive upon presentation - improved. CT negative for bleed. CTA head/neck 50-69% stenosis right ICA, 50% stenosis left ICA. Neuro consulted. Given TNK. Admitted to ICU. MRI showed multiple right hemispheric strokes concerning for embolic phenomenon. Echocardiogram done - EF 65%, stage 1 diastolic dysfunction, anterior epicardial fat pad vs pericardial layering clot (cardiac CT/MRI recommended). Cardiology consulted - non-emergent, outpatient follow-up advised. Vascular consulted. Carotid duplex done (CTA reported to have poor contrast timing) - < 50% stenosis bilaterally. PT/OT/ST consulted. Started on atorvastatin and Plavix. Discharged home 11/08/2022. HgbA1C 6.1 during admission. Overall feeling better. Still with some very mild left sided weakness. Scheduled to see vascular - Dr. Francisco Javier Valentine - tomorrow. Advised to see neuro - Dr. Azael Cavanaugh - appointment TBS. Cutting down cigarettes. Had been smoking 1 ppd prior. PHYSICAL EXAMINATION: General appearance: well appearing, in no acute distress Skin: color, texture, turgor normal Neck: supple, no adenopathy; thyroid symmetric, normal size, no bruits Lungs: clear to auscultation, no wheezing or rhonchi Heart: RRR without murmur, gallop, or rubs, no ectopy Extremities: no clubbing, cyanosis, or edema Neuro: speech normal, MS intact, no facial asymmetry, strength 4+/5 left UE, 5/5 right UE Assessment/Plan: (I63.9) Cerebrovascular accident (CVA), unspecified mechanism (HCC) (primary encounter diagnosis) Comment: stable Plan: atorvastatin (LIPITOR) 80 mg tablet, clopidogrel (PLAVIX) 75 mg tablet, CONSULT TO PHYSICAL THERAPY, CONSULT TO ORACLE ENGINEER Risk factor modification, smoking cessation, statin, Plavix, neuro and vascular follow-up as planned, PT/OT consults (R29.898) Left arm weakness Comment: see above Plan: CONSULT TO PHYSICAL THERAPY, CONSULT TO ORACLE ENGINEER (F17.200) Tobacco use disorder Comment: cessation encouraged Plan: consider consult to smoking cessation program (declined at present) (E78.2) Mixed hyperlipidemia Comment: now on atorvastatin Plan: atorvastatin (LIPITOR) 80 mg tablet, LIPID PANEL BASIC, COMP METABOLIC PANEL TLC, repeat labs (R73.01) IFG (impaired fasting glucose) Plan: TLC, monitor with repeat labs Return in two weeks for follow-up/record review. Will need to address cardiology consult for echo findings. [facility] 11-17-2022 History of Presen t illness Narrative CC: hospital follow-up HPI: 62 year-old female here for above. Last visit with me 06/03/2016. Admitted 11/05/2022 at [facility] for acute ischemic right MCA stroke. Onset of symptoms just prior to presentation. Numbness and weakness left UE - couldn't move arm while getting ready for work. Associated symptoms of dizziness, numbness left lower face. Hypertensive upon presentation - improved. CT negative for bleed. CTA head/neck 50-69% stenosis right ICA, 50% stenosis left ICA. Neuro consulted. Given TNK. Admitted to ICU. MRI showed multiple right hemispheric strokes concerning for embolic phenomenon. Echocardiogram done - EF 65%, stage 1 diastolic dysfunction, anterior epicardial fat pad vs pericardial layering clot (cardiac CT/MRI recommended). Cardiology consulted - non-emergent, outpatient follow-up advised. Vascular consulted. Carotid duplex done (CTA reported to have poor contrast timing) - < 50% stenosis bilaterally. PT/OT/ST consulted. Started on atorvastatin and Plavix. Discharged home 11/08/2022. HgbA1C 6.1 during admission. Overall feeling better. Still with some very mild left sided weakness. Scheduled to see vascular - Dr. Francisco Javier Valentine - tomorrow. Advised to see neuro - Dr. Azael Cavanaugh - appointment TBS. Cutting down cigarettes. Had been smoking 1 ppd prior. PHYSICAL EXAMINATION: General appearance: well appearing, in no acute distress Skin: color, texture, turgor normal Neck: supple, no adenopathy; thyroid symmetric, normal size, no bruits Lungs: clear to auscultation, no wheezing or rhonchi Heart: RRR without murmur, gallop, or rubs, no ectopy Extremities: no clubbing, cyanosis, or edema Neuro: speech normal, MS intact, no facial asymmetry, strength 4+/5 left UE, 5/5 right UE Assessment/Plan: (I63.9) Cerebrovascular accident (CVA), unspecified mechanism (HCC) (primary encounter diagnosis) Comment: stable Plan: atorvastatin (LIPITOR) 80 mg tablet, clopidogrel (PLAVIX) 75 mg tablet, CONSULT TO PHYSICAL THERAPY, CONSULT TO ORACLE ENGINEER Risk factor modification, smoking cessation, statin, Plavix, neuro and vascular follow-up as planned, PT/OT consults (R25.018) Left arm weakness Comment: see above Plan: CONSULT TO PHYSICAL THERAPY, CONSULT TO ORACLE ENGINEER (F17.200) Tobacco use disorder Comment: cessation encouraged Plan: consider consult to smoking cessation program (declined at present) (E78.2) Mixed hyperlipidemia Comment: now on atorvastatin Plan: atorvastatin (LIPITOR) 80 mg tablet, LIPID PANEL BASIC, COMP METABOLIC PANEL TLC, repeat labs (R73.01) IFG (impaired fasting glucose) Plan: TLC, monitor with repeat labs Return in two weeks for follow-up/record review. Will need to address cardiology consult for echo findings. documented in this encounter [facility] 10-05-2022 Miscellaneous Notes Refilled once but she has not been seen since 2019 so for any further needs or refills, she will need to schedule a physical with Dr. Babin or one of our team members. Linda Bowles APRN.DISTRICT BRANCH MANAGER Pt is identified by name and birthdate: Yes Patient requesting Refill. Lots of yellow jackets in her area LAST OV 06/03/2016 NEXT OV none noted Please advise documented in this encounter [facility] 09-30-2022 Note HNO ID: [id number] Author: Clemente Cristobal APRN.MELANIE Service: ? Author Type: Nurse Practitioner Type: Progress Notes Filed: 09/30/2022 1:46 PM Note Text: Subjective HPI HPI Pradeep Jimenez is a 62 year old female who presents today for CC of toothache. This started 1 day ago. Has tried otc medication for relief. Symptoms are worsened by nothing. Risk factors hx of poor dental health. Denies dental injury, fever. .Patient presents with: Dental Problem: Upper right tooth discomfort, sinus pain, drainage x 1 day PAST MEDICAL HISTORY Diagnosis Date Yellow jacket sting allergy PAST SURGICAL HISTORY Procedure Laterality Date LIG/TRNSXJ FLP TUBE ABDL/VAG APPR UNI/BI 1999 OPTX ANKLE DISLOCATION W/REPAIR/INT/XTRNL FIXJ 07/19/2019 ORIF Ankle ALLERGIES Aspirin, Biaxin [Clarithromycin], and Tomatoes MEDICATIONS EPINEPHrine (EPIPEN) 0.3 mg/0.3 mL auto-injector Inject 0.3 mL intramuscularly as needed. fluocinolone (SYNALAR) 0.01 % external solution 2 gtts in each ear bid prn itching triamcinolone acetonide (KENALOG) 0.5 % cream Apply as directed to affected area twice daily. fluticasone (FLONASE) 50 mcg/actuation nasal spray Use 2 Sprays in each nostril once daily as needed. OMEGA-3 FATTY ACIDS (OMEGA-3 ORAL) Take by mouth. amoxicillin (AMOXIL) 875 mg tablet Take 1 tablet by mouth twice daily for 10 days. FAMILY HISTORY Problem Relation Age of Onset Diabetes Mother Hypertension Mother Seizures Mother historical Cancer Mother lymphoma other (Hyperparathyroid) Mother other (Migraine) Mother other (SHIV) Mother Coronary Artery Disease Father dx late 50's, stent Prostate Cancer Father Cancer Father lung other (Asbestosis) Father Coronary Artery Disease Sister stent age 58 Hypertension Sister other (Nephrolithiasis) Sister Asthma Sister Aneurysm Maternal Grandfather Coronary Artery Disease Paternal Uncle MD 60's Colon Cancer Other paternal cousin (dx age 50) Social History Tobacco Use Smoking status: Every Day Packs/day: 1.00 Years: 36.00 Additional pack years: 0.00 Total pack years: 36.00 Types: Cigarettes Smokeless tobacco: Never Substance Use Topics Alcohol use: Yes Comment: social - wine Drug use: No ROS Objective Blood pressure 150/88, pulse 98, temperature 36.8 ?C (98.3 ?F), resp. rate 21, weight 75 kg (165 lb 6.4 oz), last menstrual period 10/29/2014, SpO2 95 %. Physical Exam Constitutional: General: She is not in acute distress. Appearance: She is not toxic-appearing or diaphoretic. HENT: Head: Normocephalic and atraumatic. Right Ear: Hearing, tympanic membrane, ear canal and external ear normal. Left Ear: Hearing, tympanic membrane, ear canal and external ear normal. Nose: Nose normal. Mouth/Throat: Lips: [place]. Mouth: Mucous membranes are moist. Pulmonary: Effort: Pulmonary effort is normal. No accessory muscle usage or respiratory distress. Lymphadenopathy: Cervical: No cervical adenopathy. Right cervical: No superficial cervical adenopathy. Left cervical: No superficial cervical adenopathy. Neurological: Mental Status: She is alert and oriented to person, place, and time. ASSESSMENT/PLAN: 1. Toothache - ICD9: 525.9, ICD10: K08.89 Take medication as ordered See dentist feliberto Follow up if signs of infection worsen - AMOXICILLIN 875 MG TABLET Clemente Cristobal APRN.DISTRICT BRANCH MANAGER [facility] 09-30-2022 History of Presen t illness Narrative Images from the original note were not included. Subjective HPI HPI Pradeep Jimenez is a 62 year old female who presents today for CC of toothache. This started 1 day ago. Has tried otc medication for relief. Symptoms are worsened by nothing. Risk factors hx of poor dental health. Denies dental injury, fever. .Patient presents with: Dental Problem: Upper right tooth discomfort, sinus pain, drainage x 1 day PAST MEDICAL HISTORY Diagnosis Date Yellow jacket sting allergy PAST SURGICAL HISTORY Procedure Laterality Date LIG/TRNSXJ FLP TUBE ABDL/VAG APPR UNI/BI 1999 OPTX ANKLE DISLOCATION W/REPAIR/INT/XTRNL FIXJ 07/19/2019 ORIF Ankle ALLERGIES Aspirin, Biaxin [Clarithromycin], and Tomatoes MEDICATIONS EPINEPHrine (EPIPEN) 0.3 mg/0.3 mL auto-injector Inject 0.3 mL intramuscularly as needed. fluocinolone (SYNALAR) 0.01 % external solution 2 gtts in each ear bid prn itching triamcinolone acetonide (KENALOG) 0.5 % cream Apply as directed to affected area twice daily. fluticasone (FLONASE) 50 mcg/actuation nasal spray Use 2 Sprays in each nostril once daily as needed. OMEGA-3 FATTY ACIDS (OMEGA-3 ORAL) Take by mouth. amoxicillin (AMOXIL) 875 mg tablet Take 1 tablet by mouth twice daily for 10 days. FAMILY HISTORY Problem Relation Age of Onset Diabetes Mother Hypertension Mother Seizures Mother historical Cancer Mother lymphoma other (Hyperparathyroid) Mother other (Migraine) Mother other (SHIV) Mother Coronary Artery Disease Father dx late 50's, stent Prostate Cancer Father Cancer Father lung other (Asbestosis) Father Coronary Artery Disease Sister stent age 58 Hypertension Sister other (Nephrolithiasis) Sister Asthma Sister Aneurysm Maternal Grandfather Coronary Artery Disease Paternal Uncle MD 60's Colon Cancer Other paternal cousin (dx age 50) Social History Tobacco Use Smoking status: Every Day Packs/day: 1.00 Years: 36.00 Additional pack years: 0.00 Total pack years: 36.00 Types: Cigarettes Smokeless tobacco: Never Substance Use Topics Alcohol use: Yes Comment: social - wine Drug use: No ROS Objective Blood pressure 150/88, pulse 98, temperature 36.8 C (98.3 F), resp. rate 21, weight 75 kg (165 lb 6.4 oz), last menstrual period 10/29/2014, SpO2 95 %. Physical Exam Constitutional: General: She is not in acute distress. Appearance: She is not toxic-appearing or diaphoretic. HENT: Head: Normocephalic and atraumatic. Right Ear: Hearing, tympanic membrane, ear canal and external ear normal. Left Ear: Hearing, tympanic membrane, ear canal and external ear normal. Nose: Nose normal. Mouth/Throat: Lips: [place]. Mouth: Mucous membranes are moist. Pulmonary: Effort: Pulmonary effort is normal. No accessory muscle usage or respiratory distress. Lymphadenopathy: Cervical: No cervical adenopathy. Right cervical: No superficial cervical adenopathy. Left cervical: No superficial cervical adenopathy. Neurological: Mental Status: She is alert and oriented to person, place, and time. ASSESSMENT/PLAN: 1. Toothache - ICD9: 525.9, ICD10: K08.89 Take medication as ordered See dentist feliberto Follow up if signs of infection worsen - AMOXICILLIN 875 MG TABLET Clemente Cristobal APRN.MELANIE documented in this encounter [facility] 08-25-2021 History of Presen t illness Narrative Pt will be calling back to schedule her physical due to broken ankle once she can find a ride. Last OV: 06/03/2016 No upcoming visits noted My Chart message sent to encourage scheduling a visit with PCP documented in this encounter [facility] 02-09-2021 Miscellaneous Notes Spoke to pt and said to mail it to: [id number] [place] [address] Printed and signed. Please get to patient. Linda Bowles APRN.MELANIE Patient calling. She had left ankle surgery in July 2020 in [place] after an injury She has a plate and multiple screws in the ankle/foot Her surgeon is no longer with the practice. Patient asks if Dr. Babin will write the order for a handicap placard as it is time to renew. She can't come in for an appt as she is still living in [place] with her Mom where the injury occurred. There is a large/narrow staircase to get into her condo which she can't navigate on her own yet. [phone], ok to leave detailed message documented in this encounter [facility] documented as of this encounter (statuses as of 06/05/2021) [facility] History of Past illness Narrative* Problem Noted Date Resolved Date Pain in joint, lower leg 08/08/2007 015 Other acute infections of external ear 7 11/27/2014 documented as of this encounter (statuses as of 08/10/2021) [facility] History of Past illness Narrative* Problem Noted Date Resolved Date Pain in joint, lower leg 08/08/2007 015 Other acute infections of external ear 7 11/27/2014 documented as of this encounter (statuses as of 08/26/2021) [facility] History of Past illness Narrative* Problem Noted Date Diagnosed Date Resolved Date Pain in joint, lower leg 08/08/2007 Other acute infections of external ear 05/13/2006 11/27/2014 documented as of this encounter (statuses as of 09/30/2022) [address]-2008 History of Past illness Narrative* Problem Noted Date Diagnosed Date Resolved Date Pain in joint, lower leg 08/08/2007 Other acute infections of external ear 05/13/2006 11/27/2014 documented as of this encounter (statuses as of 10/06/2022) [address]2008 History of Past illness Narrative* Problem Noted Date Diagnosed Date Resolved Date Pain in joint, lower leg 08/08/2007 Other acute infections of external ear 05/13/2006 11/27/2014 documented as of this encounter (statuses as of 11/24/2022) [facility] History of Past illness Narrative* Problem Noted Date Diagnosed Date Resolved Date Pain in joint, lower leg 08/08/2007 Other acute infections of external ear 05/13/2006 11/27/2014 documented as of this encounter (statuses as of 11/29/2022) [address]2008 History of Past illness Narrative* Problem Noted Date Diagnosed Date Resolved Date Pain in joint, lower leg 08/08/2007 Other acute infections of external ear 05/13/2006 11/27/2014 documented as of this encounter (statuses as of 12/01/2022) [address]2008 History of Past illness Narrative* Problem Noted Date Diagnosed Date Resolved Date Pain in joint, lower leg 08/08/2007 Other acute infections of external ear 05/13/2006 11/27/2014 documented as of this encounter (statuses as of 12/11/2022) [address]2008 History of Past illness Narrative* Problem Noted Date Diagnosed Date Resolved Date Pain in joint, lower leg 08/08/2007 Other acute infections of external ear 05/13/2006 11/27/2014 documented as of this encounter (statuses as of 12/14/2022) [facility] History of Past illness Narrative* Problem Noted Date Diagnosed Date Resolved Date Pain in joint, lower leg 08/08/2007 Other acute infections of external ear 05/13/2006 11/27/2014 documented as of this encounter (statuses as of 01/06/2023) [facility] of [facility] surgery- Primary [facility] Diagnosis Encounter for screening mammogram for breast cancer documented [facility]* Diagnosis Toothache- Primary Unspecified disorder of the teeth and supporting structures documented in this encounter [facility] note* Diagnosis Food allergy Other adverse food reactions, not elsewhere classified documented in this encounter [facility] note* Diagnosis Cerebrovascular accident (CVA), unspecified mechanism (HCC)- Primary Left arm weakness Other musculoskeletal symptoms referable to limbs Tobacco use disorder Mixed hyperlipidemia IFG (impaired fasting glucose) Impaired fasting glucose documented in this encounter [facility] note* Diagnosis Encounter for screening mammogram for breast cancer [facility]* Diagnosis Cerebrovascular accident (CVA), unspecified mechanism (HCC)- Primary Abnormal echocardiogram Nonspecific (abnormal) findings on radiological and other examination of other intrathoracic organs Mixed hyperlipidemia Tobacco use disorder documented in this encounter [facility] note* Diagnosis Tobacco abuse Tobacco use disorder documented in this encounter [facility] note* Diagnosis Abnormal echocardiogram- Primary Nonspecific (abnormal) findings on radiological and other examination of other intrathoracic organs Elevated blood pressure reading without diagnosis of hypertension Cerebrovascular accident (CVA), unspecified mechanism (HCC) Mixed hyperlipidemia [facility] Diagnostic Procedure Only (Routine) - Pending Review Specialty Diagnoses / Procedures Referred By Maria coronel Referred To Contact [facility] Diagnoses Encounter for screening mammogram for breast cancer Procedures OSVALDO SCREENING SCREENING MAMMOGRAPHY BI 2-[place] [id number] [place] [address] [facility] [address] [place] [address] Referral ID Status Reason Start Date Expiration Date Visits Requested Visits Authorized [id number] Pending Review Auto-Generat ed Referral 08/05/2021 09/04/2022 1 1 [facility] Diagnostic Procedure Only (Routine) - Pending Review Specialty Diagnoses / Procedures Referred By Maria coronel Referred To Contact [facility] Diagnoses Encounter for screening mammogram for breast cancer Procedures OSVALDO SCREENING SCREENING MAMMOGRAPHY BI 2-[place] [address] [place] [address] [facility] [address] [place] [address] Referral ID Status Reason Start Date Expiration Date Visits Requested Visits Authorized [id number] Pending Review Auto-Generat ed Referral 3 12/24/2023 1 1 [facility] Reason for Referral Specialty Diagnoses / Procedures Referred By Contac t Referred To Contact [facility] Diagnoses Cerebrovascular accident (CVA), unspecified mechanism (HCC) Left arm weakness Procedures CONSULT TO ORACLE ENGINEER OCCUPATIONAL THERAPY EVAL HIGH COMPLEX 60 MINS Naomi Babin [place] [id number] [place] [address] [facility] [address] [place] [id number] Referral ID Status Reason Start Date Expiration Date Visits Requested Visits Authorized [id number] Pending Review Auto-Generat ed Referral 3 11/17/2023 1 1 Specialty Diagnoses / Procedures Referred By Contac t Referred To Contact [facility] Diagnoses Cerebrovascular accident (CVA), unspecified mechanism (HCC) Left arm weakness Procedures CONSULT TO PHYSICAL THERAPY PHYSICAL THERAPY EVALUATION HIGH COMPLEX 45 MINS Naomi Babin MD [id number] [place] [address] [facility] [address] [address] Referral ID Status Reason Start Date Expiration Date Visits Requested Visits Authorized [id number] Pending Review Auto-Generat ed Referral 3 11/17/2023 1 1 Specialty Diagnoses / Procedures Referred By Contac t Referred To Contact Cardiology Diagnoses Abnormal echocardiogram Procedures CONSULT TO CARDIOLOGY OFFICE/OUTPATIENT NEW HIGH MDM 60-74 [place] [address] [place] [address] Referral ID Status Reason Start Date Expiration Date Visits Requested Visits Authorized [id number] Authorized PCP Requested Referral 3 12/06/2023 1 1 Summary Purpose Family History No Family History Records FoundNo Family History Records Found Advance Directives No Advanced Directives Records FoundNo Advanced Directives Records Found Additional Source Comments Source Comments (unrecognize d section and content) In the event this informatio n is protected by the Federal Confidentiality of Alcohol and Drug Abuse Patient Records regulations: The Federal rules restrict any use of the information to criminally investigate or prosecute any alcohol or drug abuse patient.[facility] the event this information is protected by the Federal Confidentiality of Alcohol and Drug Abuse Patient Records regulations: The Federal rules restrict any use of the information to criminally investigate or prosecute any alcohol or drug abuse patient.[facility] the event this information is protected by the Federal Confidentiality of Alcohol and Drug Abuse Patient Records regulations: The Federal rules restrict any use of the information to criminally investigate or prosecute any alcohol or drug abuse patient.[facility] the event this information is protected by the Federal Confidentiality of Alcohol and Drug Abuse Patient Records regulations: The Federal rules restrict any use of the information to criminally investigate or prosecute any alcohol or drug abuse patient.[facility] the event this information is protected by the Federal Confidentiality of Alcohol and Drug Abuse Patient Records regulations: The Federal rules restrict any use of the information to criminally investigate or prosecute any alcohol or drug abuse patient.[facility] the event this information is protected by the Federal Confidentiality of Alcohol and Drug Abuse Patient Records regulations: The Federal rules restrict any use of the information to criminally investigate or prosecute any alcohol or drug abuse patient.[facility] the event this information is protected by the Federal Confidentiality of Alcohol and Drug Abuse Patient Records regulations: The Federal rules restrict any use of the information to criminally investigate or prosecute any alcohol or drug abuse patient.[facility] the event this information is protected by the Federal Confidentiality of Alcohol and Drug Abuse Patient Records regulations: The Federal rules restrict any use of the information to criminally investigate or prosecute any alcohol or drug abuse patient.[facility] the event this information is protected by the Federal Confidentiality of Alcohol and Drug Abuse Patient Records regulations: The Federal rules restrict any use of the information to criminally investigate or prosecute any alcohol or drug abuse patient.[facility] the event this information is protected by the Federal Confidentiality of Alcohol and Drug Abuse Patient Records regulations: The Federal rules restrict any use of the information to criminally investigate or prosecute any alcohol or drug abuse patient.[facility] the event this information is protected by the Federal Confidentiality of Alcohol and Drug Abuse Patient Records regulations: The Federal rules restrict any use of the information to criminally investigate or prosecute any alcohol or drug abuse patient.[facility] Reason for Visit (unrecogniz ed section and content) Reason Onset Date Comments [facility] 08/25/2021 PCP Visit Reason Comments Dental Problem Upper right tooth di [place], sinus pain, drainage x 1 day Reason Onset Date Comments Refill Request 10/05/2022 Reason Comments Hospital Follow Up Reason Comments Follow Up F/U on stroke. 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 Relationship Specialty Start Date End Date Naomi Babin MD PCP - General 12/13/05 Offset Lithographic Press Operator Relationship Specialty Start Date End Date Naomi Babin MD PCP - General 12/13/05 Offset Lithographic Press Operator Relationship Specialty Start Date End Date Naomi Babin MD PCP - General 12/13/05 Offset Lithographic Press Operator Relationship Specialty Start Date End Date Naomi Babin MD PCP - General 12/13/05 Offset Lithographic Press Operator Relationship Specialty Start Date End Date Naomi Babin MD PCP - General 12/13/05 Offset Lithographic Press Operator Relationship Specialty Start Date End Date Naomi Babin MD PCP - General 12/13/05 Offset Lithographic Press Operator Relationship Specialty Start Date End Date Naomi Babin MD PCP - General 12/13/05 Offset Lithographic Press Operator Relationship Specialty Start Date End Date Naomi Babin MD PCP - General 12/13/05 Offset Lithographic Press Operator Relationship Specialty Start Date End Date Naomi Babin MD PCP - General 12/13/05 INFORMATION SOURCE (unrecogn ized section and content) DATE CREATED AUTHOR AUTHOR'S ORGANIZ ATION 02/11/2023 [facility] FOR RECORDS PERTAINING TO PATIENTS WHO ARE OR HAVE BEEN ENROLLED IN A CHEMICAL DEPENDENCY/SUBSTANCEABUSE PROGRAM, SOME INFORMATION MAY BE OMITTED. This clinical summary was aggregated from multiple sources. Caution should be exercised in using it in the provision of clinical care. This summary normalizes information from multiple sources, and as a consequence, information in this document may materially change the coding, format and clinical context of patient data. In addition, data may be omitted in some cases. CLINICAL DECISIONS SHOULD BE BASED ON THE PRIMARY CLINICAL RECORDS. [employer] provides no warranty or guarantee of the accuracy or completeness of information in this document.
[2023-04-22 17:07] LABS: Intrinsic Factor Ab 1.1 AU/mL (0.0-1.1)
== END | disposition home or self-care (01) ==
LOC: MTLAB 09:01
PROVIDERS: Referring Provider Psychiatry & Neurology Neurology; Visit Provider Psychiatry & Neurology Neurology
DX: E53.8 Deficiency of other specified B group vitamins (principal)
CPT/HCPCS: 36415; 86340

== ENCOUNTER 2023-04-22 08:00 | Outpatient (RCR) | payer OTHER, SELFPAY ==
--- NOTE | 2023-04-12 12:57 | HP.OTEVAL_ITS ---
Patient's Visit Information Visit Information Visit Information: PRADEEP JIMENEZ is a 63 year old F, referred to Occupational Therapy by Dr. Azael Cavanaugh MD, with a diagnosis of I 63.9 cerebral infarction. Date of Evaluation: 04/12/23 Occupational Therapist: Rozina Lowry Subjective Subjective: pt arrives 10 min late upset due to insurance not covering eval however pt states she is doing well and she plans to call insurance company Objective Objective/Observation: This female pt with CVA November 052022 impacting pts LUE. Pt is R hand dominant. Pt states she had some therapy during hospitilization however nothing since this. Pt reports a slight weakness in her LUE c/o of weakness associated with triceps as well as wrist extensors. Pt also with c/o of burning sensation along tricep as well as dorsum of hand. ROM ROM Comments: LUE AROM WFL RUE AROM WFL Strength Shoulder: L 17.2 R 23 Elbow: L 9.7 R14.3 Forearm: L 14.8 R 25 Wrist: L 9.3 R12.5 Gis Physical Scientist: L 40 R40 Lateral Pinch: L18 R 25 Tripod Pinch: L 18 R22 Strength Comments: Pt with decreased strength of L triceps, L shoulder, as well as wrist extensor and pinch strength in comparison to RUE. pt reports this is her main concern she notes throughout the day Sensation Sensation Comments: burning sensation at tricep as well as dorsum of hand Nine Hole Peg Right: 20 sec Left: 25 sec Comments: slight decrease in coordination of L hand during FMC tasks Quick DASH-Disab of Arm,Shoulder& Hand Quick DASH Score: 11.3625 Goals Goal:: Pt will demonstrate increased strength of triceps by 3 pounds or more prior to discharge pt will demonstrate increased strength of wrist extensors by 2 pounds or more prior to discharge Pt will demonstrate increased lateral as well as tripod pinch by 3 pounds or more prior to discharge Goal:: pt will improve 9 hole peg score to 22 seconds or less in order to improve dexterity and coordination before discharge Goal:: pt will demonstrate 100% accuracy in radial nerve glide HEP by second session Goal:: pt will improve quick dash score by 3 points in order to maximize functional and use of LUE prior to discharge Rehabilitation Rehabilitation Potential: Good Anticipated Interventions Anticipated Interventions: A/AAROM/PROM, Strengthening, Massage, Triggerpoint Release, Sensory Retraining, Modalities, Ergonomic Education, Dynamic Sitting Balance, Fine Motor Coord/Dusty, Neuro Reeducation, Sensory Stimulation and Home Program Visit Plan Frequency: 2x /Week Duration: 4 Weeks General Plan: Plan is to re gain strength of shoulder, triceps, wrist extensors as well as pinch strength provide training in radial nerve glide to decrease burning sensation provide training in joint protection and positioning provide pt with HEP for carryover and increase L hand coordination and dexterity. TEXT: Thank you for the opportunity to evaluate your patient. For Medicare and Medicare HMO plans, please review the plan of care and approve it. It will need to be FAXED BACK to us at [phone] for Medicare purposes. Please let me know if there are questions or concerns regarding this plan of care. Physician Signature: Date:
--- NOTE | 2023-09-07 13:46 | HP.OT.NRP ---
Patient Information Patient Information: PRADEEP JIMENEZ was seen in my office for initial evaluation on 04/12/23. The following Plan of Care was established for this patient: POC Established Initial Frequency: 2x /Week Initial Duration: 4 Weeks Plan: Continue POC: (4 weeks - 2x week) Anticipated Interventions Anticipated Interventions: A/AAROM/PROM, Strengthening, Massage, Triggerpoint Release, Sensory Retraining, Modalities, Ergonomic Education, Dynamic Sitting Balance, Fine Motor Coord/Dusty, Neuro Reeducation, Sensory Stimulation and Home Program Last Seen Last Seen: This patient was last seen in our office 04/22/23. Pertinent comments regarding their Occupational therapy will appear below: This 63 year old female seen for dx of CVA. pt seen for eval and two additional sessions and does not return. discharge at this time due to time lapse in services. At this point I will be discontinuing this patient from occupational therapy. I would be happy to see this patient again in the future if found appropriate by the physician. Thank you! Rozina Lowry
== END 2023-04-22 19:00 | disposition home or self-care (01) ==
LOC: OT 08:00
PROVIDERS: Referring Provider Psychiatry & Neurology Neurology; Visit Provider Psychiatry & Neurology Neurology
DX: Z86.73 Personal history of transient ischemic attack (TIA), and cerebral infarction without residual deficits (principal)
CPT/HCPCS: 97110; 97166

== ENCOUNTER → 2023-08-01 | Outpatient (CLI) | payer OTHER, SELFPAY ==
[2023-08-03 11:09] LABS: Albumin 3.5 g/dL (2.9-4.4); Alpha-1-Globulins 0.3 g/dL (0.0-0.4); Gamma Globulin 1.1 g/dL (0.4-1.8); Immunoglobulin A 366 mg/dL (87-352); Immunoglobulin G 1109 mg/dL (586-1602); Immunoglobulin M 94 mg/dL (26-217)
== END | disposition home or self-care (01) ==
LOC: MTLAB 09:38
PROVIDERS: Referring Provider Psychiatry & Neurology Neurology; Visit Provider Psychiatry & Neurology Neurology
DX: G62.9 Polyneuropathy, unspecified (principal)
CPT/HCPCS: 36415; 82784; 84165; 86334; 86335

== ENCOUNTER → 2023-11-14 | Outpatient (CLI) | payer OTHER, SELFPAY ==
--- NOTE | 2023-11-14 08:03 | CDU_ITS ---
Reason For Study: Carotid stenosis Rt. Velocities/BP Lt. Velocities/BP Prox CCA 78.7/23.9 cm/sec. Prox CCA 77.8/23 cm/sec. Mid CCA 73/25.8 cm/sec. Mid CCA 80.6/27.7 cm/sec. Dist CCA 60.7/20.1 cm/sec. Dist CCA 69.2/21.1 cm/sec. Prox ICA 62.6/23.9 cm/sec. Prox ICA 54.7/21.4 cm/sec. Mid ICA 74/28.6 cm/sec. Mid ICA 86.3/29.8 cm/sec. Dist ICA 86.3/30.5 cm/sec. Dist ICA 74/31.1 cm/sec. Rt. ICA/CCA = 1.18. Lt. ICA/CCA = 1.07. Prox ECA 86.3/14.5 cm/sec. Prox ECA 87.6/13.9 cm/sec. Rt. Vert. 54.1/18.2 cm/sec. Lt. Vert. 53.2/18.8 cm/sec. Right Extracranial There is homogeneous, smooth atherosclerotic plaque noted in the right common carotid artery. There is heterogeneous, irregular atherosclerotic plaque noted in the right internal carotid artery. There is intimal thickening but no significant atherosclerotic plaque noted in the right external carotid artery. Antegrade flow is noted in the right vertebral artery. Left Extracranial There is heterogeneous, irregular atherosclerotic plaque noted in the left common carotid artery. There is heterogeneous, irregular atherosclerotic plaque noted in the left internal carotid artery. There is intimal thickening but no significant atherosclerotic plaque noted in the left external carotid artery. Antegrade flow is noted in the left vertebral artery. Procedure Carotid Duplex 60610. This is a Carotid Duplex examination using B-mode, color flow and specral Doppler. Exam performed in department. VL/Carotid Duplex Ultrasound Interpretation Summary Mild (<50%) stenosis right extracranial internal carotid. Mild (<50%) stenosis left extracranial internal carotid. Patent and antegrade vertebrals bilaterally. Ordering Physician: Francisco Javier Valentine Performed By: Anita Castle RVT
== END | disposition home or self-care (01) ==
LOC: CVS 08:00
PROVIDERS: Referring Provider Surgery Trauma Surgery; Visit Provider Surgery Trauma Surgery
DX: I65.23 Occlusion and stenosis of bilateral carotid arteries (principal)
CPT/HCPCS: 93880

== ENCOUNTER → 2024-01-23 | Outpatient (CLI) | payer OTHER, SELFPAY ==
--- NOTE | 2024-01-23 09:51 | RAD_ITS ---
STUDY: X-RAY - LEFT KNEE REASON FOR EXAM: Female, 63 years old. PAIN TECHNIQUE: 3 view(s) of the knee. COMPARISON: None. FINDINGS: Normal visualized distal femur. Normal visualized proximal tibia and fibula. Normal proximal tibiofibular articulation. There is mild degenerative arthrosis of the medial femorotibial compartment. There is mild degenerative arthrosis of the lateral femorotibial compartment. There is mild degenerative arthrosis of the patellofemoral articulation. The soft tissue structures are unremarkable. RAD/Knee 3 Views IMPRESSION: Degenerative arthrosis. Electronically Signed: Albino Johnson MD at 11:06 EST ,
[2024-01-23 13:41] LABS: AST(SGOT) 16 U/L (15-37); Alanine Aminotransfer ALT/SGPT 25 U/L (13-56); Albumin, Serum 3.1 g/dL (3.2-5.0); Alkaline Phosphatase 103 U/L (45-117); Cholesterol 159 mg/dL (200); Globulin 4.2 g/dL (2.2-4.2); High Density Lipoprotein 53 mg/dL; Protein, Total 7.3 g/dL (6.4-8.2); Triglycerides 92 mg/dL; Very Low Density Lipoprotein 18 mg/dL (5-40)
== END | disposition home or self-care (01) ==
PROVIDERS: Referring Provider Psychiatry & Neurology Neurology; Visit Provider Psychiatry & Neurology Neurology
DX: M25.562 Pain in left knee (principal); Z86.73 Personal history of transient ischemic attack (TIA), and cerebral infarction without residual deficits
CPT/HCPCS: 36415; 73562; 80061; 80076

== ENCOUNTER 2024-05-25 23:10 | Emergency (ER) | payer OTHER, SELFPAY ==
[2024-05-25 23:13] VITALS: BP 168/86; PULSE 86; RESP 18; TEMP 36.6; O2SAT 92; BMI 29.5
--- NOTE | 2024-05-25 23:50 | EDS_ITS ---
HPI History of Present Illness Chief Complaint: Nosebleed Informant: patient and family Narrative Narrative: Patient is a 64-year-old female with past medical history of ischemic CVA currently on Plavix. She states she has had nasal congestion and cough for approximately 2 weeks. She states that this evening she was blowing her nose and then it began to bleed profusely out of the left nostril. She states she was able to get this stopped after 10 minutes or so but then dislodged a large clot which concerned her and therefore she presents for evaluation. [facility] Medical History Carotid stenosis, symptomatic, with infarction Symptoms of cerebrovascular accident (CVA) Acute ischemic right MCA stroke No acute medical problems Home Medications ?Medication ?Instructions ?Recorded ?Last Taken ?Type acetaminophen 500 mg tablet 500 - 1,000 mg PO Q6H PRN PRN Pain 07/13/19 Unknown History Or Fever epinephrine 0.3 mg/0.3 mL 0.3 mg IM X1 PRN yellow dayanna ets 04/04/23 Unknown History injection, auto-injector fluticasone propionate 50 1 spray NASAL DAILY PRN dequan rgies 09/06/23 Unknown History mcg/actuation nasal spray,suspension atorvastatin 80 mg tablet 80 mg PO QHS #30 tabs Unknown Rx clopidogrel 75 mg tablet 75 mg PO DAILY #30 tabs 01/07 07/31 Unknown Rx lidocaine 5 % topical patch 1 patch topical QDAY #30 e a 01/23/24 Unknown Rx amoxicillin 875 mg tablet 875 mg PO BID 7 days #14 tab s 05/25/24 Unknown Rx Allergy/AdvReac Type Severity Reaction Status Date / Time insect venom (yellow jacket) Allergy Severe Anaphylaxis Verified 05/25/24 23:12 aspirin Allergy Shortness Verified 05/25/24 23:12 of breath clarithromycin (From Biaxin) AdvReac Severe Rash Verified 05/25/24 23:12 Environmental Allergies: AdvReac Rash Verified 05/25/24 23:12 Uncoded zinc AdvReac Rash Verified 05/25/24 23:12 Surgical History History of ankle surgery H/O tubal ligation Social History Smoking Status: Current every day smoker tobacco type: cigarettes alcohol intake: current alcohol intake frequency: holidays/special occasions only substance use type: does not use additional social history: Aspirin use: No. Ibuprofen use: No. ROS ROS ED Constitutional Constitutional ED: Denies chills or fever(s) Eyes Eyes: Denies change in vision ENT ENT ED: Reports rhinorrhea and other Details: Positive nosebleed ; Denies sore throat Cardiovascular Cardiovascular: Denies chest pain Respiratory/Chest Respiratory/Chest: Reports cough; Denies dyspnea Gastrointestinal Gastrointestinal: Denies abdominal pain, diarrhea, nausea or vomiting Genitourinary Genitourinary ED: Denies dysuria Musculoskeletal Musculoskeletal: Denies myalgias Integumentary Denies rash Neurologic Neurologic: Denies headache(s) or weakness Hematologic/Lymphatic Hematologic/Lymphatic: Reports easy bleeding and easy bruising EXAM Physical Exam Const Vital Signs: 05/25/24 23:13 Temperature 98 F Temperature Source Temporal Pulse Rate 86 Respiratory Rate 18 Blood Pressure 168/86 H Blood Pressure Mean 113 Pulse Ox 92 Oxygen Delivery Method Room Air Positive well nourished and well developed General Appearance ED: well developed; Negative for pallor HEENT HEENT Narrative: Nasal mucosa is hyperemic and boggy with enlarged inferior nasal turbinate. There is mild scabbing/abrasion of the lower septum consistent with history of nosebleed but no active bleeding noted Cobblestoning is present in the posterior pharynx consistent with sinus drainage without dried blood or active bleeding present No airway edema or compromise There is left-sided maxillary and frontal sinus tenderness to palpation Eyes PERRL and EOMs intact bilaterally Neck supple Resp normal respiratory effort and clear to auscultation bilaterally Cardio regular rate and regular rhythm Extremity normal to inspection Neuro oriented x3, CN's II-XII intact bilaterally and no sensory deficits noted Sensorium / Orientation: alert Motor Exam: strength 5/5 throughout Psych mental status grossly normal Skin no rashes or lesions noted General Skin Exam: Negative for jaundice or pallor MDM MDM MDM Narrative Medical decision making narrative: Patient arrived to ER hypertensive but otherwise with stable vitals. She reported spontaneous bleeding from left nostril that stopped with minimal int ervention at home prior to arrival. She is on Plavix but bleeding was mild in nature and without persistent bleeding I have low concern for acute blood loss anemia. By history and exam she also has changes concerning for upper respiratory tract infection. We discussed potential chest x-ray for pneumonia but breath sounds are clear and her pulse ox is normal and therefore we have low concern for this and she does not want an x-ray obtained. At this time as bleeding has resolved spontaneously there is no need for packing or cauterization. Based on her 2-week history of congestion and drainage as well as maxillary and frontal sinus tenderness I will place her on a round of amoxicillin to cover for potential developing sinusitis. However as she does not have active bleeding at this time there is no need for further intervention regarding her epistaxis and she is otherwise safe for discharge. History & Record Review Discussion w/independent historian: Patient Discharge Plan Triage Chief Complaint: Nosebleed ED Provider: James Holman Dx/Rx/DC Orders Clinical Impression: Upper respiratory infection, Acute anterior epistaxis, Hypercholesterolemia, History of CVA (cerebrovascular accident) Instructions: ED Epistaxis (Adult), ED Sinusitis (Antibiotic Treatment) Prescriptions: New amoxicillin 875 mg tablet 875 mg PO BID 7 Days Qty: 14 0RF No Action lidocaine 5 % adhesive patch,medicated 1 patch topical QDAY Qty: 30 10RF Rx Instructions: leave on most painful area for up to 12 hrs clopidogrel 75 mg tablet 75 mg PO DAILY Qty: 30 10RF atorvastatin 80 mg tablet 80 mg PO QHS Qty: 30 10RF acetaminophen 500 MG tablet 500 - 1,000 mg PO Q6H PRN PRN (Reason: Pain Or Fever) epinephrine 0.3 mg/0.3 mL auto-injector 0.3 mg IM X1 PRN (Reason: yellow jackets) Rx Instructions: EpiPen fluticasone propionate 50 mcg/actuation spray,suspension 1 spray NASAL DAILY PRN (Reason: allergies) Primary Care Provider: NAOMI BABIN Referrals: Care Physician,No Primary [Non-Staff] - Activity Restrictions/Additional Instructions: Your nose is bleeding secondary to a small break in your nasal septum. This will need to scab over and heal as any wound would. If bleeding reoccurs secondary to blowing your nose or the scab falling off hold pressure for 10 to 20 minutes and if it resolves this is okay. However bleeding persist or you have any further concerns please return to the ER for repeat evaluation. Please take the prescribed amoxicillin as directed to help with sinusitis Print Language: Faroese Disposition Disposition: Home, Self Care Discharge Date/Time: 05/26/24 00:00
[2024-05-25] MEDS: AMOXICILLIN 500 MG CAPSULE 1000 MG PO (23:57)
== END 2024-05-26 | disposition home or self-care (01) ==
PROVIDERS: Emergency Provider Emergency Medicine; Visit Provider Emergency Medicine
DX: J06.9 Acute upper respiratory infection, unspecified (principal); R04.0 Epistaxis; E78.00 Pure hypercholesterolemia, unspecified; Z86.73 Personal history of transient ischemic attack (TIA), and cerebral infarction without residual deficits; R05.9 Cough, unspecified; F17.210 Nicotine dependence, cigarettes, uncomplicated; Z98.51 Tubal ligation status
CPT/HCPCS: 99282

== ENCOUNTER 2024-05-26 23:01 | Emergency (ER) | payer OTHER, SELFPAY ==
[2024-05-26 23:01] VITALS: BP 156/87; PULSE 89; RESP 16; TEMP 36.9; O2SAT 93; BMI 29.0
--- NOTE | 2024-05-26 23:19 | EX.ED.DYSGE1 ---
HPI History of Present Illness Chief Complaint: Nosebleed Informant: patient Narrative Narrative: 64-year-old female was seen here last night for a nosebleed, she states it has recurred and difficult to stop so she came back. She is on clopidogrel. She been having congestion for the past 2 weeks and is started when blowing her nose 2 or 3 days ago. She is having large clots. Most of it is coming out the front, left side, none on the right, swallowing very little blood unless she snorts on accident. No syncope, near syncope, symptoms of anemia. No other new symptoms. [facility] Medical History Carotid stenosis, symptomatic, with infarction Symptoms of cerebrovascular accident (CVA) Acute ischemic right MCA stroke No acute medical problems Home Medications ?Medication ?Instructions ?Recorded ?Last Taken ?Type acetaminophen 500 mg tablet 500 - 1,000 mg PO Q6H PRN PRN Pain 07/13/19 Unknown History Or Fever epinephrine 0.3 mg/0.3 mL 0.3 mg IM X1 PRN yellow jackets 04/04/23 Unknown History injection, auto-injector fluticasone propionate 50 1 spray NASAL DAILY PRN allergies 09/06/23 Unknown History mcg/actuation nasal spray,suspension atorvastatin 80 mg tablet 80 mg PO QHS #30 tabs 01/23/24 Unknown Rx clopidogrel 75 mg tablet 75 mg PO DAILY #30 tabs 01/23/24 Unknown Rx lidocaine 5 % topical patch 1 patch topical QDAY #30 ea 01/23/24 Unknown Rx amoxicillin 875 mg tablet 875 mg PO BID 7 days #14 tabs 05/25/24 Unknown Rx Allergy/AdvReac Type Severity Reaction Status Date / Time insect venom (yellow jacket) Allergy Severe Anaphylaxis Verified 05/26/24 23:02 aspirin Allergy Shortness Verified 05/26/24 23:02 of breath clarithromycin (From Biaxin) AdvReac Severe Rash Verified 05/26/24 23:02 Environmental Allergies: AdvReac Rash Verified 05/26/24 23:02 Uncoded zinc AdvReac Rash Verified 05/26/24 23:02 Surgical History History of ankle surgery H/O tubal ligation Social History Smoking Status: Current every day smoker tobacco type: cigarettes alcohol intake: current alcohol intake frequency: holidays/special occasions only substance use type: does not use additional social history: Aspirin use: No. Ibuprofen use: No. ROS ROS ED Constitutional Constitutional ED: Denies chills or fever(s) ENT ENT ED: Reports epistaxis, nasal congestion and rhinorrhea Cardiovascular Cardiovascular: Reports lightheadedness; Denies chest pain or palpitations Respiratory/Chest Respiratory/Chest: Denies dyspnea Gastrointestinal Gastrointestinal: Denies abdominal pain, diarrhea, nausea or vomiting Genitourinary Genitourinary ED: Denies dysuria or hematuria Musculoskeletal Musculoskeletal: Denies myalgias or neck pain Integumentary Denies abscess or rash Neurologic Neurologic: Denies headache(s), paresthesias or weakness Psychiatric Psychiatric: Denies depression or suicidal thoughts Endocrine Endocrinology: Denies polydipsia or polyuria EXAM Physical Exam Const Vital Signs: 05/26/24 23:01 Temperature 98.5 F Temperature Source Temporal Pulse Rate 89 Respiratory Rate 16 Blood Pressure 156/87 H Blood Pressure Mean 110 Pulse Ox 93 Oxygen Delivery Method Room Air Positive well nourished and well developed General Appearance ED: well developed and NAD HEENT Reports moist mucous membranes HEENT Narrative: Large clot emanating from the left naris, the right side is clear. There is minimal active bleeding mostly just the clot present. There is posterior pharyngeal blood but without active bleeding. normocephalic and atraumatic Throat: Negative for posterior oropharynx abnormal Eyes PERRL and EOMs intact bilaterally Neck no lymphadenopathy, supple and no meningeal signs Resp normal respiratory effort and clear to auscultation bilaterally Cardio no murmurs Rate: regular rate; Negative for tachycardic Rhythm: regular rhythm Extremity normal to inspection Neuro oriented x3, CN's II-XII intact bilaterally and no sensory deficits noted Sensorium / Orientation: alert Motor Exam: strength 5/5 throughout Psych mental status grossly normal Skin Lesions: no lesions Rashes: no rashes MDM MDM MDM Narrative Medical decision making narrative: Given the persistent bleeding I did obtain a CBC, her hemoglobin is 14.4 reassuring and her platelets are normal although she is on clopidogrel. Initially we used Chance mix and after she was able to blow her nose and clear all the clots out, I aerosolized 2 cc of Chance mix into her nose, she felt to go down her throat, then placed a pledget soaked in the same into the front of her nose and she had temporary control of the bleeding. On reevaluation of the area, there appeared to be several possible areas of the bleeding were coming from. I cauterized a couple of them, but she had some persistent oozing. I placed another nasal pledget soaked in Chance mix against the area, this controlled the bleeding, but on reevaluation the source of the bleeding appears to be at the posterior aspect of the anterior septum, and it is where the tissue curves medially and I am not able to visualize the mucosa, which is back by the inferior turbinate and difficult to get to and impossible for me to chemically cauterize blindly. Therefore I recommend packing, which was performed. I used a short 3 cm Merisel packing, this provided good hemostasis and she tolerated it well. She is encouraged to follow-up with ENT in 2 to 3 days and she was given their information for reevaluation or removal of the packing. Lab Data Attestation: I reviewed the patient's lab results. Labs: Laboratory Results - last 24 hr 05/26/24 23:20 WBC 7.2 RBC 5.22 Hgb 14.4 Hct 44.2 MCV 84.7 MCH 27.6 MCHC 32.6 RDW Std Deviation 45.6 H RDW Coeff of Delilah 14.9 H Plt Count 265 MPV 8.7 Procedures Other Procedures Procedure(s): Epistaxis care-see above Discharge Plan Triage Chief Complaint: Nosebleed ED Provider: Andrey Marquez Dx/Rx/DC Orders Clinical Impression: Acute anterior epistaxis Instructions: ED Epistaxis (Adult) Prescriptions: No Action lidocaine 5 % adhesive patch,medicated 1 patch topical QDAY Qty: 30 10RF Rx Instructions: leave on most painful area for up to 12 hrs clopidogrel 75 mg tablet 75 mg PO DAILY Qty: 30 10RF atorvastatin 80 mg tablet 80 mg PO QHS Qty: 30 10RF acetaminophen 500 MG tablet 500 - 1,000 mg PO Q6H PRN PRN (Reason: Pain Or Fever) epinephrine 0.3 mg/0.3 mL auto-injector 0.3 mg IM X1 PRN (Reason: yellow jackets) Rx Instructions: EpiPen fluticasone propionate 50 mcg/actuation spray,suspension 1 spray NASAL DAILY PRN (Reason: allergies) amoxicillin 875 mg tablet 875 mg PO BID 7 Days Qty: 14 0RF Primary Care Provider: NAOMI BABIN Referrals: Jesus Fletcher MD [Med Staff - Active Staff] - (2-3 days - call Tuesday for appt) Print Language: Hebrew Disposition Disposition: Home, Self Care
[2024-05-26] MEDS: Mixture 30 ML Bottle TOPICAL (23:23)
[2024-05-26] MEDS: Silver Nitrate (BKC) 1 EACH TOPICAL (23:24)
[2024-05-26 23:27] LABS: Hematocrit 44.2 % (37-47); Hemoglobin 14.4 g/dL (12.0-15.0); Mean Corp Hgb Conc 32.6 g/dL (32-36); Mean Corpuscular Hgb 27.6 pg (27.0-32.0); Mean Corpuscular Volume 84.7 fL (81-99); Mean Platelet Vol. 8.7 fl (6.2-12.0); Platelet Count 265 K/mm3 (150-450); RBC Distribution Width CV 14.9 % (11.6-14.6); RBC Distribution Width SD 45.6 fl (35.1-43.9); Red Blood Count 5.22 M/mm3 (4.2-5.4); White Blood Count 7.2 K/mm3 (4.4-11.0)
[2024-05-27 01:01] VITALS: BP 159/93; PULSE 68; RESP 16; TEMP 36.6; O2SAT 95
== END 2024-05-27 01:23 | disposition home or self-care (01) ==
PROVIDERS: Emergency Provider Emergency Medicine; Visit Provider Emergency Medicine
DX: R04.0 Epistaxis (principal); Z79.02 Long term (current) use of antithrombotics/antiplatelets; F17.210 Nicotine dependence, cigarettes, uncomplicated; Z86.73 Personal history of transient ischemic attack (TIA), and cerebral infarction without residual deficits
CPT/HCPCS: 30901; 85027; 99283; A4216

== ENCOUNTER → 2024-11-15 | Outpatient (CLI) | payer BC, SELFPAY ==
[2024-11-15 10:32] LABS: AST(SGOT) 20 U/L (<=31); Alanine Aminotransfer ALT/SGPT 18 U/L (<=34); Albumin, Serum 4.1 g/dL (3.4-4.8); Alkaline Phosphatase 102 U/L (35-104); Bilirubin, Direct 0.23 mg/dL (0.00-0.30); Globulin 3.5 g/dL (2.2-4.2)
[2024-11-15 11:11] LABS: Cholesterol 165 mg/dL (<=200); Low Density Lipoprotein Calc. 92 mg/dL; Triglycerides 87 mg/dL; Very Low Density Lipoprotein 17 mg/dL (5-40); cholesterol:hdl ratio screen 2.97
== END | disposition home or self-care (01) ==
LOC: MTLAB 08:55
PROVIDERS: PCP Psychiatry & Neurology Neurology; Referring Provider Psychiatry & Neurology Neurology; Visit Provider Psychiatry & Neurology Neurology
DX: R73.9 Hyperglycemia, unspecified (principal); E78.00 Pure hypercholesterolemia, unspecified
CPT/HCPCS: 36415; 80061; 80076; 83036